=== PATIENT | female | born 1945 | race Caucasian/White ===

== ENCOUNTER 2016-10-29 13:23 | Observation (INO) | payer BC, MEDICARE ==
[2016-10-29] VITALS (11 sets, daily range): BP systolic 111–161; BP diastolic 57–87
[~2016-10-29] VITALS: Ht 167.6 cm; Wt 77.8 kg
[~2016-10-29 13:23] MED LIST: HYOS-19 SL; PANT40TA2 PO
--- OUTSIDE RECORDS SUMMARY | 2016-10-29 13:31 | XMS REPORT | Continuity of Care Document ---
Author Author [facility] Organization [facility] Address Unknown Phone Unavailable Allergies Active Description Code Type Severity Reaction Onset Reported/Identified Relationship to Patient Clinical Status Yes No Known Drug Allergies [id number] Drug Allergy Unknown N/ A 07/26/2015 Medications Problems Date Dx Coded Attending Type Code Diagnosis Diagnosed By 06/25/2015 ZULEMA HAMLIN MD, Ot J44.9 CHRONIC OBSTRUCTIVE PULMONARY DISEASE, U 07/11/2015 ZULEMA HAMLIN MD, Ot J44.9 CHRONIC OBSTRUCTIVE PULMONARY DISEASE, U 07/11/2015 ZULEMA HAMLIN MD, Ot J44.9 CHRONIC OBSTRUCTIVE PULMONARY DISEASE, U 07/13/2015 ZULEMA HAMLIN MD, Ot J44.9 CHRONIC OBSTRUCTIVE PULMONARY DISEASE, U 07/25/2015 ZULEMA HAMLIN MD, Ot J44.9 CHRONIC OBSTRUCTIVE PULMONARY DISEASE, U 07/25/2015 ZULEMA HAMLIN MD, Ot Z12.31 ENCNTR SCREEN MAMMOGRAM FOR MALIGNANT NE 07/26/2015 MAYCOL ELDER MD, Ot K21.9 GASTRO-ESOPHAGEAL REFLUX DISEASE WITHOUT 07/26/2015 MAYCOL ELDER MD Ot Z01.818 ENCOUNTER FOR OTHER PREPROCEDURAL EXAMIN 07/26/2015 MAYCOL ELDER MD, Ot Z12.11 ENCOUNTER FOR SCREENING FOR MALIGNANT NE 07/27/2015 MAYCOL ELDER MD, Ot K21.0 GASTRO-ESOPHAGEAL REFLUX DISEASE WITH ES 07/27/2015 MAYCOL ELDER MD, Ot K29.70 GASTRITIS, UNSPECIFIED, WITHOUT BLEEDING 07/27/2015 MAYCOL ELDER MD, Ot K44.9 DIAPHRAGMATIC HERNIA WITHOUT OBSTRUCTION 07/27/2015 MAYCOL ELDER MD, Ot K57.30 DVRTCLOS OF LG INT W/O PERFORATION OR AB 07/27/2015 MAYCOL ELDER MD, Ot K62.1 RECTAL POLYP 07/27/2015 MAYCOL ELDER MD, Ot K64.1 SECOND DEGREE HEMORRHOIDS 07/27/2015 JAEL WONG, MAYCOL Ot Z12.11 ENCOUNTER FOR SCREENING FOR MALIGNANT NE 08/07/2015 ZULEMA HAMLIN MD, Ot Z12.31 ENCNTR SCREEN MAMMOGRAM FOR MALIGNANT NE 08/17/2015 ZULEMA HAMLIN MD, Ot J44.9 CHRONIC OBSTRUCTIVE PULMONARY DISEASE, U 08/31/2015 ZULEMA HAMLIN MD, Ot J44.9 CHRONIC OBSTRUCTIVE PULMONARY DISEASE, U Procedures Results Encounters ACCT No. Visit Date/Time Discharge Status Pt. Type Provider Facility Loc./Unit Complaint [id number] 07/27/2015 08:13:00 2015 10:35:00 DIS Outpatient MAYCOL ELDER MD [facility] [id number] 07/26/2015 08:00:00 2015 08:59:00 DIS Outpatient MAYCOL ELDER MD [facility] PREOP [id number] 07/13/2015 09:15:00 2015 23:59:59 CLS Outpatient ZULEMA HAMLIN MD [facility] RAD [id number] 06/22/2015 09:41:00 2015 23:59:59 CLS Outpatient ZULEMA HAMLIN MD [facility] RAD
--- OUTSIDE RECORDS SUMMARY | 2016-10-29 13:31 | XMS REPORT | Clinical Summary ---
Author Author [facility] Organization [facility] Address Unknown Phone Unavailable Care Team Providers Care Forestry Conservation Worker Name Role Phone PCP Unavailable Source Comments Some departments are not documenting in the electronic medical record. If you do not see the information that you expected, contact Release of Information in the Health Information Management department at [phone] for further assistance in locating additional records.[facility] Allergies Not on File Current Medications Not on file Active Problems Not on file Social History Tobacco Use Types Packs/Day Years Used Date Never Assessed Sex Assigned at Date Recorded Not on file Last Filed Vital Signs Not on file Plan of Treatment Health Maintenance Due Date Last Done Comments HEPATITIS C SCREENING 1945 PHYSICAL (COMPREHENSIVE) 1953 EXAM PERTUSSIS VACCINE 1957 TETANUS VACCINE 1963 BREAST CANCER SCREENING 1986 COLORECTAL CANCER 02/16/1996 SCREENING SHINGLES VACCINE 2006 OSTEOPOROSIS SCREENING 2011 PREVNAR/PNEUMOVAX (#1) 2011 INFLUENZA VACCINE 11/07/2016 Results Not on filefrom Last 3 Months
[2016-10-29] MEDS ORDERED: RX-NITROGLYCERIN 0.4 MG TAB BTL 25'S SL PRN (13:45)
[2016-10-29 13:56] LABS: BASOPHILS # (AUTO) 0.1 10^3/uL (0.0-0.1); BASOPHILS % (AUTO) 1 % (0-10); EOSINOPHILS # (AUTO) 0.2 10^3/uL (0.0-0.3); EOSINOPHILS % (AUTO) 3 % (0-10); LYMPHOCYTES # (AUTO) 1.2 X 10^3 (1.0-4.0); LYMPHOCYTES % (AUTO) 16 % (12-44); MEAN CORPUSCULAR HEMOGLOBIN 29 PG (25-34); MEAN CORPUSCULAR HGB CONC 33 G/DL (32-36); MEAN CORPUSCULAR VOLUME 89 FL (80-99); MEAN PLATELET VOLUME 10.2 FL (7.4-10.4); MONOCYTES # (AUTO) 0.5 X 10^3 (0.0-1.0); MONOCYTES % (AUTO) 7 % (0-12); NEUTROPHILS # (AUTO) 5.4 X 10^3 (1.8-7.8); NEUTROPHILS % (AUTO) 73 % (42-75); PLATELET COUNT 314 10^3/uL (130-400); RED BLOOD COUNT 4.18 10^6/uL (4.35-5.85); RED CELL DISTRIBUTION WIDTH 13.4 % (10.0-14.5); WHITE BLOOD COUNT 7.3 10^3/uL (4.3-11.0)
--- NOTE | 2016-10-29 14:03 | ED Chest Pain ---
General Chief Complaint: Chest Pain Stated Complaint: CHEST PAINS Nursing Triage Note: ONSET OF CHEST PAIN APX 9A REPORTS PAIN IS ACROSS CHEST. Nursing Sepsis Screen: No Definite Risk Source: patient Exam Limitations: no limitations History of Present Illness Time seen by provider: 13:31 Initial Comments Here with complaint of central chest pain onset at 9 a.m. this morning. She is from [place], [place] and came here due to concerns of chest pain. She is reporting central chest discomfort that she reports is dull and tight. It is getting better over time. She did take aspirin 325 mg by mouth this morning. Does report vomiting as well as pain that worsens with activity. Does have some shortness of breath but states that she has probable borderline COPD. Denies sweating or dizziness. 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 NTG SL COVERSTITCH MACHINE OPERATOR: No Associated Symptoms: No abdominal pain, No back pain, No dizziness, No fever/ chills, No nausea/vomiting, shortness of breath, No weakness Allergies and Home Medications Allergies Coded Allergies: No Known Drug Allergies (Unverified , 07/26/15) Home Medications No Active Prescriptions or Reported Meds Review of Systems Constitutional: see HPI, No chills, No fever EENTM: No Symptoms Reported Respiratory: See HPI, Denies Cough Cardiovascular: See HPI, Chest Pain, Denies Edema, Denies Lightheadedness Gastrointestinal: No Symptoms Reported Genitourinary: No Symptoms Reported Musculoskeletal: no symptoms reported Skin: no symptoms reported All Other Systems Reviewed Negative Unless Noted: Yes Past Jjthjrc-Wsohxp-Rerpjm Hx Patient Social History Alcohol Use: Denies Use Recreational Drug Use: No Smoking Status: Former Smoker Recent Foreign Travel: No Contact w/Someone Who Travel: No Recent Infectious Disease Expo: No Surgeries History of Surgeries: Yes (CYST REMOVED) Surgeries: Hysterectomy, Tonsillectomy, Tubal Ligation Respiratory History of Respiratory Disorde: Yes Respiratory Disorders: Asthma Cardiovascular History of Cardiac Disorders: No Neurological History of Neurological Disord: No 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 Gastrointestinal History of Gastrointestinal Di: No Musculoskeletal History of Musculoskeletal Dis: Yes Musculoskeletal Disorders: Arthritis Endocrine History of Endocrine Disorders: No Psychosocial History of Psychiatric Problem: No Reviewed Nursing Assessment Reviewed/Agree w Nursing PMH: Yes Family Medical History Significant Family History: CAD Over 55 Years Old Physical Exam Vital Signs Vital Sign - Last 12Hours 10/29/16 10/29/16 13:23 14:49 Temp 97.8 Pulse 73 Resp 18 B/P (MAP) 176/89 Pulse Ox 96 O2 Delivery Room Air Capillary Refill : Less Than 3 Seconds General Appearance: No Apparent Distress, WD/WN HEENT: PERRL/EOMI, Pharynx Normal Neck: Non Tender, Supple Respiratory: Lungs Clear, Normal Breath Sounds Cardiovascular: Regular Rate, Rhythm, No Murmur Gastrointestinal: Non Tender, Soft Extremity: Normal Capillary Refill, Normal Range of Motion, Non Tender, No Calf Tenderness Neurologic/Psychiatric: Alert, Oriented x3 Skin: Normal Color, Warm/Dry Progress/Results/Core Measures Results/Orders Lab Results Laboratory Tests Test 10/29/16 13:29 Range/Units White Blood Count 7.3 4.3-11.0 10^3/uL Red Blood Count 4.18 L 4.35-5.85 10^6/uL Hemoglobin 12.3 11.5-16.0 G/DL Hematocrit 37 35-52 % Mean Corpuscular Volume 89 80-99 FL Mean Corpuscular Hemoglobin 29 25-34 PG Mean Corpuscular Hemoglobin Concent 33 32-36 G/DL Red Cell Distribution Width 13.4 10.0-14.5 % Platelet Count 314 130-400 10^3/uL Mean Platelet Volume 10.2 7.4-10.4 FL Neutrophils (%) (Auto) 73 42-75 % Lymphocytes (%) (Auto) 16 12-44 % Monocytes (%) (Auto) 7 0-12 % Eosinophils (%) (Auto) 3 0-10 % Basophils (%) (Auto) 1 0-10 % Neutrophils # (Auto) 5.4 1.8-7.8 X 10^3 Lymphocytes # (Auto) 1.2 1.0-4.0 X 10^3 Monocytes # (Auto) 0.5 0.0-1.0 X 10^3 Eosinophils # (Auto) 0.2 0.0-0.3 10^3/uL Basophils # (Auto) 0.1 0.0-0.1 10^3/uL Prothrombin Time 13.2 12.2-14.7 SEC INR Comment 1.0 0.8-1.4 Activated Partial Thromboplast Time 29 24-35 SEC D-Dimer 0.41 0.00-0.49 UG/ML Sodium Level 138 135-145 MMOL/L Potassium Level 3.9 3.6-5.0 MMOL/L Chloride Level 106 98-107 MMOL/L Carbon Dioxide Level 25 21-32 MMOL/L Anion Gap 7 5-14 MMOL/L Blood Urea Nitrogen 13 7-18 MG/DL Creatinine 1.03 0.60-1.30 MG/DL Estimat Glomerular Filtration Rate 53 BUN/Creatinine Ratio 13 Glucose Level 104 70-105 MG/DL Calcium Level 8.7 8.5-10.1 MG/DL Magnesium Level 2.0 1.8-2.4 MG/DL Total Bilirubin 0.4 0.1-1.0 MG/DL Aspartate Amino Transf (AST/SGOT) 17 5-34 U/L Alanine Aminotransferase (ALT/SGPT) 13 0-55 U/L Alkaline Phosphatase 100 40-136 U/L Myoglobin 60.9 10.0-92.0 NG/ML Troponin I < 0.30 <0.30 NG/ML B-Type Natriuretic Peptide 129.9 H <100.0 PG/ML Total Protein 6.1 L 6.4-8.2 GM/DL Albumin 3.8 3.2-4.5 GM/DL Amylase Level 48 25-125 U/L Lipase 16 8-78 U/L My Orders Orders - SARINA MERIDA MD Ekg Tracing (10/29/16 13:28) Cbc With Automated Diff (10/29/16 13:34) Magnesium (10/29/16 13:34) Chest 1 View, Ap/Pa Only (10/29/16 13:34) Cardiac Profile 1 (10/29/16 13:34) Comprehensive Metabolic Panel (10/29/16 13:34) Myoglobin Serum (10/29/16 13:34) Protime With Inr (10/29/16 13:34) Partial Thromboplastin Time (10/29/16 13:34) O2 (10/29/16 13:34) Monitor-Rhythm Ecg Trace Only (10/29/16 13:34) Lipid Panel (10/30/16 06:00) Rx-Nitroglycerin Sl Tabs (Rx-Nitrostat S (10/29/16 13:45) Saline Lock/Iv-Start (10/29/16 13:34) Lipase (10/29/16 13:34) Amylase (10/29/16 13:34) BNP (10/29/16 13:34) Fibrin Degradation Products (10/29/16 13:34) Vital Signs/I&O Vital Sign - Last 12Hours 10/29/16 10/29/16 13:23 14:49 Temp 97.8 Pulse 73 65 Resp 18 18 B/P (MAP) 176/89 118/76 Pulse Ox 96 O2 Delivery Room Air Blood Pressure Mean: 118 Progress Note : Progress Note Seen and evaluated. IV, EKG, chest x-ray ordered. Monitor patient. No acute findings on evaluation and pain resolved during ER stay. Patient is a higher risk due to family history and age as well as history of smoking. I did discuss the case with Dr. Reyes who accepts patient for admission, observation status. I did talk with Dr. Jones and he did see the patient in the ER. Likely stress test tomorrow. Admit, observation status. Patient and family agree with plan. ECG Initial ECG Impression Date: Oct 29, 2016 Initial ECG Impression Time: 13:31 Initial ECG Rate: 73 Initial ECG Rhythm: Normal Sinus Initial ECG Impression: Normal Initial ECG Comparisson: No Previous ECG Available Comment Sinus rhythm with normal axis. No evidence of ST elevation RI. No previous available for comparison. Interpreted by me. Diagnostic Imaging Diagonstic Imaging: Xray Plain Films/CT/US/NM/MRI: chest Comments [place], [place] NAME: CASSYEMILIA [facility] REC#: [id number] PT STATUS: REG ER : 1945 PHYSICIAN: SARINA MERIDA MD ADMIT DATE: 10/29/16/ER Draft Date of Exam:10/29/16 CHEST 1 VIEW, AP/PA ONLY INDICATION: New onset chest pain. FINDINGS: Cardiomediastinal and hilar contours stable and unremarkable. There is chronic air trapping and features of COPD showing no appreciable change from study of June 2015. No failure, effusion, or pneumothorax; and no focal infiltrate. IMPRESSION: Stable chronic findings. Dictated on workstation # [id number] Dict: 10/29/16 1403 Trans: 10/29/16 1405 [id number] Interpreted by: LYLY CONTRERAS Electronically signed by: Departure Communication Time/Spoke to Admitting Phy: 15:20 Impression Impression: Primary Impression: Chest pain Qualified Codes: R07.9 - Chest pain, unspecified Disposition: ADMITTED INPATIENT Condition: Stable Admissions Decision to Admit Reason: Admit from ER (General) Decision to Admit/Date: Oct 29, 2016 Time/Decision to Admit Time: 15:20 Departure-Patient Inst. Referrals: ZULEMA HAMLIN MD (PCP/Family) Primary Care Physician Scripts No Active Prescriptions or Reported Meds SARINA MERIDA MD Oct 29, 2016 14:03
--- NOTE | 2016-10-29 14:06 | Diagnostic Imaging Report ---
INDICATION: New onset chest pain. FINDINGS: Cardiomediastinal and hilar contours stable and unremarkable. There is chronic air trapping and features of COPD showing no appreciable change from study of June 2015. No failure, effusion, or pneumothorax; and no focal infiltrate. IMPRESSION: Stable chronic findings. Dictated by: Dictated on workstation # [id number]
[2016-10-29 14:10] LABS: PROTHROMBIN TIME PATIENT 13.2 SEC (12.2-14.7)
[2016-10-29 14:17] LABS: ALANINE AMINOTRANSFERASE 13 U/L (0-55); ALBUMIN 3.8 GM/DL (3.2-4.5); AMYLASE 48 U/L (25-125); ANION GAP 7 MMOL/L (5-14); ASPARTATE AMINO TRANSFERASE 17 U/L (5-34); BILIRUBIN,TOTAL 0.4 MG/DL (0.1-1.0); BLOOD UREA NITROGEN 13 MG/DL (7-18); BUN/CREATININE RATIO 13; CALCIUM 8.7 MG/DL (8.5-10.1); CARBON DIOXIDE 25 MMOL/L (21-32); CHLORIDE 106 MMOL/L (98-107); CREATININE SERUM 1.03 MG/DL (0.60-1.30); GFR ESTIMATED 53; GLUCOSE 104 MG/DL (70-105); LIPASE 16 U/L (8-78); POTASSIUM 3.9 MMOL/L (3.6-5.0); SODIUM 138 MMOL/L (135-145); TOTAL PROTEIN 6.1 GM/DL (6.4-8.2)
[2016-10-29 14:23] LABS: MYOGLOBIN SERUM 60.9 NG/ML (10.0-92.0)
--- NOTE | 2016-10-29 15:53 | Consultation-Cardiology ---
HPI-Cardiology Cardiology Consultation Date of Consultation 10/29/16 Date of Admission Time Seen by Provider: 15:50 Indication: chest pain HPI 71 years old lady with history of bronchial asthma, history of tobaccoism, stopped smoking about 10 years ago. Was in her usual state of health until this morning when she started having chest pain, described it as dull achiness across her chest and in the retrosternal area associated with numbness on the left side of her face. Persisted in the morning, took sublingual nitroglycerin then came to the emergency room from [place], pain was improving but continued to have mild discomfort until she arrived to the emergency room by then she was feeling better, did not require any nitroglycerin. Currently she is chest pain- free, admitted having some palpitation, heartburn, mild dyspnea, she reported some chest pain in the remote past. No recent episodes were reported. She is fairly active with no other symptoms. Home Medications & Allergies Allergies: Coded Allergies: No Known Drug Allergies (Unverified , 07/26/15) Home Medication List Reviewed: Yes RBT-Apdjaz-Rmfgsv Hx Patient Social History Employed/Student: employed Alcohol Use: Denies Use Recreational Drug Use: No Smoking Status: Former Smoker Recent Foreign Travel: No Recent Infectious Disease Expo: No Past Medical History Past medical history as discussed below Family Medical History Family Medical Hx Daughter had history of aortic valve congenital disease Constitutional: no symptoms reported, see HPI EENTM: see HPI, no symptoms reported Respiratory: see HPI, short of breath, wheezing Cardiovascular: see HPI, chest pain, No edema, No Hx of Intervention, palpitations, No syncope, No vascular heart diseas, No other Gastrointestinal: see HPI, nausea Genitourinary: no symptoms reported, see HPI Musculoskeletal: no symptoms reported, see HPI Skin: no symptoms reported, see HPI Psychiatric/Neurological: No Symptoms Reported, See HPI Reviewed Test Results Reviewed Test Results Lab Laboratory Tests Test 10/29/16 13:29 Range/Units White Blood Count 7.3 4.3-11.0 10^3/uL Red Blood Count 4.18 L 4.35-5.85 10^6/uL Hemoglobin 12.3 11.5-16.0 G/DL Hematocrit 37 35-52 % Mean Corpuscular Volume 89 80-99 FL Mean Corpuscular Hemoglobin 29 25-34 PG Mean Corpuscular Hemoglobin Concent 33 32-36 G/DL Red Cell Distribution Width 13.4 10.0-14.5 % Platelet Count 314 130-400 10^3/uL Mean Platelet Volume 10.2 7.4-10.4 FL Neutrophils (%) (Auto) 73 42-75 % Lymphocytes (%) (Auto) 16 12-44 % Monocytes (%) (Auto) 7 0-12 % Eosinophils (%) (Auto) 3 0-10 % Basophils (%) (Auto) 1 0-10 % Neutrophils # (Auto) 5.4 1.8-7.8 X 10^3 Lymphocytes # (Auto) 1.2 1.0-4.0 X 10^3 Monocytes # (Auto) 0.5 0.0-1.0 X 10^3 Eosinophils # (Auto) 0.2 0.0-0.3 10^3/uL Basophils # (Auto) 0.1 0.0-0.1 10^3/uL Prothrombin Time 13.2 12.2-14.7 SEC INR Comment 1.0 0.8-1.4 Activated Partial Thromboplast Time 29 24-35 SEC D-Dimer 0.41 0.00-0.49 UG/ML Sodium Level 138 135-145 MMOL/L Potassium Level 3.9 3.6-5.0 MMOL/L Chloride Level 106 98-107 MMOL/L Carbon Dioxide Level 25 21-32 MMOL/L Anion Gap 7 5-14 MMOL/L Blood Urea Nitrogen 13 7-18 MG/DL Creatinine 1.03 0.60-1.30 MG/DL Estimat Glomerular Filtration Rate 53 BUN/Creatinine Ratio 13 Glucose Level 104 70-105 MG/DL Calcium Level 8.7 8.5-10.1 MG/DL Magnesium Level 2.0 1.8-2.4 MG/DL Total Bilirubin 0.4 0.1-1.0 MG/DL Aspartate Amino Transf (AST/SGOT) 17 5-34 U/L Alanine Aminotransferase (ALT/SGPT) 13 0-55 U/L Alkaline Phosphatase 100 40-136 U/L Myoglobin 60.9 10.0-92.0 NG/ML Troponin I < 0.30 <0.30 NG/ML B-Type Natriuretic Peptide 129.9 H <100.0 PG/ML Total Protein 6.1 L 6.4-8.2 GM/DL Albumin 3.8 3.2-4.5 GM/DL Amylase Level 48 25-125 U/L Lipase 16 8-78 U/L Physical Exam Vital Signs Vital Sign - Last 12Hours 10/29/16 10/29/16 13:23 14:49 Temp 97.8 Pulse 73 Resp 18 B/P (MAP) 176/89 Pulse Ox 96 O2 Delivery Room Air Capillary Refill : Less Than 3 Seconds General Appearance: No Apparent Distress, WD/WN Eyes: Bilateral Eye Normal Inspection, Bilateral Eye PERRL, Bilateral Eye EOMI HEENT: PERRL/EOMI, TMs Normal, Normal ENT Inspection, Pharynx Normal Neck: Full Range of Motion, Normal Inspection, Non Tender, Supple, Carotid Bruit Respiratory: Chest Non Tender, Lungs Clear, Normal Breath Sounds, No Accessory Muscle Use, No Respiratory Distress Cardiovascular: Regular Rate, Rhythm, No Edema, No Gallop, No JVD, No Murmur, Normal Peripheral Pulses Gastrointestinal: Normal Bowel Sounds, No Organomegaly, No Pulsatile Mass, Non Tender, Soft Back: Normal Inspection, No CVA Tenderness, No Vertebral Tenderness Extremity: Normal Capillary Refill, Normal Inspection, Normal Range of Motion, Non Tender, No Calf Tenderness, No Pedal Edema Neurologic/Psychiatric: Alert, Oriented x3, No Motor/Sensory Deficits, Normal Mood/Affect Skin: Normal Color, Warm/Dry Lymphatic: No Adenopathy A/P-Cardiology Admission Diagnosis Chest pain nonspecific etiology Gastroesophageal reflux disease Hypertension Bronchial asthma Assessment/Plan Chest pain nonspecific etiology resembling angina, reported improvement, EKG did not show any acute abnormality, cardiac enzymes first set are negative. I will continue monitoring and planning for stress test in the morning assuming her chest pain did not recur and cardiac enzymes were negative. Meanwhile patient was started on PPI. Gastroesophageal reflux disease, I will start on PPI. Dyspnea, wheezing, history of bronchial asthma. Using inhaler. Continue to monitor. Mild hypertension occurred initially during the chest pain episode, currently blood pressure is controlled. Continue to monitor Family history of heart disease Clinical Quality Measures AMI/AHF: ASA po Prior to arrival: Yes (325MG) BOB SCHMIDT MD Oct 29, 2016 15:53
[2016-10-29] MEDS ORDERED: PANTOPRAZOLE 40 MG (PROTONIX) TAB PO ONE (16:00)
--- OUTSIDE RECORDS SUMMARY | 2016-10-29 16:42 | XMS REPORT | Clinical Summary ---
Author Author [facility] Organization [facility] Address Unknown Phone Unavailable Care Team Providers Care Video Intern Name Role Phone PCP Unavailable Source Comments Some departments are not documenting in the electronic medical record. If you do not see the information that you expected, contact Release of Information in the Health Information Management department at [phone] for further assistance in locating additional records.[facility] Allergies Not on File Current Medications Not [...]
--- OUTSIDE RECORDS SUMMARY | 2016-10-29 16:42 | XMS REPORT | Continuity of Care Document ---
Author Author [facility] Organization [facility] Address Unknown Phone Unavailable Allergies Active Description Code Type Severity Reaction Onset Reported/Identified Relationship to Patient Clinical Status Yes No Known Drug Allergies [id number] Drug Allergy Unknown N/ A 07/26/2015 Medications [...] INT W/O PERFORATION OR AB 07/27/2015 MAYCOL EDLER MD, Ot K62.1 RECTAL POLYP 07/27/2015 MAYCOL [...] Status Pt. Type Provider Facility Loc./Unit Complaint [id number] 07/27/2015 08:13:00 2015 10:35:00 DIS Outpatient MAYCOL ELDER MD [facility] [id number] 07/26/2015 08:00:00 2015 08:59:00 DIS Outpatient MAYCOL ELDER MD [facility] PREOP [id number] 07/13/2015 09:15:00 2015 23:59:59 CLS Outpatient ZULEMA HAMLIN MD [facility] RAD [id number] 06/22/2015 09:41:00 2015 23:59:59 CLS Outpatient ZULEMA HAMLIN MD [facility] RAD
[2016-10-29] MEDS ORDERED: ALBU18HF2 IH (16:53)
[2016-10-29] MEDS ORDERED: NITROGLYCERIN SUBLINGUAL 0.4 MG TAB (NITROSTAT) SL PRN (17:15)
[2016-10-29] MEDS ORDERED: CATHETER FLUSH 10 ML SYR IV PRN (17:15)
[2016-10-29] MEDS ORDERED: morphine INJ 4 MG/ML 1 ML (VIAL/SYRINGE) IV PRN (17:15)
[2016-10-29] MEDS ORDERED: ONDANSETRON 4 MG/2 ML (SDV) Z0FRAN IV PRN (17:15)
--- NOTE | 2016-10-29 18:24 | History & Physicial ---
History of Present Illness History of Present Illness Reason for visit/HPI 71-year-old female who has known asthma presents to [facility] emergency department during the afternoon of October 29, 2016 with improving chest pain. She was initially in [facility] when she had chest pain that was unrelieved. She did take an ASA 325mg and proceeded to the emergency department. Her daughter drove her here. Patient has no history of coronary artery disease. She did not admit to any nausea, vomiting, or any diaphoresis. She is currently under treatment for asthma only as well as "heartburn". Patient continues to work regularly at [employer] in [facility]. Date of Admission Oct 29, 2016 at 15:29 Date Seen by Provider: Oct 29, 2016 Time Seen by Provider: 18:30 I consulted on this patient on 10/29/16 18:30 Attending Physician Zulema Hamlin MD Admitting Physician Zulema Hamlin MD Consult Allergies and Home Medications Allergies Coded Allergies: No Known Drug Allergies (Unverified , 10/29/16) Home Medications Albuterol Sulfate 18 Gm Hfa.aer.ad, 2 PUFF IH EVERY 4-6 HOURS PRN for SHORTNESS OF BREATH, (Reported) Past Dabqpci-Wtbeus-Icpljy Hx Patient Social History Employed/Student: employed Alcohol Use: Denies Use Recreational Drug Use: No Smoking Status: Former Smoker Former Smoker, Quit: Mar 09, 2006 Type Used: Cigarettes Physical Abuse Screen: No Sexual Abuse: No Recent Foreign Travel: No Contact w/other who traveled: No Recent Hopitalizations: No Recent Infectious Disease Expo: No Immunizations Up To Date Date of Pneumonia Vaccine: Jan 08, 2016 Seasonal Allergies Seasonal Allergies: No Surgeries Yes (CYST REMOVED) Hysterectomy, Tonsillectomy, Tubal Ligation Respiratory Yes Currently Using CPAP: No Currently Using BIPAP: No Cardiovascular No Neurological 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 Genitourinary No Gastrointestinal Yes Gastroesophageal Reflux Musculoskeletal Yes Arthritis Endocrine History of Endocrine Disorders: No HEENT History of HEENT Disorders: No Cancer No Psychosocial History of Psychiatric Problem: No Integumentary History of Skin or Integumenta: No Blood Transfusions History of Blood Disorders: No Reviewed Nursing Assessment Reviewed/Agree w Nursing PMH: Yes Family Medical History Significant Family History: CAD Over 55 Years Old Family Hx: Congenital heart disease DAUGHTER Diabetes mellitus 19 MOTHER Myocardial infarction 19 MOTHER Constitutional: see HPI Physical Exam Vital Signs Vital Sign - Last 12Hours 10/29/16 10/29/16 13:23 14:49 Temp 97.8 Pulse 73 Resp 18 B/P (MAP) 176/89 Pulse Ox 96 O2 Delivery Room Air Capillary Refill : Less Than 3 Seconds General Appearance: No Apparent Distress Eyes: Bilateral Eye Normal Inspection HEENT: Pharynx Normal Neck: Supple Respiratory: No Accessory Muscle Use, Crackles (few in the bases) Cardiovascular: Regular Rate, Rhythm Gastrointestinal: Soft Rectal: Deferred Assessment/Plan Assessment and Plan 1. Chest pain without history of coronary artery disease. Her risk factors include history of tobaccoism as well as hypertension. -patient to be admitted to [facility] for further cardiac enzyme monitoring. She will also have serial EKGs -Consultation with cardiology and most likely having cardiac stress test. 2. Asthma -She will be continued on her albuterol or Ventolin treatments as necessary. 3. Epigastric pain -- "heartburn" --PPI started 4. Tobaccoism previous history of Problems: Admission Diagnosis 1. Chest pain without history of coronary artery disease. Her risk factors include history of tobaccoism as well as hypertension. 2. Asthma 3. Epigastric pain -- "heartburn" 4. Tobaccoism previous history of Clinical Quality Measures AMI/AHF: ASA po Prior to arrival: Yes DVT/VTE Risk/Contraindication: Risk Factor Score Per Nursin RFS Level Per Nursing on Admit: 3=High ZULEMA HAMLIN MD Oct 29, 2016 18:24
[2016-10-29] MEDS ORDERED: RT-ALBUTEROL SULF 2.5 MG/3 ML PRE-MIX VIAL IH PRN (18:45)
[2016-10-29 19:56] LABS: CREATINE KINASE 65 U/L (29-168)
[2016-10-29 20:05] LABS: MYOGLOBIN SERUM 69.6 NG/ML (10.0-92.0); TROPONIN I < 0.30 NG/ML (<0.30)
[2016-10-29] MEDS: CATHETER FLUSH 10 ML SYR IV SCH (21:03)
[2016-10-30 04:00] VITALS: BP 105/59
[2016-10-30] MEDS: CATHETER FLUSH 10 ML SYR IV SCH ×2 (05:43→14:49)
[2016-10-30 05:50] LABS: BASOPHILS # (AUTO) 0.1 10^3/uL (0.0-0.1); BASOPHILS % (AUTO) 1 % (0-10); EOSINOPHILS # (AUTO) 0.4 10^3/uL (0.0-0.3); EOSINOPHILS % (AUTO) 6 % (0-10); LYMPHOCYTES # (AUTO) 1.4 X 10^3 (1.0-4.0); LYMPHOCYTES % (AUTO) 22 % (12-44); MEAN CORPUSCULAR HEMOGLOBIN 29 PG (25-34); MEAN CORPUSCULAR HGB CONC 33 G/DL (32-36); MEAN CORPUSCULAR VOLUME 90 FL (80-99); MEAN PLATELET VOLUME 10.3 FL (7.4-10.4); MONOCYTES # (AUTO) 0.5 X 10^3 (0.0-1.0); MONOCYTES % (AUTO) 8 % (0-12); NEUTROPHILS # (AUTO) 3.9 X 10^3 (1.8-7.8); NEUTROPHILS % (AUTO) 63 % (42-75); PLATELET COUNT 333 10^3/uL (130-400); RED BLOOD COUNT 4.45 10^6/uL (4.35-5.85); RED CELL DISTRIBUTION WIDTH 13.5 % (10.0-14.5); WHITE BLOOD COUNT 6.2 10^3/uL (4.3-11.0)
[2016-10-30 06:22] LABS: ALANINE AMINOTRANSFERASE 15 U/L (0-55); ANION GAP 12 MMOL/L (5-14); ASPARTATE AMINO TRANSFERASE 19 U/L (5-34); BILIRUBIN,TOTAL 0.7 MG/DL (0.1-1.0); BLOOD UREA NITROGEN 14 MG/DL (7-18); BUN/CREATININE RATIO 13; CALCIUM 9.5 MG/DL (8.5-10.1); CARBON DIOXIDE 23 MMOL/L (21-32); CHLORIDE 105 MMOL/L (98-107); CHOLESTEROL 199 MG/DL (< 200); CREATININE SERUM 1.09 MG/DL (0.60-1.30); DIRECT LDL 124 MG/DL (1-129); GFR ESTIMATED 50; GLUCOSE 95 MG/DL (70-105); POTASSIUM 4.2 MMOL/L (3.6-5.0); SODIUM 140 MMOL/L (135-145); TOTAL PROTEIN 6.8 GM/DL (6.4-8.2); TRIGLYCERIDES 110 MG/DL (<150); VLDL CHOLESTEROL 22 MG/DL (5-40)
[2016-10-30 06:28] LABS: TROPONIN I < 0.30 NG/ML (<0.30)
[2016-10-30] MEDS ORDERED: PANTOPRAZOLE 40 MG (PROTONIX) TAB PO SCH (07:00)
--- NOTE | 2016-10-30 07:44 | Progress Note (SOAP) ---
Subjective Date Seen by Provider: Oct 30, 2016 Time Seen by Provider: 07:30 Subjective/Events-last exam slept well overnight. No chest pain Objective Exam Vital Signs Date Time Temp Pulse Resp B/P (MAP) Pulse Ox O2 Delivery O2 Flow Rate FiO2 10/30/16 07:00 57 10/30/16 06:36 92 Room Air 10/30/16 04:00 97.7 61 20 105/59 93 Room Air 10/30/16 01:00 80 10/29/16 23:44 97.9 58 20 111/64 94 Room Air 10/29/16 21:00 Room Air 10/29/16 20:30 98.7 66 20 115/57 94 Room Air 10/29/16 19:30 98.5 67 20 135/61 96 Room Air 10/29/16 19:02 92 21 10/29/16 18:46 96 10/29/16 18:41 61 96 21 10/29/16 18:35 80 16 142/87 96 Room Air 10/29/16 18:23 79 10/29/16 17:40 96.0 61 14 156/75 99 Room Air 10/29/16 17:25 66 16 144/78 93 Room Air 10/29/16 17:09 68 16 151/64 96 Room Air 10/29/16 17:04 66 16 161/79 96 Room Air 10/29/16 16:56 96.1 69 16 159/66 95 Room Air 10/29/16 16:50 62 18 96 Room Air 10/29/16 14:49 65 18 118/76 96 Room Air 10/29/16 13:23 97.8 73 18 176/89 Capillary Refill : Less Than 3 Seconds General Appearance: No Apparent Distress Neck: Normal Inspection Respiratory: Lungs Clear (except for apical wheeze) Cardiovascular: Regular Rate, Rhythm Gastrointestinal: soft Results Lab Laboratory Tests 10/29/16 13:29: White Blood Count 7.3, Red Blood Count 4.18L, Hemoglobin 12.3, Hematocrit 37, Mean Corpuscular Volume 89, Mean Corpuscular Hemoglobin 29, Mean Corpuscular Hemoglobin Concent 33, Red Cell Distribution Width 13.4, Platelet Count 314, Mean Platelet Volume 10.2, Neutrophils (%) (Auto) 73, Lymphocytes (%) (Auto) 16 , Monocytes (%) (Auto) 7, Eosinophils (%) (Auto) 3, Basophils (%) (Auto) 1, Neutrophils # (Auto) 5.4, Lymphocytes # (Auto) 1.2, Monocytes # (Auto) 0.5, Eosinophils # (Auto) 0.2, Basophils # (Auto) 0.1, Prothrombin Time 13.2, INR Comment 1.0, Activated Partial Thromboplast Time 29, D-Dimer 0.41, Sodium Level 138, Potassium Level 3.9, Chloride Level 106, Carbon Dioxide Level 25, Anion Gap 7, Blood Urea Nitrogen 13, Creatinine 1.03, Estimat Glomerular Filtration Rate 53, BUN/Creatinine Ratio 13, Glucose Level 104, Calcium Level 8.7, Magnesium Level 2.0, Total Bilirubin 0.4, Aspartate Amino Transf (AST/SGOT) 17, Alanine Aminotransferase (ALT/SGPT) 13, Alkaline Phosphatase 100, Myoglobin 60.9 , Troponin I < 0.30, B-Type Natriuretic Peptide 129.9H, Total Protein 6.1L, Albumin 3.8, Amylase Level 48, Lipase 16 10/29/16 19:28: Myoglobin 69.6, Troponin I < 0.30, Total Creatine Kinase 65 10/30/16 05:21: White Blood Count 6.2, Red Blood Count 4.45, Hemoglobin 13.1, Hematocrit 40, Mean Corpuscular Volume 90, Mean Corpuscular Hemoglobin 29, Mean Corpuscular Hemoglobin Concent 33, Red Cell Distribution Width 13.5, Platelet Count 333, Mean Platelet Volume 10.3, Neutrophils (%) (Auto) 63, Lymphocytes (%) (Auto) 22 , Monocytes (%) (Auto) 8, Eosinophils (%) (Auto) 6, Basophils (%) (Auto) 1, Neutrophils # (Auto) 3.9, Lymphocytes # (Auto) 1.4, Monocytes # (Auto) 0.5, Eosinophils # (Auto) 0.4H, Basophils # (Auto) 0.1, Sodium Level 140, Potassium Level 4.2, Chloride Level 105, Carbon Dioxide Level 23, Anion Gap 12, Blood Urea Nitrogen 14, Creatinine 1.09, Estimat Glomerular Filtration Rate 50, BUN/ Creatinine Ratio 13, Glucose Level 95, Calcium Level 9.5, Total Bilirubin 0.7, Aspartate Amino Transf (AST/SGOT) 19, Alanine Aminotransferase (ALT/SGPT) 15, Alkaline Phosphatase 104, Troponin I < 0.30, Total Protein 6.8, Albumin 4.0, Triglycerides Level 110, Cholesterol Level 199, LDL Cholesterol Direct 124, VLDL Cholesterol 22, HDL Cholesterol 57 Assessment/Plan Assessment/Plan Assess & Plan/Chief Complaint 1. Chest pain without history of coronary artery disease. Her risk factors include history of tobaccoism as well as hypertension. -patient to be admitted to [facility] for further cardiac enzyme monitoring. She will also have serial EKGs -Consultation with cardiology and most likely having cardiac stress test. 10/30 Cardiac stress test this am -labs reviewed and wnr 2. Asthma -She will be continued on her albuterol or Ventolin treatments as necessary. 3. Epigastric pain -- "heartburn" --PPI started 10/29 Clinical Quality Measures AMI/AHF: ASA po Prior to arrival: Yes DVT/VTE Risk/Contraindication: Risk Factor Score Per Nursin RFS Level Per Nursing on Admit: 3=High ZULEMA HAMLIN MD Oct 30, 2016 07:44
[2016-10-30 08:00] VITALS: BP 118/61
[2016-10-30 08:46] VITALS: BP 126/60
[2016-10-30] MEDS ORDERED: ASPIRIN E.C. 325 MG (ECOTRIN) TABLET PO SCH (09:00)
[2016-10-30 12:00] VITALS: BP 116/57
[2016-10-30 15:35] VITALS: BP 120/65
--- NOTE | 2016-10-30 16:22 | Cardiology Progress Note ---
Subjective Date Seen by Provider: Oct 30, 2016 Time Seen by Provider: 16:21 Subjective/Events-last exam patient is feeling better, no further episode of chest pain, stress test did not show any ischemia. Review of Systems General: No Chills, No Night Sweats, No Fatigue, No Malaise, No Appetite, No Other HEENT: No Head Aches, No Visual Changes, No Eye Pain, No Ear Pain, No Dysphasia , No Sinus Congestion, No Post Nasal Drip, No Sore Throat, No Other Pulmonary: No Dyspnea, No Cough, No Pleuritic Chest Pain, No Other Cardiovascular: No: Chest Pain, Palpitations, Orthopnea, Paroxysmal Noc. Dyspnea, Edema, Lt Headedness, Other Objective-Cardiology Exam Last Set of Vital Signs Vital Signs 10/29/16 10/30/16 19:02 15:35 Temp 98.1 Pulse 69 Resp 20 B/P (MAP) 120/65 Pulse Ox 94 O2 Delivery Room Air FiO2 21 Capillary Refill : Less Than 3 Seconds I&O Intake and Output 10/31/16 00:00 Intake Total 0 ml Output Total 250 ml Balance -250 ml Intake Oral 0 ml Output Urine Total 250 ml General: Alert, Oriented X3, Cooperative HEENT: Atraumatic, PERRLA Neck: Supple, No JVD, No Thyromegaly Lungs: Clear to Auscultation, Normal Air Movement Heart: Regular Rate, Normal S1, Normal S2, No Murmurs Abdomen: Normal Bowel Sounds, Soft, No Tenderness, No Hepatosplenomegaly, No Masses Extremities: No Clubbing, No Cyanosis, No Edema, Normal Pulses, No Tenderness/ Swelling Skin: No Rashes, No Breakdown, No Significant Lesion Neuro: Normal Gait, Normal Speech, Strength at 5/5 X4 Ext, Normal Tone, Sensation Intact Psych/Mental Status: Mental Status NL, Mood NL Results Lab Laboratory Tests 10/30/16 05:21 A/P-Cardiology Admission Diagnosis Chest pain nonspecific etiology Gastroesophageal reflux disease Hypertension Bronchial asthma Assessment/Plan Chest pain nonspecific etiology, chronic enzymes were negative, exercise stress test showed no ischemia or infarction. Continue to monitor as an outpatient Gastroesophageal reflux disease, started on PPI. Followed by primary care physician Dyspnea, wheezing, history of bronchial asthma. Using inhaler. Continue to monitor. Mild hypertension occurred initially during the chest pain episode, currently blood pressure is controlled. Continue to monitor as an outpatient Family history of heart disease Clinical Quality Measures AMI/AHF: ASA po Prior to arrival: Yes DVT/VTE Risk/Contraindication: Risk Factor Score Per Nursin RFS Level Per Nursing on Admit: 3=High BOB SCHMIDT MD Oct 30, 2016 16:22
--- NOTE | 2016-10-30 19:52 | STRESS TEST ---
DATE OF SERVICE: 10/30/2016 PROCEDURE: Exercise Myoview stress test report. Baseline heart rate is 56. Baseline blood pressure 129/76. Baseline EKG is sinus rhythm with no ischemic changes. In summary, the patient started exercising with a baseline heart rate, blood pressure and EKG mentioned above. At minute 4 and 16 seconds, the patient was injected with stress dose of Myoview. She was able to finish a total of 5 minutes 15 seconds on standard Edmundo protocol. With peak exercise level, heart rate was 134. Blood pressure was 177/88. EKG was showing minimal nondiagnostic changes. During recovery, heart rate and blood pressure returned to baseline. EKG returned to baseline. The resting and stressed images were reviewed and compared in the short axis, horizontal long axis, and vertical long axis views. Review of the images showed breast attenuation affecting the quality of the images, no significant ischemia or infarction. SSS is zero. TID value 0.97. On the gated images, the left ventricle appeared to be normal size with normal contractility. Calculated ejection fraction 75%. CONCLUSION: 1. Good exercise tolerance a total of 5 minutes 15 seconds on standard Edmundo protocol, total of 7.1 METS, achieving 89% of maximum expected heart rate. 2. Appropriate heart rate and blood pressure response to exercise returned to baseline during recovery. 3. Breast attenuation affecting the quality of the images, overall there is no significant ischemia or infarction on SPECT images. 4. Normal left ventricular size with normal contractility. Calculated ejection fraction 75%. Job ID: [id number] DocumentID: [id number] Dictated Date: 10/30/2016 15:04:53 [employer] Date: 10/30/2016 15:44:24 Dictated By: BOB SCHMIDT MD
== END 2016-10-30 14:31 | disposition home or self-care (01) ==
LOC: EDUNIT# 13:23 → ER 13:27 → 4TH 15:29 → UNDOADMOB 15:29 → ENRESERV 16:00 → 4TH 16:56
PROVIDERS: ADMIT Family Medicine; ATTEND Family Medicine
DX: R07.9 Chest pain, unspecified (principal); K21.9 Gastro-esophageal reflux disease without esophagitis; J45.909 Unspecified asthma, uncomplicated; Z87.891 Personal history of nicotine dependence
CPT/HCPCS: 36415; 71010; 78452; 80053; 80061; 82150; 82550; 83690; 83735; 83874; 83880; 84484; 85025; 85379; 85610; 85730; 93005; 93017; 93041; 94760; G0378

== ENCOUNTER 2020-02-28 07:48 | Outpatient (CLI) | payer BC, MEDICARE ==
[~2020-02-28] VITALS: Ht 167 cm; Wt 77.0 kg
[~2020-02-28 07:48] MED LIST changes: +ALBU18HF2 IH
[2020-02-28] MEDS ORDERED: EPINEPHrine INJECTION 1 MG/ML AMP IM PRN (08:00)
[2020-02-28] MEDS ORDERED: diphenhydrAMINE 50 MG/ML INJ (BENADRYL) IV PRN (08:00)
[2020-02-28] MEDS ORDERED: BAMLANIVIMAB 700 MG in NS 200 ML IV ONE (08:00)
[2020-02-28 08:50] VITALS: BP 113/93
[2020-02-28 09:05] VITALS: BP 117/51
[2020-02-28 10:05] VITALS: BP 105/58
[2020-02-28 10:16] VITALS: BP 108/57
== END 2020-02-28 10:16 ==
LOC: INFUSION 07:48
PROVIDERS: ATTEND Family Medicine
DX: U07.1 COVID-19 (principal); J44.9 Chronic obstructive pulmonary disease, unspecified; Z87.891 Personal history of nicotine dependence; Z87.01 Personal history of pneumonia (recurrent); Z90.710 Acquired absence of both cervix and uterus

== ENCOUNTER 2021-06-28 08:32 | Outpatient (RCR) | payer MEDICARE | END 2021-07-06 | disposition home or self-care (01) | LOC: ONC 08:32 | PROVIDERS: ATTEND Radiology Radiation Oncology | DX: Z51.0 Encounter for antineoplastic radiation therapy (principal); C34.12 Malignant neoplasm of upper lobe, left bronchus or lung; J43.9 Emphysema, unspecified; Z87.891 Personal history of nicotine dependence; Z79.899 Other long term (current) drug therapy | CPT/HCPCS: 77293; 77300; 77301; 77334; 77338; 77470; 99204 ==

== ENCOUNTER 2021-07-25 01:00 | Outpatient (RCR) | payer MEDICARE | END 2021-08-06 | disposition home or self-care (01) | LOC: ONC 01:00 | PROVIDERS: ATTEND Radiology Radiation Oncology | DX: Z51.0 Encounter for antineoplastic radiation therapy (principal); C34.12 Malignant neoplasm of upper lobe, left bronchus or lung; E78.5 Hyperlipidemia, unspecified; K21.9 Gastro-esophageal reflux disease without esophagitis; Z87.891 Personal history of nicotine dependence; Z79.899 Other long term (current) drug therapy | CPT/HCPCS: 77336; 77370; 77373 ==

== ENCOUNTER 2021-08-29 10:34 | Outpatient (RCR) | payer MEDICARE | END 2021-09-05 | disposition home or self-care (01) | LOC: ONC 10:34 | PROVIDERS: ATTEND Radiology Radiation Oncology | DX: C34.12 Malignant neoplasm of upper lobe, left bronchus or lung (principal); K21.9 Gastro-esophageal reflux disease without esophagitis; E78.2 Mixed hyperlipidemia; Z87.891 Personal history of nicotine dependence; Z79.899 Other long term (current) drug therapy | CPT/HCPCS: 99213 ==

== ENCOUNTER → 2021-11-19 | Outpatient (CLI) | payer MEDICARE ==
--- NOTE | 2021-11-19 15:21 | Diagnostic Imaging Report ---
PROCEDURE: CT chest without contrast. TECHNIQUE: Multiple contiguous axial images were obtained through the chest without the use of intravenous contrast. Auto Exposure Controls were utilized during the CT exam to meet ALARA standards for radiation dose reduction. INDICATION: Lung cancer. Compared with outside chest CT 04/01/2021 as well as an outside metabolic CT fusion PET 04/16/2021. FINDINGS: The irregular peripheral mass in the left upper lobe itself is very difficult to definitively visualize on the CT but is believed seen on axial image 47 series 3 measuring 1.1 x 0.6 cm decreased from prior when it was about 2.1 x 1.1 cm when measured at the same level. Peripheral to the mass is presumed a postradiation pneumonitis. Correlate with history. This may partially obscure portions of the mass but it is clearly smaller and less dense. No enlarged or suspicious appearing axillary, hilar or mediastinal lymph nodes. Lungs showed features of centrilobular emphysema chronic without bronchiectasis. There is some new subpleural tree-in-bud micro-nodularity laterally in the right upper lobe seen best image 73 of 150. This is new or progressed from prior and is felt likely on an infectious/inflammatory basis but warrants a CT followup within 3-6 months. No other focal parenchymal pathology. No effusion or pneumothorax. There is a hiatal hernia chronic. No suspicious chest wall lesion, the visualized upper abdomen unremarkable. IMPRESSION: 1. Left upper lobe lung nodule smaller and less dense with presumed adjacent post radiation pneumonitis. 2. Contralateral right upper lobe tree-in-bud micro-nodularity subpleural, favored to be on an infectious/inflammatory basis but warranting followup chest CT within 3-6 months. 3. No evidence for lymphadenopathy or acute pleural pathology. Dictated by: Dictated on workstation # [id number]
== END ==
LOC: RAD FS 10:33
PROVIDERS: ATTEND Radiology Radiation Oncology
DX: C34.12 Malignant neoplasm of upper lobe, left bronchus or lung (principal)
CPT/HCPCS: 71250

== ENCOUNTER 2021-11-28 11:00 | Outpatient (RCR) | payer MEDICARE | END 2021-12-06 | disposition home or self-care (01) | LOC: ONC 11:00 | PROVIDERS: ATTEND Radiology Radiation Oncology | DX: C34.12 Malignant neoplasm of upper lobe, left bronchus or lung (principal); K21.9 Gastro-esophageal reflux disease without esophagitis; E78.2 Mixed hyperlipidemia; Z87.891 Personal history of nicotine dependence; Z79.899 Other long term (current) drug therapy ==

== ENCOUNTER → 2022-01-14 | Outpatient (CLI) | payer MEDICARE ==
--- NOTE | 2022-01-15 12:06 | Diagnostic Imaging Report ---
EXAMINATION: 3D bilateral screening mammogram with CAD. INDICATION: Screening. COMPARISON: 07/13/2015. PERSONAL HISTORY: At this time, there are no current complaints. FINDINGS: There are scattered fibroglandular densities in both breasts which could obscure a lesion. Overall, there does not appear to have been any significant change when compared to the prior exam. No primary or secondary sign of malignancy is noted. IMPRESSION: 1. There is no evidence for malignancy. 2. The patient should have her annual bilateral screening mammogram on schedule in January 2023. ACR BI-RADS Category 1: Negative. Result letter will be mailed to the patient. Note: At least 10% of breast cancer is not imaged by mammography. Dictated by: Dictated on workstation # [id number]
== END ==
LOC: RAD 10:28
PROVIDERS: ATTEND Radiology Radiation Oncology
DX: Z12.31 Encounter for screening mammogram for malignant neoplasm of breast (principal); Z12.2 Encounter for screening for malignant neoplasm of respiratory organs; C34.90 Malignant neoplasm of unspecified part of unspecified bronchus or lung
CPT/HCPCS: 77063; 77067

== ENCOUNTER → 2022-05-07 | Outpatient (CLI) | payer MEDICARE ==
--- NOTE | 2022-05-07 12:12 | Diagnostic Imaging Report ---
PROCEDURE: CT chest without contrast. TECHNIQUE: Multiple contiguous axial images were obtained through the chest without the use of intravenous contrast. Auto Exposure Controls were utilized during the CT exam to meet ALARA standards for radiation dose reduction. INDICATION: Non-small cell carcinoma of the lung. COMPARISON: Chest CT 11/19/2021. FINDINGS: Left upper lobe nodule peripherally today 1.1 x 0.6 cm, unchanged in size from prior but is more linear in its morphology, and its cephalocaudal extent is less pronounced. The peripheral opacity previously noted along its margins has coalesced into a more well-defined confluent circular rim about the treated lesion likely owing to evolving and retracting post-radiation pneumonitis and scarring. There has been no adverse interval development. The contralateral right upper lobe tree-in-bud nodularity has since resolved confirming its benignity, likely resolved inflammatory or infectious process at that site. Air trapping and centrilobular emphysema are chronic with no new lung mass. There is no axillary, hilar, or mediastinal lymphadenopathy. The aorta is nonaneurysmal. Coronary artery atherosclerosis and a small hiatal hernia are chronic. Upper abdomen shows stable appearing adrenal glands and a punctate nonobstructing upper pole stone in the left kidney, previously below the field of view. IMPRESSION: 1. The treated nodule in the left upper lobe is somewhat more linear in morphology but measures unchanged in maximal dimensions. The post-radiation changes peripheral to this mass have become more coalesced and forming a band or ring-like demarcation peripheral to the treated lesion, likely progressive scarring and retraction on a post-radiation basis. 2. Resolution of contralateral right upper lobe nodularity. Centrilobular emphysema and air trapping are chronic. No adverse development or new lesion. 3. Punctate left renal calculus noted and a small hiatal hernia. 4. Aortic and coronary atherosclerotic calcifications, chronic. Dictated by: Dictated on workstation # [id number]
== END ==
LOC: RAD FS 10:21
PROVIDERS: ATTEND Radiology Radiation Oncology
DX: C34.12 Malignant neoplasm of upper lobe, left bronchus or lung (principal); N20.0 Calculus of kidney; I70.0 Atherosclerosis of aorta; I25.10 Atherosclerotic heart disease of native coronary artery without angina pectoris
CPT/HCPCS: 71250

== ENCOUNTER 2022-05-15 10:15 | Outpatient (RCR) | payer MEDICARE | END 2022-06-06 | disposition home or self-care (01) | LOC: ONC 10:15 | PROVIDERS: ATTEND Radiology Radiation Oncology | DX: C34.12 Malignant neoplasm of upper lobe, left bronchus or lung (principal); K21.9 Gastro-esophageal reflux disease without esophagitis; E78.2 Mixed hyperlipidemia; J44.9 Chronic obstructive pulmonary disease, unspecified; Z87.891 Personal history of nicotine dependence; Z79.899 Other long term (current) drug therapy | CPT/HCPCS: 99213 ==

== ENCOUNTER 2022-09-15 13:46 | Emergency (ER) | payer MEDICARE ==
[~2022-09-15] VITALS: Ht 167.7 cm; Wt 81.6 kg
[2022-09-15] MEDS ORDERED: NS IV 1000 ML 1,000 ML IV STA (16:06)
--- NOTE | 2022-09-15 16:13 | ED General ---
General Chief Complaint: Dizziness/Syncope Stated Complaint: LIGHTHEADED | DIZZY Nursing Triage Note: PT AMB TO ED BY POV WITH C/O DIZZINESS. PT REPORTS SHE HAS BEEN DIZZY X 2 MONTHS, SEEN PCP MULTIPLE TIMES. PT REPORTS SHE HAD A TICK BITE A COUPLE OF WEEKS BEFORE DIZZINESS STARTED. PT ALSO C/O INTERMITTENT L SIDED FACIAL NUMBNESS. Source of Information: Patient Exam Limitations: No Limitations (ALIYAH HUERTAS) History of Present Illness Date Seen by Provider: Sep 15, 2022 Time Seen by Provider: 16:09 Initial Comments Patient is a 77-year-old female who presents ED with dizziness for the past 2 months. The dizziness appears to be constant but worse when she stands up. Denies this feeling as a room spinning. No hearing loss or ear ringing. She also reports left-sided headache. Pain located to the left sided head and radiation to the left side and neck. Rates pain 4 out of 10. Pain has been as high as 10 out of 10 improves with some pain medication. She states she has vomited at least 3 times over the past 2 months. 1 episodes of diarrhea. History of lung cancer currently follows Dr. Whitney. Received radiation last year and states that her cancer appears to be improving and shrinking. We will schedule a follow-up in 6 months. Decreased appetite, decreased energy levels. She reports normal urination. No known cardiac history. Denies any cough, wheezing, shortness of breath, abdominal pain, dysuria, decreased urine output. States she was bitten by a tick around a month ago. Was treated with doxycycline and Zofran. She never had a tick panel drawn. No history of coronary artery disease, stroke or blood thinners. Denies of any unilateral weakness. She does report bilateral knees wanting to give out. Currently being treated for left-sided retinopathy with injections. Denies fever, chills, body aches, chest pain, abdominal pain (ALIYAH HUERTAS) Allergies and Home Medications Allergies Coded Allergies: No Known Drug Allergies (Unverified , 10/29/16) Patient Home Medication List Home Medication List Reviewed: Yes (ALIYAH HUERTAS) Albuterol Sulfate (Ventolin Hfa) 18 Gm Hfa.aer.ad, 2 PUFF IH EVERY 4-6 HOURS PRN for SHORTNESS OF BREATH, (Reported) Entered as Reported by: KATHIA PEREZ on 10/29/16 1653 Dexamethasone (Dexamethasone) 4 Mg Tablet, 4 MG PO Q6H Prescribed by: OSCAR CAMILO on 09/15/222047 Discontinued Medications Dexamethasone (Dexamethasone) 4 Mg Tablet, 4 MG PO Q6H Prescribed by: OSCAR CAMILO on 09/15/221924 Dexamethasone (Dexamethasone) 4 Mg Tablet, 4 MG PO Q6H Prescribed by: OSCAR CAMILO on 09/15/222020 Review of Systems Review of Systems Constitutional: No chills, No diaphoresis; dizziness, malaise, weakness EENTM: No hearing loss, No ear pain, No blurred vision, No double vision Respiratory: No cough, No dyspnea on exertion Cardiovascular: No chest pain Gastrointestinal: No abdominal pain; diarrhea, nausea, vomiting Genitourinary: No decreased output, No discharge Musculoskeletal: No back pain, No joint pain Skin: No change in color, No change in hair/nails Psychiatric/Neurological: Headache; Denies Numbness (ALIYAH HUERTAS) All Other Systems Reviewed Negative Unless Noted: Yes (ALIYAH HUERTAS) Past Nwznoxl-Czrwvl-Tevjcs Hx Patient Social History Tobacco Use?: No Smoking Status: Former Smoker Use of E-Cig and/or Vaping dev: No Substance use?: No Alcohol Use?: No Pt feels they are or have been: No (ALIYAH HUERTAS) Immunizations Up To Date Influenza Vaccine Up-to-Date: Yes; Up-to-Date First/Initial COVID19 Vaccinat: X2 (ALIYAH HUERTAS) Seasonal Allergies Seasonal Allergies: No (ALIYAH HUERTAS) Past Medical History Surgery/Hospitalization HX: COPD Surgeries: Yes (CYST REMOVED) Hysterectomy, Tonsillectomy, Tubal Ligation Respiratory: Yes Asthma Currently Using CPAP: No Currently Using BIPAP: No Cardiac: No Neurological: No 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 History: Hysterectomy Genitourinary: No Gastrointestinal: Yes Gastroesophageal Reflux Musculoskeletal: Yes Arthritis Endocrine: No HEENT: No Cancer: No Psychosocial: No Integumentary: No Blood Disorders: No (ALIYAH HUERTAS) Family Medical History Congenital heart disease DAUGHTER Diabetes mellitus 19 MOTHER Myocardial infarction 19 MOTHER CAD Over 55 Years Old (ALIYAH HUERTAS) Physical Exam Vital Signs Vital Signs - First Documented 09/15/22 13:56 Temp 36.4 Pulse 74 Resp 16 B/P (MAP) 127/83 (98) Pulse Ox 95 O2 Delivery Room Air (ALFA ORDOÑEZ MD) Vital Signs Capillary Refill : Less Than 3 Seconds (ALIYAH HUERTAS) Height, Weight, BMI Height: 5'6.00" Weight: 171lbs. 8.0oz. 77.972776ng; 29.00 BMI Method:Stated General Appearance: No Apparent Distress, WD/WN Eyes: Bilateral Eye Normal Inspection, Bilateral Eye PERRL, Bilateral Eye EOMI HEENT: PERRL/EOMI, TMs Normal, Normal ENT Inspection, Pharynx Normal Neck: Full Range of Motion, Normal Inspection, Non Tender, Supple Respiratory: Chest Non Tender, Lungs Clear, Normal Breath Sounds, No Accessory Muscle Use, No Respiratory Distress Cardiovascular: Regular Rate, Rhythm, No Edema, No Gallop, No JVD Gastrointestinal: Normal Bowel Sounds, No Organomegaly, No Pulsatile Mass, Non Tender Back: Normal Inspection, No CVA Tenderness, No Vertebral Tenderness Extremity: Normal Capillary Refill, Normal Inspection, Normal Range of Motion, Non Tender, No Calf Tenderness Neurologic/Psychiatric: Alert, Oriented x3, No Motor/Sensory Deficits, Normal Mood/Affect, ream cutter II-XII Norm as Tested Skin: Normal Color, Warm/Dry (ALIYAH HUERTAS) Progress/Results/Core Measures Suspected Sepsis SIRS Temperature: Pulse: 74 Respiratory Rate: 16 Laboratory Tests 09/15/22 15:45: White Blood Count 8.0 Blood Pressure 127 /83 Mean: 98 Laboratory Tests 09/15/22 15:45: Creatinine 1.25, Platelet Count 330, Total Bilirubin 0.4 (ALIYAH HUERTAS) Results/Orders Lab Results Laboratory Tests Test 09/15/22 15:45 09/15/22 18:24 Range/Units White Blood Count 8.0 4.3-11.0 10^3/uL Red Blood Count 4.61 3.80-5.11 10^6/uL Hemoglobin 13.8 11.5-16.0 g/dL Hematocrit 42 35-52 % Mean Corpuscular Volume 90 80-99 fL Mean Corpuscular Hemoglobin 30 25-34 pg Mean Corpuscular Hemoglobin Concent 33 32-36 g/dL Red Cell Distribution Width 13.2 10.0-14.5 % Platelet Count 330 130-400 10^3/uL Mean Platelet Volume 10.1 9.0-12.2 fL Immature Granulocyte % (Auto) 0 % Neutrophils (%) (Auto) 74 42-75 % Lymphocytes (%) (Auto) 17 12-44 % Monocytes (%) (Auto) 5 0-12 % Eosinophils (%) (Auto) 2 0-10 % Basophils (%) (Auto) 1 0-10 % Neutrophils # (Auto) 5.9 1.8-7.8 10^3/uL Lymphocytes # (Auto) 1.4 1.0-4.0 10^3/uL Monocytes # (Auto) 0.4 0.0-1.0 10^3/uL Eosinophils # (Auto) 0.2 0.0-0.3 10^3/uL Basophils # (Auto) 0.1 0.0-0.1 10^3/uL Immature Granulocyte # (Auto) 0.0 0.0-0.1 10^3/uL Sodium Level 139 135-145 MMOL/L Potassium Level 3.7 3.6-5.0 MMOL/L Chloride Level 105 98-107 MMOL/L Carbon Dioxide Level 25 21-32 MMOL/L Anion Gap 9 5-14 MMOL/L Blood Urea Nitrogen 19 H 7-18 MG/DL Creatinine 1.25 0.60-1.30 MG/DL Estimat Glomerular Filtration Rate 45 BUN/Creatinine Ratio 15 Glucose Level 108 H 70-105 MG/DL Calcium Level 9.3 8.5-10.1 MG/DL Corrected Calcium 9.2 8.5-10.1 MG/DL Magnesium Level 1.9 1.6-2.4 MG/DL Total Bilirubin 0.4 0.1-1.0 MG/DL Aspartate Amino Transf (AST/SGOT) 18 5-34 U/L Alanine Aminotransferase (ALT/SGPT) 16 0-55 U/L Alkaline Phosphatase 109 40-136 U/L Total Protein 7.0 6.4-8.2 GM/DL Albumin 4.1 3.2-4.5 GM/DL Lipase 17 8-78 U/L Lyme Disease Screen IgG & IgM Ab 0.24 0.00-0.89 Index Lyme Antibody Interpretation Negative Negative Ehrlichia chaffeensis IgG Antibody <1:16 <1:16 Ehrlichia chaffeensis IgM Antibody <1:10 <1:10 Monoscreen NEGATIVE NEGATIVE Spotted Fever Group IgG Antibody <1:16 <1:16 Spotted Fever Group IgM Antibody <1:10 <1:10 [place] Antibody <1:20 Urine Color YELLOW Urine Clarity CLEAR Urine pH 5.5 5-9 Urine Specific [place] 1.010 L 1.016-1.022 Urine Protein NEGATIVE NEGATIVE Urine Glucose (UA) NEGATIVE NEGATIVE Urine Ketones NEGATIVE NEGATIVE Urine Nitrite NEGATIVE NEGATIVE Urine Bilirubin NEGATIVE NEGATIVE Urine Urobilinogen 0.2 < = 1.0 MG/DL Urine Leukocyte Esterase 2+ H NEGATIVE Urine RBC (Auto) NEGATIVE NEGATIVE Urine RBC NONE /HPF Urine WBC 5-10 H /HPF Urine Squamous Epithelial Cells NONE /HPF Urine Crystals NONE /LPF Urine Bacteria NEGATIVE /HPF Urine Casts NONE /LPF Urine Mucus NEGATIVE /LPF Urine Culture Indicated YES (ALFA ORDOÑEZ MD) Micro Results Microbiology 09/15/22 Urine Culture - Final, Complete Mixed Bacterial Prudence (ALFA ORDOÑEZ MD) My Orders Orders - ALFA ORDOÑEZ MD Ekg Tracing (09/15/22 14:13) Monitor-Rhythm Ecg Trace Only (09/15/22 14:13) (ALFA ORDOÑEZ MD) Vital Signs/I&O 09/15/22 09/15/22 09/15/22 13:56 16:50 19:58 Temp 36.4 Pulse 74 70 68 72 75 Resp 16 B/P (MAP) 127/83 (98) 133/65 (87) 129/71 121/42 (68) 104/71 (82) Pulse Ox 95 94 O2 Delivery Room Air Room Air (ALFA ORDOÑEZ MD) Vital Signs/I&O Capillary Refill : Less Than 3 Seconds (ALIYAH HUERTAS) Blood Pressure Mean: 98 ECG Comment Sinus rhythm with short LA interval, nonspecific T wave abnormality, 76 bpm, QRS duration 80 MS, QTc 383 MS. (ALIYAH HUERTAS) Departure Communication (PCP) Patient is a 77-year-old female who presents ED with family for dizziness, life sided headache episodes of vomiting over the past 2 months. Has seen her primary care physician at least 5 times. States she had a negative CT scan a few months ago. Was treated prophylactically for tickborne illness about 1 month ago as she reported a tick bite but did not develop a rash. Patient was treated last year for lung cancer. She reports radiation preformed by Dr. Whitney. She states she still does have the cancer but it is much smaller. She had a CT scan of her chest May 07, 2022 that showed a similar size nodule left upper lobe with no increasing size. Due to her current complaint CBC, CMP, EKG, CT scan of the head, chest x-ray, urinalysis was ordered. CBC, CMP grossly unremarkable. EKG showed normal sinus rhythm. Chest x-ray shows stable Left upper lobe cavitary lesion. No evidence of pneumonia. She is afebrile with stable vital signs. Urinalysis without strong evidence of infection. She has no urinary symptoms. No current chest pain, abdominal pain. She had a slight decrease in her systolic from 133-104 from lying to standing. She denied of any dizziness. She was started on a liter of fluid at that time. CT scan of the head showed Abnormal area of decreased density in the posterior fossa on left. Patient was discussed with Dr. Ho oncologist on-call. She recommended MRI for further evaluation and to follow-up in the clinic in the next 1 to 2 days. I was able to get an MRI before they left for the afternoon. MRI was obtained s hows Large intra-axial mass within the left cerebellum with adjacent vasogenic edema and distortion of the 4th ventricle. There additionally are small enhancing lesions within the left frontal lobe and also a questionable 3rd lesion in the right cerebellum. Multiplicity of lesions suggest metastatic disease. No current findings of ischemia or hemorrhage. There is no hydrocephalus. Results were discussed with Dr. Ho. Recommend starting 4 mg Decadron every 6 hours. Recommend following up with Dr. Whitney in the morning and to follow-up with her in the office on Thursday. Dr. Ho office will contact patient. Did not recommended admission at this time. Patient with a stable gait. She states she felt comfortable going home. Did add tick panel due to the tick bite 1 month ago. Concerned that her symptoms are secondary to metastasis to the brain. Dr. Ho did not recommend CT scan chest abdomen and pelvis at this time (ALIYAH HUERTAS) Impression Primary Impression: Brain lesion Additional Impression: Dizziness Disposition: 01 HOME, SELF-CARE Condition: Stable Departure-Patient Inst. Decision time for Depature: 19:23 (ALIYAH HUERTAS) Referrals: PRUDENCIO WHITNEY MD, CHARLES J MD (PCP) Primary Care Physician Patient Instructions: Brain Tumor, Adult (DC) Add. Discharge Instructions: Need to follow-up with Dr. Whitney tomorrow. Call their office. You will be following up with Dr. Ho on Thursday. Their office number is [phone] All discharge instructions reviewed with patient and/or family. Voiced under standing. Scripts Dexamethasone (Dexamethasone) 4 Mg Tablet 4 MG PO Q6H, #20 TAB Prov: ALIYAH HUERTAS 09/15/22 ATTENDING PHYSICIAN NOTE: I was physically present as attending physician in the emergency department during the care of this patient, but I was not directly involved in the decision making or delivery of care for this patient. (ALFA ORDOÑEZ MD) ALIYAH HUERTAS Sep 15, 2022 16:12 ALFA ORDOÑEZ MD Sep 17, 2022 04:40
[2022-09-15] MEDS ORDERED: KETOROLAC 30 MG/ML VIAL IVP ONE (16:15)
[2022-09-15 16:16] LABS: BASOPHILS # (AUTO) 0.1 10^3/uL (0.0-0.1); BASOPHILS % (AUTO) 1 % (0-10); EOSINOPHILS # (AUTO) 0.2 10^3/uL (0.0-0.3); EOSINOPHILS % (AUTO) 2 % (0-10); HEMATOCRIT 42 % (35-52); HEMOGLOBIN 13.8 g/dL (11.5-16.0); LYMPHOCYTES # (AUTO) 1.4 10^3/uL (1.0-4.0); LYMPHOCYTES % (AUTO) 17 % (12-44); MEAN CORPUSCULAR HEMOGLOBIN 30 pg (25-34); MEAN CORPUSCULAR HGB CONC 33 g/dL (32-36); MEAN CORPUSCULAR VOLUME 90 fL (80-99); MEAN PLATELET VOLUME 10.1 fL (9.0-12.2); MONOCYTES # (AUTO) 0.4 10^3/uL (0.0-1.0); MONOCYTES % (AUTO) 5 % (0-12); NEUTROPHILS # (AUTO) 5.9 10^3/uL (1.8-7.8); NEUTROPHILS % (AUTO) 74 % (42-75); PLATELET COUNT 330 10^3/uL (130-400)
[2022-09-15 16:22] LABS: ALBUMIN 4.1 GM/DL (3.2-4.5); POTASSIUM 3.7 MMOL/L (3.6-5.0)
[2022-09-15 16:23] LABS: CALCIUM 9.3 MG/DL (8.5-10.1)
--- NOTE | 2022-09-15 16:25 | Diagnostic Imaging Report ---
INDICATION: Dizziness and facial paresthesia. EXAMINATION: Portable chest, 4:05 p.m. FINDINGS: There is a thin-walled cavitary lesion in the left upper lobe that appears unchanged from a CT done on 05/07/2022. There are no infiltrates, effusions, or pneumothoraces. IMPRESSION: Stable cavitary lesion in the left upper lobe. Dictated by: Dictated on workstation # [id number]
[2022-09-15 16:26] LABS: BILIRUBIN,TOTAL 0.4 MG/DL (0.1-1.0)
[2022-09-15 16:28] LABS: CREATININE SERUM 1.25 MG/DL (0.60-1.30)
[2022-09-15 16:31] LABS: MAGNESIUM 1.9 MG/DL (1.6-2.4)
--- NOTE | 2022-09-15 16:36 | Diagnostic Imaging Report ---
PROCEDURE: CT head without contrast. TECHNIQUE: Multiple contiguous axial images were obtained through the brain without the use of intravenous contrast. Auto Exposure Controls were utilized during the CT exam to meet ALARA standards for radiation dose reduction. INDICATION: Left-sided head pain, dizziness. FINDINGS: There is ill-defined area of decreased density in the posterior fossa involving the cerebellar peduncle and medial portion of the left cerebellar hemisphere. There are no hemorrhages. There are no extra-axial fluid collections. The ventricles are not dilated. IMPRESSION: Abnormal area of decreased density in the posterior fossa on left, as described. Differential considerations would include neoplasm. Recommend further evaluation with contrast MRI of the brain. Dictated by: Dictated on workstation # [id number]
[2022-09-15 16:50] VITALS: BP_SYST 104; BP_SYST 121; BP_SYST 133; BP_DIAS 42; BP_DIAS 65; BP_DIAS 71
[2022-09-15] MEDS ORDERED: GADOTERATE 0.5 MMOL/ML (CLARISCAN) 15 ML VIAL IV ONE (17:30)
--- NOTE | 2022-09-15 18:05 | Diagnostic Imaging Report ---
PROCEDURE: MR imaging of the brain with and without contrast. TECHNIQUE: Multiplanar, multisequence MR imaging of the brain was performed with and without contrast. INDICATION: Posterior fossa brain lesion on prior CT head. COMPARISON: CT head from earlier in the same day. FINDINGS: There is a 2.1 x 2.5 x 2.2 cm intra-axial mass within the left cerebellum just lateral to the cerebellar vermis. There also appears to be a tiny cortically based enhancing nodule within the left frontal lobe which is best demonstrated on sagittal postcontrast T1 imaging on image 5 of series 10. There is a questionable additional lesion in the right cerebellum measuring approximately 3 mm on image 12 of series 11. The multiplicity of lesions would be most suggestive of metastatic disease which is also the most common posterior fossa neoplasm in a patient of this age. There are no findings of acute ischemia. There is no acute hemorrhage. The dominant lesion in the left cerebellum has extensive surrounding vasogenic edema and results in marked distortion of the 4th ventricle though there is no current lateral or 3rd ventricular hydrocephalus. The pituitary gland and the pineal region are normal. There is normal alignment of the craniocervical junction. The mastoid air cells are clear. The paranasal sinuses are clear. Orbital contents demonstrate no acute process. The major expected vascular flow voids are maintained. IMPRESSION: 1. Large intra-axial mass within the left cerebellum with adjacent vasogenic edema and distortion of the 4th ventricle. There additionally are small enhancing lesions within the left frontal lobe and also a questionable 3rd lesion in the right cerebellum. Multiplicity of lesions suggest metastatic disease. CT chest, abdomen and pelvis could be considered to evaluate for a primary. 2. No current findings of ischemia or hemorrhage. There is no hydrocephalus. Dictated by: Dictated on workstation # [id number]
[2022-09-15 18:33] LABS: BILIRUBIN,URINE NEGATIVE (NEGATIVE); CLARITY,URINE CLEAR; COLOR,URINE YELLOW; GLUCOSE, URINE (UA) NEGATIVE (NEGATIVE); KETONES,URINE NEGATIVE (NEGATIVE); LEUKOCYTE ESTERASE ,URINE 2+ (NEGATIVE); NITRITE,URINE NEGATIVE (NEGATIVE); PH,URINE 5.5 (5-9); PROTEIN,URINE NEGATIVE (NEGATIVE)
[2022-09-15 18:49] LABS: BACTERIA,URINE NEGATIVE /HPF
[2022-09-15] MEDS ORDERED: DEXA4TAB PO ×3 (19:25→20:48)
[2022-09-15 19:58] VITALS: BP 129/71
== END 2022-09-15 19:58 | disposition home or self-care (01) ==
LOC: EDUNIT# 13:46 → ER 13:47
DX: G93.9 Disorder of brain, unspecified (principal); R42 Dizziness and giddiness; R91.1 Solitary pulmonary nodule; C34.90 Malignant neoplasm of unspecified part of unspecified bronchus or lung; H35.00 Unspecified background retinopathy; Z92.3 Personal history of irradiation; Z79.899 Other long term (current) drug therapy; Z87.891 Personal history of nicotine dependence
CPT/HCPCS: 36415; 70450; 70553; 71045; 80053; 81000; 83690; 83735; 85025; 86308; 86618; 86666; 86668; 86757; 87088; 93005; 93041

== ENCOUNTER → 2022-09-22 | Outpatient (CLI) | payer MEDICARE ==
[~2022-09-22] MED LIST changes: +CATHETER FLUSH 10 ML SYR IV PRN; +DEXA4TAB PO; +HOLD METFORMIN - RECEIVED CONTRAST 20 ML VIAL IV SCH; +IOHEXOL 350 MG/ML 100 ML (OMNIPAQUE 350) VIAL IV ONE; +NS 100 ML (IVPB) BAG IV ONE
--- NOTE | 2022-09-22 16:24 | Diagnostic Imaging Report ---
PROCEDURE: CT chest, abdomen, and pelvis with contrast. TECHNIQUE: Multiple contiguous axial images were obtained through the chest, abdomen, and pelvis after the administration of intravenous contrast. Auto Exposure Controls were utilized during the CT exam to meet ALARA standards for radiation dose reduction. INDICATION: Malignant neoplasm of the lung, follow-up. CORRELATION is made with prior CT from 05/07/2022. CT CHEST: No axillary lymphadenopathy is detected. No mediastinal or hilar lymphadenopathy is detected. No pericardial or pleural fluid is identified. Centrilobular emphysematous changes are noted. The peripheral nodule with surrounding post-therapeutic fibrotic changes in the left upper lobe appear similar to prior examination from 05/07/2022. There is some atelectasis or scarring in the right lower lobe posteriorly. CT ABDOMEN AND PELVIS: No liver mass is identified. The gallbladder is unremarkable. There is no biliary ductal dilatation. The pancreas and spleen are unremarkable. No adrenal mass is detected. Calcifications within both kidneys are noted which could be a renovascular versus nonobstructing nephrolithiasis. There is no hydronephrosis. Aorta is calcified but nonaneurysmal. No central, retroperitoneal or mesenteric lymphadenopathy is seen. Bowel loops are normal caliber. There is diverticulosis of the colon but no evidence of acute diverticulitis. There is no ascites. Bladder is decompressed. The uterus is surgically absent. No definite pelvic lymphadenopathy is identified. Bony structures are nonacute. IMPRESSION: 1. Stable post-therapeutic changes in the left upper lobe when compared with exam from 05/07/2022. No thoracic, abdominal or pelvic lymphadenopathy is identified. 2. Uncomplicated diverticulosis. Dictated by: Dictated on workstation # [id number]
== END ==
LOC: RAD FS 10:39
PROVIDERS: ATTEND Internal Medicine Hematology & Oncology
DX: C34.90 Malignant neoplasm of unspecified part of unspecified bronchus or lung (principal); K57.30 Diverticulosis of large intestine without perforation or abscess without bleeding; Z98.890 Other specified postprocedural states
CPT/HCPCS: 71260; 74177; Q9967

== ENCOUNTER → 2022-10-06 | Outpatient (RCR) | payer MEDICARE ==
[~2022-10-06] MED LIST changes: -CATHETER FLUSH 10 ML SYR IV PRN; -HOLD METFORMIN - RECEIVED CONTRAST 20 ML VIAL IV SCH; -IOHEXOL 350 MG/ML 100 ML (OMNIPAQUE 350) VIAL IV ONE; -NS 100 ML (IVPB) BAG IV ONE
== END | disposition home or self-care (01) ==
LOC: ONC 09-17 08:02
PROVIDERS: ATTEND Internal Medicine Hematology & Oncology
DX: Z51.0 Encounter for antineoplastic radiation therapy (principal); C34.90 Malignant neoplasm of unspecified part of unspecified bronchus or lung; C79.31 Secondary malignant neoplasm of brain; K21.9 Gastro-esophageal reflux disease without esophagitis; E78.2 Mixed hyperlipidemia
CPT/HCPCS: 77300; 77301; 77334; 77338; 77370; 77373; 77470; 82378; 94761

== ENCOUNTER 2022-10-21 07:32 | Outpatient (RCR) | payer MEDICARE ==
[~2022-10-21] VITALS: Ht 165.1 cm; Wt 80.2 kg
[~2022-10-21 07:32] MED LIST changes: +HEParin (CENTRAL IV FLUSH) 500 UNIT/5 ML SYR IV PRN; +NS IV 1000 ML (CANCER CTR) IV SCH; +PEMBROLIZUMAB 200 MG in NS (IVPB) 50 ML 50 ML IV SCH
[2022-10-21 09:24] LABS: BASOPHILS % (AUTO) 0 % (0-10); EOSINOPHILS % (AUTO) 1 % (0-10); HEMATOCRIT 37 % (35-52); HEMOGLOBIN 11.7 g/dL (11.5-16.0); LYMPHOCYTES # (AUTO) 0.8 10^3/uL (1.0-4.0); LYMPHOCYTES % (AUTO) 16 % (12-44); MEAN CORPUSCULAR HEMOGLOBIN 30 pg (25-34); MEAN CORPUSCULAR HGB CONC 32 g/dL (32-36); MEAN CORPUSCULAR VOLUME 92 fL (80-99); MEAN PLATELET VOLUME 9.2 fL (9.0-12.2); MONOCYTES # (AUTO) 0.4 10^3/uL (0.0-1.0); MONOCYTES % (AUTO) 8 % (0-12); NEUTROPHILS # (AUTO) 3.9 10^3/uL (1.8-7.8); NEUTROPHILS % (AUTO) 75 % (42-75); PLATELET COUNT 257 10^3/uL (130-400); WHITE BLOOD COUNT 5.2 10^3/uL (4.3-11.0)
[2022-10-21 09:35] VITALS: BP 102/59
[2022-10-21 09:44] LABS: ALBUMIN 3.4 GM/DL (3.2-4.5); BILIRUBIN,TOTAL 0.7 MG/DL (0.1-1.0); CALCIUM 8.8 MG/DL (8.5-10.1); CREATININE SERUM 1.2 MG/DL (0.60-1.30); TOTAL PROTEIN 5.9 GM/DL (6.4-8.2)
[2022-10-23] MEDS ORDERED: THIA100T68 PO (09:04)
[2022-10-23] MEDS ORDERED: CYAN-23 PO (09:04)
[2022-10-23] MEDS ORDERED: PANT40TA52 PO (09:04)
[2022-10-23] MEDS ORDERED: MV-M1TAB57 PO (09:04)
[2022-10-23] MEDS ORDERED: SERT-414 PO (09:04)
== END 2022-11-06 | disposition home or self-care (01) ==
LOC: ONC 07:32
PROVIDERS: ATTEND Internal Medicine Hematology & Oncology
DX: Z51.0 Encounter for antineoplastic radiation therapy (principal); Z51.11 Encounter for antineoplastic chemotherapy; C34.90 Malignant neoplasm of unspecified part of unspecified bronchus or lung
CPT/HCPCS: 77336; G0463; 36415; 80053; 85025; 96360; 96413; 99214

== ENCOUNTER 2022-10-22 05:27 | Outpatient (CLI) | payer MEDICARE ==
[~2022-10-22] VITALS: Ht 165.1 cm; Wt 81.2 kg
[~2022-10-22 05:27] MED LIST changes: -HEParin (CENTRAL IV FLUSH) 500 UNIT/5 ML SYR IV PRN; -NS IV 1000 ML (CANCER CTR) IV SCH; -PEMBROLIZUMAB 200 MG in NS (IVPB) 50 ML 50 ML IV SCH
[2022-10-23] MEDS ORDERED: PANT40TA52 PO (09:04)
[2022-10-23] MEDS ORDERED: SERT-414 PO (09:04)
[2022-10-23] MEDS ORDERED: THIA100T68 PO (09:04)
[2022-10-23] MEDS ORDERED: CYAN-23 PO (09:04)
[2022-10-23] MEDS ORDERED: MV-M1TAB57 PO (09:04)
== END 2022-10-23 09:21 | disposition home or self-care (01) ==
LOC: PREOP 05:27
PROVIDERS: ATTEND Surgery
DX: Z01.818 Encounter for other preprocedural examination (principal)

== ENCOUNTER 2022-10-29 06:32 | Day surgery (SDC) | payer MEDICARE ==
[~2022-10-29] VITALS: Ht 165.1 cm; Wt 81.2 kg
[2022-10-29] VITALS (7 sets, daily range): BP systolic 99–125; BP diastolic 41–71
[~2022-10-29 06:32] MED LIST changes: +CYAN-23 PO; +MV-M1TAB57 PO; +PANT40TA52 PO; +SERT-414 PO; +THIA100T68 PO
[2022-10-29] MEDS ORDERED: 0.9% SODIUM CHLORIDE PF INJ 20 ML VIAL ONE (07:11)
[2022-10-29] MEDS ORDERED: LIDOCAINE 1% w/EPI 1:100,000 20 ML VIAL ONE (07:11)
[2022-10-29] MEDS ORDERED: HEParin (CENTRAL IV FLUSH) 500 UNIT/5 ML SYR ONE (07:12)
[2022-10-29] MEDS ORDERED: NS (IVPB) 50 ML 50 ML ONE (07:38)
[2022-10-29] MEDS ORDERED: ceFAZolin INJECTION 2,000 MG ONE (07:38)
--- NOTE | 2022-10-29 07:44 | Progress Note-Pre Operative ---
Pre-Operative Progress Note Date H&P Reviewed: Oct 29, 2022 Time H&P Reviewed: 07:37 History & Physical: H&P Reviewed, Patient Examed, No changes noted Pre-Operative Diagnosis: lung cancer HOLLIE SEVILLA DO Oct 29, 2022 07:44
[2022-10-29] MEDS ORDERED: ceFAZolin INJECTION 2,000 MG in NS (IVPB) 50 ML 50 ML IV ONE (07:45)
[2022-10-29] MEDS ORDERED: LACTATED RINGERS 1,000 ML 1,000 ML IV PRN (07:45)
--- NOTE | 2022-10-29 08:33 | Anesthesia-General Post-Op ---
MAC Patient Condition Mental Status/LOC: Same as Preop Cardiovascular: Satisfactory Nausea/Vomiting: Absent Respiratory: Satisfactory Pain: Controlled Complications: Absent Post Op Complications Complications None Follow Up Care/Instructions Patient Instructions None needed. Anesthesiology Discharge Order Discharge Order Patient is doing well, no complaints, stable vital signs, no apparent adverse anesthesia problems. No complications reported per nursing. MARKO BRITO CRNA Oct 29, 2022 08:33
--- NOTE | 2022-10-29 08:33 | Progress Note-Post Operative ---
Post-Operative Progess Note Surgeon (s)/Dough Puncher (s) Surgeon HOLLIE SEVILLA DO Dough Puncher: na Pre-Operative Diagnosis lung cancer Post-Operative Diagnosis same Procedure & Operative Findings Date of Procedure 10/29/22 Procedure Performed/Findings PROCEDURE: Right internal jugular port placement using ultrasound guidance. COMPLICATIONS: None. INDICATIONS: The patient is a 77 year old female with lung cancer. Patient understands the risks and benefits of port placement and wished to proceed with the procedure. Consent was signed on the chart. PROCEDURE: The patient was taken to the operating suite, was prepped and draped in the sterile fashion. A surgical pause was performed. Ultrasound was used to locate the internal jugular vein. Once located anesthetic was infiltrated above it. Using micro-access kit, the right internal vein was accessed. Dark nonpulsatile blood was withdrawn. The wire was inserted. Fluoroscopy assured proper placement. The needle was removed. The micro-access dilator was advanced over the wire and the wire was removed. The regular wire was inserted and fluoroscopy assured proper placement. The wire was then secured. Local anesthetic was used to anesthetize from the neck for tunneling down to the right chest and for pocket creation. A 15 blade scalpel was used to make an incision over the right chest. Cautery was used to dissect down to the pectoral fascia. A pocket was created with blunt dissection. The dilator sheath was then advanced over the wire under fluoroscopy and the dilator and wire were removed. The Groshong catheter was inserted through the sheath and the sheath was then removed. The Groshong wire was removed. The catheter was then tunneled to the right chest pocket. Fluoroscopy was used to cut to length and this was then attached to the port which was then placed within the pocket. The port was then accessed without difficulty. It was then flushed with saline and then heparin. The subcutaneous tissues were then reapproximated using 3-0 Vicryl. The areas were then washed and dried. Skin Affix was placed over incision. The insertion point of the neck Skin Affix was placed over the incision. The patient tolerated the procedure well without complication and was taken to recovery room in stable condition. Chest x-ray is pending. Anesthesia Type mac c local Estimated Blood Loss Estimated blood loss (mL): minimal Specimens/Packing Specimens Removed none HOLLIE SEVILLA DO Oct 29, 2022 08:32
--- NOTE | 2022-10-29 08:38 | Discharge Inst-Simple/Standard ---
Discharge Inst-Standard Patient Instructions/Follow Up Plan of Care/Instructions/FU: 2 weeks Poonam Ice pack on 15 min and off 30 min for first 48 hours to reduce swelling and discomfort. Activity as Tolerated: No Discharge Diet: Regular Diet Other Inst to Patient Follow up Appt: Make appointment for 2 week. Instructions: No lifting greater than 10 pounds. No strenuous activity. May shower in 24 hours, no tub bath or soaking. Use incentive spirometer at home as directed. No Smoking Skin/Wound Care: You have special glue over your incision that will fall off on it's own. Ice pack on 15 min and off 30 min for first 48 hours to reduce swelling and discomfort. Symptoms to Report: Appetite Changes, Extremity Discoloration, Numbness/Tingling, Swelling Increased, Bleeding Excessive, Eyesight Changes, Pain Increased, Urine Color Change, Constipation(Persistent), Fever over 101 degree F, Pain/Pressure in chest, Urinating Difficulty, Cough Up/Vomit Blood, Heart Beat Irreg/Pounding, Pain/Pressure in jaw, Vaginal Bleeding Increase, Cramps in feet or legs, Lightheadedness, Pain/Pressure in shoulder, Diarrhea(Persistent), Memory Changes Suddenly, Questions/Concerns, Weight gain consecutive days, Dizziness/Fainting, Nausea/Vomiting, Shortness of Breath, Weight gain over 2 pounds If questions or concerns contact your physician Or seek help at emergency department. HOLLIE SEVILLA DO Oct 29, 2022 08:38
[2022-10-29] MEDS ORDERED: LIDOCAINE 1% w/EPI 1:100,000 20 ML VIAL INJ ONE (08:59)
--- NOTE | 2022-10-29 08:59 | Diagnostic Imaging Report ---
INDICATION: Port-A-Cath placement Frontal chest obtained at 8:53 a.m. compared to 09/15/2022. Heart and mediastinal silhouette are normal in appearance. There is a Port-A-Cath over the right chest with tip overlying the upper SVC. There is no pneumothorax or pleural fluid. Left upper lobe density appears stable compared to the prior study. There is underlying hyperinflation compatible with COPD. IMPRESSION: Stable left upper lobe lesion. New Port-A-Cath in place as above with no pneumothorax or pleural fluid following device placement. Underlying COPD changes. Dictated by: Dictated on workstation # [id number]
[2022-10-29] MEDS ORDERED: 0.9% SODIUM CHLORIDE PF INJ 20 ML VIAL IV ONE (09:01)
[2022-10-29] MEDS ORDERED: HEParin (CENTRAL IV FLUSH) 500 UNIT/5 ML SYR IV ONE (09:02)
== END 2022-10-29 09:30 | disposition home or self-care (01) ==
LOC: SDC 06:32
PROVIDERS: ATTEND Surgery
DX: C34.90 Malignant neoplasm of unspecified part of unspecified bronchus or lung (principal); I87.2 Venous insufficiency (chronic) (peripheral); C79.31 Secondary malignant neoplasm of brain; E66.01 Morbid (severe) obesity due to excess calories; J44.9 Chronic obstructive pulmonary disease, unspecified; Z68.29 Body mass index [BMI] 29.0-29.9, adult
CPT/HCPCS: 36561; 71045; 76000; 87081; C1788

== ENCOUNTER → 2022-11-07 | Outpatient (CLI) | payer MEDICARE ==
[~2022-11-07] MED LIST changes: +GADOTERATE 0.5 MMOL/ML (CLARISCAN) 15 ML VIAL IV ONE; +HOLD METFORMIN - RECEIVED CONTRAST 20 ML VIAL IV SCH; +IOHEXOL 350 MG/ML 100 ML (OMNIPAQUE 350) VIAL IV ONE; +NS 100 ML (IVPB) BAG IV ONE
--- NOTE | 2022-11-07 16:08 | Diagnostic Imaging Report ---
PROCEDURE: MR imaging of the brain with and without contrast. TECHNIQUE: Multiplanar, multisequence MR imaging of the brain was performed with and without contrast. INDICATION: Metastatic brain cancer COMPARISON: Brain MRI on 09/15/2022. FINDINGS: Decreased size of the ring-enhancing mass within the left cerebellar hemisphere now measuring 0.9 x 0.9 cm, previously 2.1 x 2.5 cm. Unchanged 0.3 cm questionable region of enhancement within the right cerebral hemisphere (image 6 series 8). Previously noted lesion within the left frontal lobe has resolved. No new lesions identified. Significantly decreased edema within the cerebellum. No acute infarct. No acute or chronic hemorrhage. The ventricles and cortical sulci are normal. There is decreased mass effect on the 4th ventricle. No marrow replacing process within the calvarium. The paranasal sinuses and mastoids are clear. IMPRESSION: Significantly decreased size of the left cerebellar lesion now measuring 0.9 x 0.9 cm, previously 2.1 x 2.5 cm. Significantly decreased associated mass effect and edema within the cerebellum. Resolution of the previously noted left frontal lobe lesion. Unchanged questionable 3 mm enhancing right cerebellum. Dictated by: Dictated on workstation # [id number]
--- NOTE | 2022-11-07 16:55 | Diagnostic Imaging Report ---
PROCEDURE: CT chest, abdomen, and pelvis with contrast. TECHNIQUE: Multiple contiguous axial images were obtained through the chest, abdomen, and pelvis after the administration of intravenous contrast. Auto Exposure Controls were utilized during the CT exam to meet ALARA standards for radiation dose reduction. INDICATION: Ligament neoplasm of lung. COMPARISON: 09/22/2022 CT CHEST: There is extensive background centrilobular emphysema involving primarily the upper lobes. The ring-shaped mass in the periphery of left upper lobe at the level of aortic arch now measures approximately 3.4 x 2.8 cm which is unchanged. Prominent interstitial markings and reticular nodular densities are seen in the subpleural aspect of the right lower lobe. This includes what appears to be a new nodule in the right lung base adjacent to the dome of the diaphragm reaching 0.7 cm in maximum diameter. There has been increase in atelectasis and/or scarring in the right posterior costophrenic sulcus. No pathologically enlarged adenopathy is identified. Coronary artery calcifications are noted. IMPRESSION: No change in the irregular ring-shaped lesion in the periphery left upper lobe. There has been development of new 0.7 cm right basilar pulmonary nodule. This could represent area of focal inflammation, developing scar or metastasis. Short-term CT followup and possible PET imaging may be of use. CT ABDOMEN AND PELVIS: No focal hepatic, gallbladder, pancreatic, adrenal gland or splenic abnormality is seen. Kidneys are stable and unremarkable. There is no hydronephrosis. There is mild atherosclerotic calcification within the abdomen. There is no evidence of free fluid. No pathologically enlarged adenopathy or new mass is seen. There is no evidence of organized fluid collection or focal inflammation. There is persistent sclerosis in the right sacrum. IMPRESSION: Stable CT abdomen and pelvis without evidence of acute abnormality or metastatic disease. Dictated by: Dictated on workstation # [id number]
== END ==
LOC: RAD 13:41
PROVIDERS: ATTEND Internal Medicine Hematology & Oncology
DX: C34.90 Malignant neoplasm of unspecified part of unspecified bronchus or lung (principal); C79.31 Secondary malignant neoplasm of brain
CPT/HCPCS: 70553; 71260; 74177

== ENCOUNTER 2022-12-24 05:43 | Outpatient (CLI) | payer MEDICARE ==
[~2022-12-24] VITALS: Ht 165 cm; Wt 79.3 kg
[~2022-12-24 05:43] MED LIST changes: -GADOTERATE 0.5 MMOL/ML (CLARISCAN) 15 ML VIAL IV ONE; -HOLD METFORMIN - RECEIVED CONTRAST 20 ML VIAL IV SCH; -IOHEXOL 350 MG/ML 100 ML (OMNIPAQUE 350) VIAL IV ONE; -NS 100 ML (IVPB) BAG IV ONE
[2022-12-24] MEDS ORDERED: FLUT1BLS3 IH (10:12)
== END 2022-12-24 12:15 | disposition home or self-care (01) ==
LOC: PREOP 05:43
PROVIDERS: ATTEND Surgery
DX: Z01.818 Encounter for other preprocedural examination (principal)

== ENCOUNTER 2022-12-25 08:29 | Outpatient (RCR) | payer MEDICARE ==
[~2022-12-25 08:29] MED LIST changes: +FLUT1BLS3 IH; +HEParin (CENTRAL IV FLUSH) 500 UNIT/5 ML SYR IV PRN; +NS IV 1000 ML (CANCER CTR) IV SCH; +PEMBROLIZUMAB 200 MG in NS (IVPB) 50 ML 50 ML IV SCH
[2022-12-25 09:59] LABS: BASOPHILS # (AUTO) 0.1 10^3/uL (0.0-0.1); BASOPHILS % (AUTO) 1 % (0-10); EOSINOPHILS # (AUTO) 0.4 10^3/uL (0.0-0.3); EOSINOPHILS % (AUTO) 5 % (0-10); HEMATOCRIT 32 % (35-52); HEMOGLOBIN 10.4 g/dL (11.5-16.0); LYMPHOCYTES # (AUTO) 0.9 10^3/uL (1.0-4.0); LYMPHOCYTES % (AUTO) 12 % (12-44); MEAN CORPUSCULAR HEMOGLOBIN 29 pg (25-34); MEAN CORPUSCULAR HGB CONC 32 g/dL (32-36); MEAN CORPUSCULAR VOLUME 89 fL (80-99); MEAN PLATELET VOLUME 9.1 fL (9.0-12.2); MONOCYTES # (AUTO) 0.5 10^3/uL (0.0-1.0); MONOCYTES % (AUTO) 6 % (0-12); NEUTROPHILS # (AUTO) 5.9 10^3/uL (1.8-7.8); NEUTROPHILS % (AUTO) 75 % (42-75); PLATELET COUNT 378 10^3/uL (130-400); WHITE BLOOD COUNT 7.9 10^3/uL (4.3-11.0)
[2022-12-25 10:16] LABS: ALBUMIN 3.1 GM/DL (3.2-4.5); BILIRUBIN,TOTAL 0.5 MG/DL (0.1-1.0); CALCIUM 8.2 MG/DL (8.5-10.1); CREATININE SERUM 0.84 MG/DL (0.60-1.30); POTASSIUM 3.6 MMOL/L (3.6-5.0); TOTAL PROTEIN 5.6 GM/DL (6.4-8.2)
[2022-12-25 10:49] VITALS: BP 109/64
== END 2023-01-06 | disposition home or self-care (01) ==
LOC: ONC 08:29
PROVIDERS: ATTEND Internal Medicine Hematology & Oncology
DX: Z51.11 Encounter for antineoplastic chemotherapy (principal); Z45.2 Encounter for adjustment and management of vascular access device; C34.90 Malignant neoplasm of unspecified part of unspecified bronchus or lung; C79.31 Secondary malignant neoplasm of brain; E78.2 Mixed hyperlipidemia; Z87.891 Personal history of nicotine dependence; Z83.3 Family history of diabetes mellitus
CPT/HCPCS: 80053; 82378; 83540; 83550; 84443; 85025; 96413; G0463; 36591; 99214

== ENCOUNTER → 2022-12-29 | Outpatient (CLI) | payer MEDICARE ==
[~2022-12-29] MED LIST changes: -HEParin (CENTRAL IV FLUSH) 500 UNIT/5 ML SYR IV PRN; -NS IV 1000 ML (CANCER CTR) IV SCH; -PEMBROLIZUMAB 200 MG in NS (IVPB) 50 ML 50 ML IV SCH
== END ==
LOC: CARD 09:15
PROVIDERS: ATTEND Internal Medicine Cardiovascular Disease
DX: I07.1 Rheumatic tricuspid insufficiency (principal); I10 Essential (primary) hypertension; I25.10 Atherosclerotic heart disease of native coronary artery without angina pectoris
CPT/HCPCS: 93306

== ENCOUNTER 2022-12-30 11:17 | Day surgery (SDC) | payer MEDICARE ==
[~2022-12-30] VITALS: Ht 165 cm; Wt 78.0 kg
[2022-12-30] MEDS ORDERED: LACTATED RINGERS 1,000 ML 1,000 ML IV STA (11:22)
[2022-12-30] MEDS ORDERED: HURRICAINE EXT TUBE (BENZOCAINE) XX PRN (11:30)
--- NOTE | 2022-12-30 11:50 | Progress Note-Pre Operative ---
Pre-Operative Progress Note Date H&P Reviewed: Dec 30, 2022 Time H&P Reviewed: 11:50 History & Physical: H&P Reviewed, Patient Examed, No changes noted Pre-Operative Diagnosis: iron def anemia HOLLIE SEVILLA DO Dec 30, 2022 11:50
[2022-12-30 13:00] VITALS: BP 130/66
[2022-12-30] MEDS ORDERED: KETAMINE 50 MG/5 ML SYRINGE ONE (13:19)
[2022-12-30 13:45] VITALS: BP 104/54
[2022-12-30 13:50] VITALS: BP 115/58
--- NOTE | 2022-12-30 13:50 | Progress Note-Post Operative ---
Post-Operative Progess Note Surgeon (s)/Aircraft Landing Gear Inspector (s) Surgeon HOLLIE SEVILLA DO Aircraft Landing Gear Inspector: n/a Pre-Operative Diagnosis iron def anemia Post-Operative Diagnosis Diverticulosis, sigmoid polyp x2, rectal polyp Procedure & Operative Findings Date of Procedure 12/30/22 Procedure Performed/Findings EGD w/ bx's, colonoscopy w/ polypectomy x3 Anesthesia Type per CONFERENCE PLANNING MANAGER Estimated Blood Loss Estimated blood loss (mL): none Specimens/Packing Specimens Removed Sigmoid polyps & rectal polyp; Antrum & GE junction HOLLIE SEVILLA DO Dec 30, 2022 13:50
--- NOTE | 2022-12-30 13:51 | Discharge Inst-Simple/Standard ---
Discharge Inst-Standard Patient Instructions/Follow Up Plan of Care/Instructions/FU: P[place]am 2 weeks Activity as Tolerated: Yes Discharge Diet: Regular Diet (Higher fiber) HOLLIE SEVILLA DO Dec 30, 2022 13:51
[2022-12-30 14:35] VITALS: BP 115/58
--- NOTE | 2022-12-30 14:35 | Anesthesia-General Post-Op ---
MAC Patient Condition Mental Status/LOC: Same as Preop Cardiovascular: Satisfactory Nausea/Vomiting: Absent Respiratory: Satisfactory Pain: Controlled Complications: Absent Post Op Complications Complications None Follow Up Care/Instructions Patient Instructions None needed. Anesthesiology Discharge Order Discharge Order Patient is doing well, no complaints, stable vital signs, no apparent adverse anesthesia problems. No complications reported per nursing. ANAMIKA BURRIS CRNA Dec 30, 2022 14:35
--- NOTE | 2022-12-30 23:04 | OPERATIVE REPORT ---
DATE OF SERVICE: 12/30/2022 PREOPERATIVE DIAGNOSIS: Iron deficiency anemia. POSTOPERATIVE DIAGNOSES: Diverticulosis, colon polyps x3, [ ] esophagogastroduodenoscopy. PROCEDURES: EGD with biopsies, colonoscopy with hot biopsy polypectomy x3. SURGEON: Hollie Levin DO ANESTHESIA: Per PORTFOLIO ASSISTANT. ESTIMATED BLOOD LOSS: None. COMPLICATIONS: None. INDICATIONS: The patient is a 77-year-old female with iron deficiency anemia. She understands risks and benefits of procedure and wished to proceed. Consent was signed in chart. DESCRIPTION OF PROCEDURE: The patient was taken to endoscopy suite, placed in left lateral recumbent position. Timeout was performed. Scope was inserted in the mouth, down the esophagus, stomach, into the duodenum without difficulty. No polyps, masses or ulcerations within the duodenum. Scope was slowly retracted back. No polyps, masses or ulcerations in the stomach. Biopsy of the antrum was obtained. Scope was retroflexed noting no other pathology. Scope was returned to its normal position, slowly withdrawn until distal esophagus. Biopsy of GE junction was obtained. No polyps, masses or ulcerations. Scope was slowly retracted back until completely removed, noting no other pathology. Digital rectal exam was performed. No palpable polyps, masses or ulcerations. Scope was inserted in the rectum, advanced all the way to the cecum with minimal difficulty. Prep was adequate. Scope was then slowly retracted back. No polyps, masses or ulcerations in the cecum, ascending, transverse and descending colon. The sigmoid had 2 small polyps, which hot biopsy polypectomy was performed. Also left side of colon had some diverticulosis. In the rectum, a small polyp was present, which hot biopsy polypectomy was performed. Scope was retroflexed noting no other pathology. Scope was returned to its normal position, slowly withdrawn until completely removed. The patient tolerated the procedure well without complications, taken to recovery room in stable condition. RECOMMENDATIONS: The patient follow up on pathology. No source of iron deficiency anemia. We would consider capsule endoscopy for further evaluation. The will need repeat colonoscopy on as needed basis due to her age, if benefits outweigh the risk, per guidelines with polyps, would be every 5 years. Job ID: [id number] DocumentID: [id number] Dictated Date: 12/30/2022 13:55:37 Cosmetics Demonstrator Date: 12/30/2022 23:02:00 Dictated By: HOLLIE LEVIN DO
== END 2022-12-30 14:35 | disposition home or self-care (01) ==
LOC: ENDO 11:17
PROVIDERS: ATTEND Surgery
DX: D50.9 Iron deficiency anemia, unspecified (principal); K63.5 Polyp of colon; K62.1 Rectal polyp; K57.30 Diverticulosis of large intestine without perforation or abscess without bleeding; K21.00 Gastro-esophageal reflux disease with esophagitis, without bleeding; K31.89 Other diseases of stomach and duodenum; C34.90 Malignant neoplasm of unspecified part of unspecified bronchus or lung; J44.9 Chronic obstructive pulmonary disease, unspecified; E66.9 Obesity, unspecified; Z68.28 Body mass index [BMI] 28.0-28.9, adult; Z87.891 Personal history of nicotine dependence

== ENCOUNTER 2023-01-15 08:46 | Outpatient (RCR) | payer MEDICARE ==
[~2023-01-15 08:46] MED LIST changes: -ALBU18HF2 INH; -AMOX-355 PO; +HEParin (CENTRAL IV FLUSH) 500 UNIT/5 ML SYR IV PRN; -IPRA3AMP31 NEB; +NS IV 1000 ML (CANCER CTR) IV SCH; +PEMBROLIZUMAB 200 MG in NS (IVPB) 50 ML 50 ML IV SCH; -PRD10T PO; -SERT-413 PO; -VIT-31 PO
[2023-01-15 10:04] LABS: BASOPHILS # (AUTO) 0.1 10^3/uL (0.0-0.1); BASOPHILS % (AUTO) 1 % (0-10); EOSINOPHILS # (AUTO) 0.4 10^3/uL (0.0-0.3); EOSINOPHILS % (AUTO) 4 % (0-10); HEMATOCRIT 36 % (35-52); HEMOGLOBIN 11.1 g/dL (11.5-16.0); LYMPHOCYTES # (AUTO) 0.6 10^3/uL (1.0-4.0); LYMPHOCYTES % (AUTO) 6 % (12-44); MEAN CORPUSCULAR HEMOGLOBIN 28 pg (25-34); MEAN CORPUSCULAR HGB CONC 31 g/dL (32-36); MEAN CORPUSCULAR VOLUME 89 fL (80-99); MONOCYTES # (AUTO) 0.5 10^3/uL (0.0-1.0); MONOCYTES % (AUTO) 5 % (0-12); NEUTROPHILS # (AUTO) 9.7 10^3/uL (1.8-7.8); NEUTROPHILS % (AUTO) 85 % (42-75); PLATELET COUNT 417 10^3/uL (130-400); WHITE BLOOD COUNT 11.3 10^3/uL (4.3-11.0)
[2023-01-15 10:30] LABS: ALBUMIN 3.1 GM/DL (3.2-4.5); BILIRUBIN,TOTAL 0.6 MG/DL (0.1-1.0); CALCIUM 8.7 MG/DL (8.5-10.1); CREATININE SERUM 1.05 MG/DL (0.60-1.30); POTASSIUM 4.1 MMOL/L (3.6-5.0)
[2023-01-15] MEDS ORDERED: VIT-31 PO (14:27)
[2023-01-15] MEDS ORDERED: IPRA3AMP31 NEB (14:27)
[2023-01-15] MEDS ORDERED: ALBU18HF2 INH (14:27)
[2023-01-15] MEDS ORDERED: SERT-413 PO (14:27)
[2023-01-17] MEDS ORDERED: PRD10T PO (11:19)
[2023-01-17] MEDS ORDERED: AMOX-355 PO (11:19)
== END 2023-01-19 09:49 | disposition home or self-care (01) ==
LOC: ONC 08:46
PROVIDERS: ATTEND Internal Medicine Hematology & Oncology
DX: Z45.2 Encounter for adjustment and management of vascular access device (principal); C34.90 Malignant neoplasm of unspecified part of unspecified bronchus or lung; C79.31 Secondary malignant neoplasm of brain; E78.2 Mixed hyperlipidemia; Z87.891 Personal history of nicotine dependence; Z83.3 Family history of diabetes mellitus
CPT/HCPCS: 80053; 82378; 84443; 85025

== ENCOUNTER 2023-01-15 12:01 | Inpatient (IN) | payer MEDICARE ==
[~2023-01-15] VITALS: Ht 160 cm; Wt 78.4 kg
[~2023-01-15 12:01] MED LIST changes: -HEParin (CENTRAL IV FLUSH) 500 UNIT/5 ML SYR IV PRN; -NS IV 1000 ML (CANCER CTR) IV SCH; -PEMBROLIZUMAB 200 MG in NS (IVPB) 50 ML 50 ML IV SCH
--- OUTSIDE RECORDS SUMMARY | 2023-01-15 12:08 | XMS REPORT | Encounter Summary ---
Author Author [facility] Organization [facility] Address Unknown Phone Unavailable Care Team Providers Care Medical Transcription Editor Name Role Phone Matthew Hernandez MD PCP [phone] Reason for Referral * MRI/CAT/PET Scan (Emergency) - Closed Specialty Diagnoses / Procedures Referred By Contjerry t Referred To Contact Radiology Diagnoses Head ache Procedures CT Head wo contrast Vishal Solomon APRN FNP-C [address] [place] [address] [facility] [address] [place] [address] Referral ID Status Reason Start Date Expiration Date Visits Re quested Visits Authorized [id number] Closed 08/13/2022 08/14/2023 1 1 Encounter Details Date Type Department Care Team Description 08/13/2022 Transcribe Orders [facility] [address] [place] [address] Vishal Solomon APRN FNP-C [address] [place] [address] Head ache (Primary Dx) Social History Tobacco Use Types Packs/Day Years Used Date Smoking Tobacco: Former Cigarettes 1 40 Q uit: 1999 Smokeless Tobacco: Never Alcohol Use Standard Drinks/Week Comments Never 0 (1 standard drink = 0.6 oz pur e alcohol) PHQ-2 Answer Date Recorded Part 1 Score: 0 05/30/2022 [facility] Transportation Needs Answer Date R ecorded Transportation Needs Not on file In the next 24 hours or afte r discharge, are you in a situation where housing, food, or transportation is a concern, or does the patient demonstrate the inability to care for self that could result in imminent harm No 05/30 [facility] Food Insecurity Answer Date Record ed Food Insecurity Not on file In the next 24 hours or afte r discharge, are you in a situation where housing, food, or transportation is a concern, or does the patient demonstrate the inability to care for self that could result in imminent harm No 05/30 [facility] Housing Answer Date Recorded Housing Insecurity Not on file In the next 24 hours or afte r discharge, are you in a situation where housing, food, or transportation is a concern, or does the patient demonstrate the inability to care for self that could result in imminent harm No 05/30 Sex and Gender Information Value Date Recorded Sex Assigned at Not on file Gender Identity Not on file Sexual Orientation Not on file documented as of this encounter Plan of Treatment Not on file documented as of this encounter Procedures Procedure Name Priority Date/Time Associated Diagnosis Comments CT HEAD WO CONTRAST STAT 08/13/2022 1:09 PM CDT Head ache documented in this encounter Results * CT Head wo contrast (08/13/2022 1:09 PM CDT) Anatomical Region Laterality Modality Head Computed Tomogra phy 08/13/2022 12:5 6 PM CDT Impressions 08/13/2022 1:14 PM CDT 1. No evidence of acute intracranial hemorrhage, hydrocephalus, or herniation. 2. Cerebral atrophy, likely senescent and compatible with chronic small vessel ischemic disease. Narrative 08/13/2022 1:14 PM CDT Patient: JAYDA BANKS Sex#: F #: [id number] Janice#: [id number] Location: [facility] CT Ordering Provider: VISHAL SOLOMON Procedure Requested: [id number] CT HEAD WO CONTRAST Reason for Exam: Acute intractable headache, nausea, and dizziness Exam Ordered: 08/13/2022 00 Begin exam date/time: 08/13/2022 1256 Exam Date/Time: 08/13/2022 1309 EXAM: CT HEAD WO CONTRAST INDICATION: Acute intractable headache, nausea, and dizziness. COMPARISON: PET CT from 16 April 2021 TECHNIQUE: Noncontrast CT scan of the brain was performed. Multiplanar reformats were obtained. Radiation dose optimization technique was utilized. Total DLP: 791.56 mGy/cm. FINDINGS: CT HEAD: Mild, diffuse cortical volume loss with ex vacuo ventricular dilatation and mild periventricular white matter hypoattenuation. Calcified cavernous carotid artery atherosclerotic vascular disease. Welch-white matter differentiation is otherwise preserved throughout. No evidence of acute intracranial hemorrhage, hydrocephalus, or herniation. No sulcal effacement, midline shift, or mass-effect. The ventricles are patent and symmetric as appropriate. The brainstem and cerebellum are unremarkable. The globes and orbits are normal. The visualized paranasal sinuses are clear. Mastoid air cells are clear. No depressed or displaced skull fracture. Soft tissues of the scalp and visualized face are within normal limits. Procedure Note Rudi Recinos, DO - 08/13/2022 Patient: JAYDA BANKS Sex#: F #: [id number] Janice#: [id number] Location: [facility] CT Ordering Provider: VISHAL SOLOMON Procedure Requested: [id number] CT HEAD WO CONTRAST Reason for Exam: Acute intractable headache, nausea, and dizziness Exam Ordered: 08/13/2022 00 Begin exam date/time: 08/13/2022 1256 Exam Date/Time: 08/13/2022 1309 EXAM: CT HEAD WO CONTRAST INDICATION: Acute intractable headache, nausea, and dizziness. COMPARISON: PET CT from 16 April 2021 TECHNIQUE: Noncontrast CT scan of the brain was performed. Multiplanar reformats were obtained. Radiation dose optimization technique was utilized. Total DLP: 791.56 mGy/cm. FINDINGS: CT HEAD: Mild, diffuse cortical volume loss with ex vacuo ventricular dilatation and mild periventricular white matter hypoattenuation. Calcified cavernous carotid artery atherosclerotic vascular disease. Welch-white matter differentiation is otherwise preserved throughout. No evidence of acute intracranial hemorrhage, hydrocephalus, or herniation. No sulcal effacement, midline shift, or mass-effect. The ventricles are patent and symmetric as appropriate. The brainstem and cerebellum are unremarkable. The globes and orbits are normal. The visualized paranasal sinuses are clear. Mastoid air cells are clear. No depressed or displaced skull fracture. Soft tissues of the scalp and visualized face are within normal limits. IMPRESSION 1. No evidence of acute intracranial hemorrhage, hydrocephalus, or herniation. 2. Cerebral atrophy, likely senescent and compatible with chronic small vessel ischemic disease. Vishal Solomon APRN TAG MACHINE OPERATOR-C IMG CT ORDERABLE S documented in this encounter Visit Diagnoses Diagnosis Head ache- Primary Headache documented in this encounter Care Teams Medical Transcription Editor Relationship Specialty Start Date End Date Matthew Hernandez MD [address] [place] [address] PCP - General Family Medicine 04/03/21 documented as of this encounter
--- OUTSIDE RECORDS SUMMARY | 2023-01-15 12:08 | XMS REPORT | Clinical Summary ---
Author Author [facility] Organization [facility] Address Unknown Phone Unavailable Care Team Providers Care Courtroom Clerk Name Role Phone Matthew Hernandez MD PCP [phone] Allergies Active Allergy Reactions Criticality Noted Date Comments Codeine Sulfate 04/04/2021 Medications Medication Sig Dispensed Refills Start Date End Date Status ipratropium-albuter oL (DUO-NEB) 0.5-3 mg/3 mL nebulizer Inhale 3 mL via nebulizer every 6 (six) hours as needed. 0 Active meclizine (ANTIVERT) 25 mg tablet Take 25 mg by mouth daily as needed. 0 Active pantoprazole (PROTONIX) 40 MG tablet Take 40 mg by mouth every morning. 0 Active tiZANidine (ZANAFLEX) 2 MG tablet Take 2 mg by mouth 2 (two) times a day as needed. 0 Active fluticasone-umeclid inium-vilanterol (TRELEGY ELLIPTA) 100-62.5-25 mcg inhaler Inhale 1 Inhalation daily. 0 Active albuterol (ACCUNEB) 1.25 mg/3 mL (0.042 %) nebulizer solution Inhale 1 ampule via nebulizer every 6 (six) hours as needed for wheezing. 0 Active albuterol (PROAIR HFA) 90 mcg/actuation HFA inhaler Inhale 2 puffs every 6 (six) hours as needed for wheezing. 0 Active predniSONE (DELTASONE) 20 MG tablet 0 05/23/2022 Active methylPREDNISolone (MEDROL DOSEPACK) 4 mg tablet Follow package directions 21 tablet 0 05/30/2022 Active Active Problems Problem Noted Date Diagnosed Date Nodule of upper lobe of right lung 05/14/2021 Centrilobular emphysema 05/14/2021 Gastroesophageal reflux disease without esophagi tis 05/14/2021 Depression 05/14/2021 Family History Medical History Relation Name Comments Diabetes Mother Heart disease Mother COPD Sister has 5 sisters, all with COPD Relation Name Status Comments Mother Sister Social History Tobacco Use Types Packs/Day Years Used Date Smoking Tobacco: Former Cigarettes 1 40 Q uit: 1999 Smokeless Tobacco: Never Alcohol Use Standard Drinks/Week Comments Never 0 (1 standard drink = 0.6 oz pur e alcohol) PHQ-2 Answer Date Recorded Part 1 Score: 0 05/30/2022 [facility] Transportation Needs Answer Date R ecorded Transportation Needs Not on file In the next 24 hours or afte r discharge, are you in a situation where housing, food, or transportation is a concern, or does the patient demonstrate the inability to care for self that could result in imminent harm No 05/30 [facility] Food Insecurity Answer Date Record ed Food Insecurity Not on file In the next 24 hours or afte r discharge, are you in a situation where housing, food, or transportation is a concern, or does the patient demonstrate the inability to care for self that could result in imminent harm No 05/30 [facility] Housing Answer Date Recorded Housing Insecurity Not [...] on file Sexual Orientation Not on file Last Filed Vital Signs Vital Sign Reading Time Taken Comments Blood Pressure 105/43 05/30/2022 6:00 PM CDT Pulse 93 05/30/2022 6:00 PM CDT Temperature 36.7 C (98 F) 05/30/2022 6:13 PM CDT Respiratory Rate 22 05/30/2022 6:00 PM CDT Oxygen Saturation 93% 05/30/2022 6:00 PM CDT 93 Inhaled Oxygen Concentration - - Weight 82.6 kg (182 lb 3 oz) 06/20/2021 3:03 PM CDT Height 167.6 cm (5' 5.98") 06/20/2021 3:03 PM C DT Body Mass Index 29.42 06/20/2021 3:03 PM CDT Plan of Treatment Health Maintenance Due Date Last Done Comments Hepatitis C Screen 1945 Spirometry # 1945 Td/Tdap# 1945 Depression Screening PHQ-9 # 2011 Osteoporosis Screening 2011 Advance Care Planning Conversation# 03/09/2022 Medicare Annual Wellness 03/09/2022 Social Determinants of Health# 03/09/2022 Fall Risk Assessment # 06/13/2022 06/13/2021 COVID-19 Vaccine (2022-2 4 season) 2022 01/03/2022 Influenza Vaccine (#1) 2022 , 01/04/2020, 12/31/2018, Additional history exists Pneumococcal Vaccine: 65+ Years Completed 8, 02/05/2016 Zoster Vaccine# Completed 04/02/2020, 12/08, 02/05/2016 Care Teams Courtroom Clerk Relationship Specialty Start Date End Date Matthew Hernandez MD [address] [place] [address] PCP - General Family Medicine 04/03/21
--- OUTSIDE RECORDS SUMMARY | 2023-01-15 12:08 | XMS REPORT | Clinical Summary ---
Author Author [facility] Organization [facility] Address Unknown Phone Unavailable Care Team Providers Care Franchise Sales Manager Name Role Phone PCP Unavailable Source Comments Some departments are not documenting in the electronic medical record. If you do not see the information that you expected, contact Release of Information in the Health Information Management department at [phone] for further assistance in locating additional records.[facility] Social History Tobacco Use Types Packs/Day Years Used Date Smoking Tobacco: Never Assessed Sex and Gender Information Value Date Recorded Sex Assigned at Not on file Gender Identity Not on file Sexual Orientation Not on file Plan of Treatment Health Maintenance Due Date Last Done Comments COVID-19 VACCINE (#1) 1945 DTAP/TDAP VACCINES (1 - Tdap) 02/16/1964 HEPATITIS C SCREENING 02/16/1964 PHYSICAL (COMPREHENSIVE) EXAM 02/16/1964 SHINGLES RECOMBINANT VACCINE (1 of 2) 02/16/1996 RSV VACCINE (60 YEARS AND OL EARL) (1 - 1-dose 60+ series) 2006 OSTEOPOROSIS SCREENING/MONITORING 2011 PNEUMOCOCCAL VACCINE 65+ YRS (1 - PCV) 2011 DEPRESSION SCREENING 03/09/2022 INFLUENZA VACCINE (#1) 2022
--- OUTSIDE RECORDS SUMMARY | 2023-01-15 12:08 | XMS REPORT | Encounter Summary ---
Author Author [facility] Organization [facility] Address Unknown Phone Unavailable Care Team Providers Care Law Office Manager Name Role Phone Matthew Hernandez MD PCP [phone] Reason for Visit * MRI/CAT/PET Scan (Emergency) - Closed Specialty Diagnoses / Procedures Referred By Contac t Referred To Contact Radiology Diagnoses Head ache Procedures CT Head wo contrast Vishal Solomon APRN PATENT EXAMINER-C [address] [place] [address] [facility] [address] [place] [address] Referral ID Status Reason Start Date Expiration Date Visits Re quested Visits Authorized [id number] Closed 08/13/2022 08/14/2023 1 1 Encounter Details Date Type Department Care Team Description 08/13/2022 12:56 PM CDT - 08/13/2022 11:59 PM CDT Hospital Encounter [facility] [address] [place] [address] Vishal Solomon APRN PATENT EXAMINER-C [address] [place] [address] Discharge Disposition: Home or Self Care Social History Tobacco Use Types Packs/Day Years Used Date Smoking Tobacco: Former Cigarettes 1 40 Q uit: 1999 Smokeless Tobacco: Never Alcohol Use Standard Drinks/Week Comments Never 0 (1 standard drink = 0.6 oz pur e alcohol) PHQ-2 Answer Date Recorded Part 1 Score: 0 05/30/2022 [facility] Transportation Needs Answer Date R ecorded Transportation Needs Not on file In the next 24 hours or afte r discharge, are you in a situation where housing, food, or transportation is a concern, or does the patient demonstrate the inability to care for self that could result in imminent harm No 05/30 [facility] Food Insecurity Answer Date Record ed Food Insecurity Not on file In the next 24 hours or afte r discharge, are you in a situation where housing, food, or transportation is a concern, or does the patient demonstrate the inability to care for self that could result in imminent harm No 05/30 [facility] Housing Answer Date Recorded Housing [...] on file documented as of this encounter Medications at Time of Discharge Medication Sig Dispensed Refills Start Date End Date albuterol (ACCUNEB) 1.25 mg/3 mL (0.042 %) nebulizer solution Inhale 1 ampule via nebulizer every 6 (six) hours as needed for wheezing. 0 albuterol (PROAIR HFA) 90 mcg/actuation HFA inhaler Inhale 2 puffs every 6 (six) hours as needed for wheezing. 0 fluticasone-umeclidiniu m-vilanterol (TRELEGY ELLIPTA) 100-62.5-25 mcg inhaler Inhale 1 Inhalation daily. 0 ipratropium-albuteroL (DUO-NEB) 0.5-3 mg/3 mL nebulizer Inhale 3 mL via nebulizer every 6 (six) hours as needed. 0 meclizine (ANTIVERT) 25 mg tablet Take 25 mg by mouth daily as needed. 0 methylPREDNISolone (MEDROL DOSEPACK) 4 mg tablet Follow package directions 21 tablet 0 05/30/2022 pantoprazole (PROTONIX) 40 MG tablet Take 40 mg by mouth every morning. 0 predniSONE (DELTASONE) 20 MG tablet 0 05/23/2022 tiZANidine (ZANAFLEX) 2 MG tablet Take 2 mg by mouth 2 (two) times a day as needed. 0 documented as of this encounter Plan of [...] JAYDA BANKS Sex#: F #: [id number] Janice#: [id number] Location: [facility] CT Ordering Provider: VISHAL SOLOMON Procedure Requested: [id number] CT HEAD WO CONTRAST Reason for Exam: [...] DO - 08/13/2022 Patient: JAYDA BANKS Sex#: John #: [id number] Janice#: [id number] Location: [facility] CT Ordering Provider: VISHAL SOLOMON Procedure Requested: [id number] CT HEAD WO CONTRAST Reason for Exam: [...] chronic small vessel ischemic disease. Vishal Solomon BEER RUNNER PATENT EXAMINER-C IMG CT ORDERABLE S documented in this encounter Visit Diagnoses Not on filedocumented in this encounter Care Teams Law Office Manager Relationship Specialty Start Date End Date Matthew Hernandez MD [address] [place] [address] [phone] PCP - General Family Medicine 04/03/21 documented as of this encounter
--- OUTSIDE RECORDS SUMMARY | 2023-01-15 12:10 | XMS REPORT ---
Author Author [facility] ter [facility] ter [facility] Address Unknown Phone Unavailable Care Team Providers Care Exercise Instruct Name Role Phone MATTHEW WALLACE Unavailable PROBLEMS Type Condition ICD9-CM Code [id number] Code Onset Dates Condition Status W/U Status Risk SNOMED Code Notes Problem Chronic kidney disease (CKD) stage G3a/A1, moderately decreased glomerular filtration rate (GFR) between 45-59 mL/min/1.73 square meter and albuminuria creatinine ratio less than 30 mg/g N18.31 confirmed 132720451 Problem Dry eye of left side H04.122 confirmed 107896061 Problem Brain cancer C71.9 confirmed 8807240 05 Problem Chronic kidney disease, stage 3b N18.32 confirmed 154887232 Problem Tension headache G44.209 confirmed 788493024 Problem Pulmonary nodule, left R91.1 confirmed 500452858 Problem Lung cancer C34.90 confirmed 9577005 00 Problem COPD exacerbation J44.1 confirmed [id number] ALLERGIES Allergen (clinical drug ingredient) Drug/Non Drug Allergy documented on EMR Reaction Allergy Type Onset Date Status codeine Codeine Sulfate([facility] Code:[address]-72) Unknown Drug Allergy Active ENCOUNTERS from 1945 to 2023-01-03 Encounter Location Date Provider Diagnosis [facility] [address] [place] [address] [facility] [id number] [place] [address] 31 Dec, 2020 MATTHEW WALLACE IMMUNIZATIONS Vaccine Route Administration Date Status FLUARIX QUAD (3 AND UP) 2017 IM Intramuscular Dec 17, 2016 Administered FLUARIX QUAD P-FREE 3 AND UP .50 2015 IM Intramuscular Dec 19, 2015 Administered 1st Booster MODERNA Bivalent , COVID-19, 0.5mL IM Intramuscular Jan 03, 2022 Administered PRIVATE HIGH DOSE FLU 22-23 (FLUZONE HD) AGE 65YRS AND UP IM Intramuscular Jan 03, 2022 Administer ed zostavax (history) Unknown Feb 05, 2016 Administe red pneumovax ppsv 23 (history) Unknown Apr 19, 2017 Administered prevnar pcv 13 (history) Unknown Feb 05, 2016 Adm inistered shingrix (history) Unknown Apr 02, 2020 Administe red influenza IIV3 high dose (history) Unknown Dec Administered influenza IIV3 high dose (history) Unknown Dec Administered tdap (history) Unknown Feb 05, 2016 Administered shingrix (history) Unknown Jan 04, 2020 Administe red 1st Dose HRSA MODERNA, COVID -19, 0.5mL IM Intramuscular June 20, 2020 Administered PRIVATE FLULAVAL QUAD 0.5ML (6 MO AND UP) 2020 IM Intramuscular Dec 03, 2020 Administered 2nd Dose HRSA MODERNA, COVID -19, 0.5mL IM Intramuscular July 20, 2020 Administered PRIVATE FLUZONE HIGH DOSE QU AD 0.7ML (65 and UP) 2019 Unknown Jan 04, 2020 Administered SOCIAL HISTORY Sex Assigned At : Social History Observation Description Sex Assigned At Unknown PHQ2 Question Answer Notes In the last 2 weeks, how oft en have you had little interest or pleasure in doing things? Several days In the last 2 weeks, how oft en have you been feeling down, depressed, or hopeless? Not at all Total PHQ2 Score 1 REASON FOR REFERRAL No Information MEDICATIONS Medication SIG (Take, Route, Frequency, Duration) Notes Start Date End Date Status Trelegy Ellipta 100-62.5-25 MCG/ACT INHALE ONE (1) PUFF BY MOUTH ONCE DAILY inhalation once a day for 60 days Active Sertraline HCl 50 MG TAKE ONE (1) TABLET BY MOUTH ONCE DAILY orally once a day for 90 days Active guaiFENesin-DM 100-10 MG/5ML 10 mL as needed Orally every 6 hrs for 7 days Oct, Active Ondansetron HCl 4 MG 1 tablet Orally hodan ry 8 hours for 10 days Aug, Active Albuterol Sulfate HFA 108 (90 Base) MCG/ACT 2 puff as needed Inhalation every 4 hrs for 30 days May, Not-Taking Pantoprazole Sodium 40 MG TAKE ONE (1) TABLET BY MOUTH ONCE DAILY Orally Once a day for 90 days Active Albuterol Sulfate 108 (90 Base) MCG/ACT 2 puff as needed Inhalation every 4 hrs for 30 day(s) Active Ipratropium-Albuterol 0.5-2.5 (3) MG/3ML 3 ml as needed Inhalation every 6 hrs for 14 days Active REASON FOR VISIT lab results MEDICAL (GENERAL) HISTORY Type Description Date Medical History Heartburn for several years Medical History Depression 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 Medical History Chronic kidney disea se (CKD) stage G3a/A1, moderately decreased glomerular filtration rate (GFR) between 45-59 mL/min/1.73 square meter and albuminuria creatinine ratio less than 30 mg/g Medical History Lung cancer Medical History Brain cancer Surgical History hysterectomy 1985 Surgical History tubal ligation 1979 Hospitalization History surgery complications MENTAL STATUS No Information PLAN OF TREATMENT Medication Medication Name Sig Start Date Stop Date Sertraline HCl 50 MG TAKE ONE (1) TABLET BY MOUTH ONCE DAILY orally once a day for 90 days Pantoprazole Sodium 40 MG TAKE ONE (1) T ABLET BY MOUTH ONCE DAILY Orally Once a day for 90 days Insurance Providers Payer Name Payer Address Payer Phone Insured Name Patient Relationship to Insured Coverage Start Date Coverage End Date Subscriber Number Group Number AARP Medicare Advantage Choice Plan 2 (PPO) [address] [address] [facility] [phone] Annmarie Madera Self - patient is the insured 1 [id number] [facility] PART A [address] [facility] [phone] Annmarie Madera Self - patient is the insured [id number] [employer] [place] [address] [place] [address] Annmarie Madera Self - patient is the insured 5 [id number]
--- OUTSIDE RECORDS SUMMARY | 2023-01-15 12:10 | XMS REPORT ---
Author Author [facility] ter [facility] ter [facility] Address Unknown Phone Unavailable Care Team Providers Care Insurance Representative Name Role Phone MATTHEW WALLACE Unavailable PROBLEMS Type Condition ICD9-CM Code [id number] Code Onset Dates Condition Status W/U Status Risk SNOMED Code Notes Problem Chronic kidney disease (CKD) stage G3a/A1, moderately decreased glomerular filtration rate (GFR) between 45-59 mL/min/1.73 square meter and albuminuria creatinine ratio less than 30 mg/g N18.31 confirmed 034026669 Problem Dry eye of left side H04.122 confirmed 997513413 Problem Brain cancer C71.9 confirmed 1879365 05 Problem Chronic kidney disease, stage 3b N18.32 confirmed 588224661 Problem Tension headache G44.209 confirmed 501218802 Problem Pulmonary nodule, left R91.1 confirmed 426350680 Problem Lung cancer C34.90 confirmed 5197990 00 Problem COPD exacerbation J44.1 confirmed [id number] ALLERGIES Allergen (clinical drug ingredient) Drug/Non Drug Allergy documented on EMR Reaction Allergy Type Onset Date Status codeine Codeine Sulfate([facility] Code:[address]-90) Unknown Drug Allergy Active ENCOUNTERS from 1945 to 2022-12-21 Encounter Location Date Provider [facility] [address] [place] [address] [facility] [id number] [place] [address] Dec, MATTHEW WALLACE IMMUNIZATIONS Vaccine Route Administration Date Status prevnar pcv 13 (history) Unknown Feb 05, 2016 Adm inistered FLUARIX QUAD (3 AND UP) 2017 IM Intramuscular Dec 17, 2016 Administered FLUARIX QUAD P-FREE 3 AND UP .50 2016 IM Intramuscular Dec 19, 2015 Administered 1st Dose HRSA MODERNA, COVID -19, 0.5mL IM Intramuscular June 20, 2020 Administered influenza IIV3 high dose (history) Unknown Dec Administered zostavax (history) Unknown Feb 05, 2016 Administe red pneumovax ppsv 23 (history) Unknown Apr 19, 2017 Administered 2nd Dose HRSA MODERNA, COVID -19, 0.5mL IM Intramuscular July 20, 2020 Administered influenza IIV3 high dose (history) Unknown Dec Administered tdap (history) Unknown Feb 05, 2016 Administered shingrix (history) Unknown Jan 04, 2020 Administe red shingrix (history) Unknown Apr 02, 2020 Administe red PRIVATE FLUZONE HIGH DOSE QU AD 0.7ML (65 and UP) 2019 Unknown Jan 04, 2020 Administered PRIVATE FLULAVAL QUAD 0.5ML (6 MO AND UP) 2020 IM Intramuscular Dec 03, 2020 Administered PRIVATE HIGH DOSE FLU 22-23 (FLUZONE HD) AGE 65YRS AND UP IM Intramuscular Jan 03, 2022 Administer ed 1st Booster MODERNA Bivalent , COVID-19, 0.5mL IM Intramuscular Jan 03, 2022 Administered SOCIAL HISTORY Sex Assigned At : [...] for 14 days Active REASON FOR VISIT inhaler refill MEDICAL (GENERAL) HISTORY Type Description Date Medical [...] tubal ligation 1979 Hospitalization History surgery complications 19 86 MENTAL STATUS No Information PLAN OF TREATMENT [...] Advantage Choice Plan 2 (PPO) [address] [address] [facility] [address] Annmarie Madera Self - patient is the insured 1 [id number] [facility] PART A [address] [facility] [phone] Annmarie Madera Self - patient is the insured [id number] [employer] CALI [address] [facility] [place] [address] [phone] Annmarie Madera Self - patient is the insured 5 [id number]
--- OUTSIDE RECORDS SUMMARY | 2023-01-15 12:10 | XMS REPORT ---
Author Author [facility] ter [facility] ter [facility] Address Unknown Phone Unavailable Care Team Providers Care Dry Chain Worker Name Role Phone MELISSA WALLACE Unavailable PROBLEMS Type Condition ICD9-CM Code [id number] Code Onset Dates Condition Status W/U Status Risk SNOMED Code Notes Problem Chronic kidney disease (CKD) stage G3a/A1, moderately decreased glomerular filtration rate (GFR) between 45-59 mL/min/1.73 square meter and albuminuria creatinine ratio less than 30 mg/g N18.31 confirmed 402120971 Problem Dry eye of left side H04.122 confirmed 745250345 Problem Brain cancer C71.9 confirmed 0124456 05 Problem Chronic kidney disease, stage 3b N18.32 confirmed 405182708 Problem Tension headache G44.209 confirmed 168904320 Problem Pulmonary nodule, left R91.1 confirmed 829114194 Problem Lung cancer C34.90 confirmed 1794353 00 Problem COPD exacerbation J44.1 confirmed 033415349 ALLERGIES Allergen (clinical drug ingredient) Drug/Non Drug Allergy documented on EMR Reaction Allergy Type Onset Date Status codeine Codeine Sulfate([facility] Code:[address]-29) Unknown Drug Allergy Active ENCOUNTERS from 1945 to 2022-12-06 Encounter Location Date Provider Diagnosis [facility] [address] [place] [address] [facility] [id number] [place] [address] Dec, MELISSA WALLACE Chronic kidney disease (CKD) stage G3a/A1, moderately decreased glomerular filtration rate (GFR) between 45-59 mL/min/1.73 square meter and albuminuria creatinine ratio less than 30 mg/g N18.31 IMMUNIZATIONS Vaccine Route Administration Date Status influenza IIV3 high dose (history) Unknown Dec Administered zostavax (history) Unknown Feb 05, 2016 Administe red pneumovax ppsv 23 (history) Unknown Apr 19, 2017 Administered prevnar pcv 13 (history) Unknown Feb 05, 2016 Adm inistered shingrix (history) Unknown Jan 04, 2020 Administe red tdap (history) Unknown Feb 05, 2016 Administered influenza IIV3 high dose (history) Unknown Dec Administered FLUARIX QUAD P-FREE 3 AND UP .50 2015 IM Intramuscular Dec 19, 2015 Administered shingrix (history) Unknown Apr 02, 2020 Adminjosee red PRIVATE FLUZONE HIGH DOSE QU AD 0.7ML (65 and UP) 2019 Unknown Jan 04, 2020 Administered PRIVATE HIGH DOSE FLU 22-23 (FLUZONE HD) AGE 65YRS AND UP IM Intramuscular Jan 03, 2022 Administer ed 1st Booster MODERNA Bivalent , COVID-19, 0.5mL IM Intramuscular Jan 03, 2022 Administered PRIVATE FLULAVAL QUAD 0.5ML (6 MO AND UP) 2020 IM Intramuscular Dec 03, 2020 Administered 2nd Dose HRSA MODERNA, COVID -19, 0.5mL IM Intramuscular July 20, 2020 Administered 1st Dose HRSA MODERNA, COVID -19, 0.5mL IM Intramuscular June 20, 2020 Administered FLUARIX QUAD (3 AND UP) 2016 IM Intramuscular Dec 17, 2016 Administered SOCIAL HISTORY Sex Assigned At : [...] for 14 days Active REASON FOR VISIT meds refilled MEDICAL (GENERAL) HISTORY Type Description Date Medical History Heartburn for several years Medical History Depression Medical History Melissa Bonnet Syndrome Medical History Macular Degeneration Medical History Chronic kidney disea se (CKD) stage G3a/A1, moderately decreased glomerular filtration rate (GFR) between 45-59 mL/min/1.73 square meter and albuminuria creatinine ratio less than 30 mg/g Medical History Lung cancer Medical History Brain cancer Surgical History hysterectomy 1985 Surgical History tubal ligation 1979 Hospitalization History surgery complications 19 86 MENTAL STATUS No Information ASSESSMENTS Encounter Date Diagnosis Assessment Notes Treatment Notes Treatment Clinical Notes Dec, Chronic kidney disease (CKD) stage G3a/A1, moderately decreased glomerular filtration rate (GFR) between 45-59 mL/min/1.73 square meter and albuminuria creatinine ratio less than 30 mg/g (ICD-10 - N18.31) PLAN OF TREATMENT Medication Medication Name Sig [...] Coverage End Date Subscriber Number Group Number WPS [facility] PART A [address] [facility] [phone] Annmarie Madera Self - patient is the insured [id number] L[employer]SET[employer] CALI [address] [place] [address] Annmarie Madera Self - patient is the insured 5 [id number] AARP Medicare Advantage Choice Plan 2 (PPO) [address] [address] [facility] [address] Annmarie Madera Self - patient is the insured 1 [id number]
--- OUTSIDE RECORDS SUMMARY | 2023-01-15 12:10 | XMS REPORT ---
Author Author [facility] Address Unknown Phone Unavailable Care Team Providers Care Pipe Smoking Machine Operator Name Role Phone MELISSA WALLACE Unavailable PROBLEMS Type Condition ICD9-CM Code [id number] Code Onset Dates Condition Status W/U Status Risk SNOMED Code Notes Problem Chronic kidney disease (CKD) stage G3a/A1, moderately decreased glomerular filtration rate (GFR) between 45-59 mL/min/1.73 square meter and albuminuria creatinine ratio less than 30 mg/g N18.31 confirmed 219221296 Problem Dry eye of left side H04.122 confirmed 444826183 Problem Brain cancer C71.9 confirmed 4010450 05 Problem Chronic kidney disease, stage 3b N18.32 confirmed 167945098 Problem Tension headache G44.209 confirmed 603925673 Problem Pulmonary nodule, left R91.1 confirmed 772779218 Problem Lung cancer C34.90 confirmed 8125227 00 Problem COPD exacerbation J44.1 confirmed 274293781 ALLERGIES Allergen (clinical drug ingredient) Drug/Non Drug Allergy documented on EMR Reaction Allergy Type Onset Date Status codeine Codeine Sulfate([facility] Code:[address]-45) Unknown Drug Allergy Active ENCOUNTERS from 1945 to 2022-12-05 Encounter Location Date Provider Diagnosis [facility] [address] [place] [address] [facility] [id number] [address] Nov, MELISSA WALLACE Screening for breast cancer Z12.39 ; Dyspnea R06.00 and Screening for colon cancer Z12.11 IMMUNIZATIONS Vaccine Route Administration Date Status prevnar pcv 13 (history) Unknown Feb 05, 2016 Adm inistered FLUARIX QUAD P-FREE 3 AND UP .50 2016 IM Intramuscular Dec 19, 2015 Administered 2nd Dose HRSA MODERNA, COVID -19, 0.5mL IM Intramuscular July 20, 2020 Administered FLUARIX QUAD (3 AND UP) 2016 IM Intramuscular Dec 17, 2016 Administered influenza IIV3 high dose (history) Unknown Dec Administered zostavax (history) Unknown Feb 05, 2016 Administe red pneumovax ppsv 23 (history) Unknown Apr 19, 2017 Administered 1st Booster MODERNA Bivalent , COVID-19, 0.5mL IM Intramuscular Jan 03, 2022 Administered influenza IIV3 high dose (history) Unknown Dec Administered tdap (history) Unknown Feb 05, 2016 Administered shingrix (history) Unknown Jan 04, 2020 Administe red shingrix (history) Unknown Apr 02, 2020 Administe red PRIVATE FLUZONE HIGH DOSE QU AD 0.7ML (65 and UP) 2019 Unknown Jan 04, 2020 Administered 1st Dose HRSA MODERNA, COVID -19, 0.5mL IM Intramuscular June 20, 2020 Administered PRIVATE FLULAVAL QUAD 0.5ML (6 MO AND UP) 2020 IM Intramuscular Dec 03, 2020 Administered PRIVATE HIGH DOSE FLU 22-23 (FLUZONE HD) AGE 65YRS AND UP IM Intramuscular Jan 03, 2022 Administer ed SOCIAL HISTORY Sex Assigned At : Social [...] Total PHQ2 Score 1 REASON FOR REFERRAL from 1945 to 2022-12-05 Reason New pt to [facility]. H ad CScoep 2015 and they recommended repeat in 5 yrs. We will fax report Diagnosis 1 Screening for colon cancer (Z12.11) Referral Organization [facility] [address] [place] Referring Provider First Name MELISSA Referring Provider Last Name MADISON Referring Provider Specialty Family Prac kyle Referred Provider Sarwat Mendes Referred Provider Specialty General Surg julito Referral Priority Routine Referral Appointment Date 2020-12-28 General Notes Caitlin Farrell 08:42:26 AM >Faxed referral with records. Please schedule with patient. Thank you. Caitlin Farrell Geovanna 12/24/2020 02:21:08 PM >Scheduled for 12/28/20 @ 1:00pm VITAL SIGNS Height 66 in Nov, Weight 169.8 lbs Nov, Weight-kg 77.02 kg Nov, Temperature 98.2 degrees Fahrenheit Nov, Heart Rate 64 bpm Nov, BMI 27.4 kg/m2 Nov, Blood pressure systolic 124 mmHg Nov, Blood pressure diastolic 62 mmHg Nov, MEDICATIONS Medication SIG (Take, Route, Frequency, Duration) [...] for 14 days Active REASON FOR VISIT [facility] care. Deni KING MEDICAL (GENERAL) HISTORY Type Description Date Medical [...] Assessment Notes Treatment Notes Treatment Clinical Notes Nov, Dyspnea (ICD-10 - R06.00) check old records Nov, Screening for breast cancer (ICD-10 - Z12.39) Nov, Screening for colon cancer (ICD-10 - Z12.11) She had a CScope 5 yrs ago was told needed one in 5 yrs no polyps we will check report refer to DR. Mendes after report Nov, Other Chest x-ray troy d by me today was negative. She was told she had a history of COPD in the past. Apparently she underwent a normal cardiac work-up at [facility] 2 years ago. I am going to try to get reports I did discuss with her about this possibly being cardiac in etiology but apparently it been going on for a while and she had normal cardiac work-up 2 years ago. She is not on any other type of inhaler medication. I am going to try her on a Trelegy inhaler I did give her 2 weeks of a sample of this and she will call me back in 2 weeks with an update. In regards to her health maintenance I did schedule her mammogram today. We are going to give her colonoscopy report to see if she needs a repeat as general surgery will deftly want a repeat prior to that and referred to Dr. Navjot Chen in [place] after this is done. We will follow up with her by phone in 2 weeks for recheck sooner if any worsening condition. PLAN OF TREATMENT Medication Medication Name Sig Start Date Stop Date Sertraline HCl 50 MG TAKE ONE (1) TABLET BY MOUTH ONCE DAILY orally once a day for 90 days Pantoprazole Sodium 40 MG TAKE ONE (1) T ABLET BY MOUTH ONCE DAILY Orally Once a day for 90 days Treatment Notes Assessment Notes Clinical Notes Dyspnea check old record s Screening for colon cancer She h ad a CScope 5 yrs ago was told needed one in 5 yrs no polyps we will check report refer to DR. Mendes after report Pending Tests Test Name Order Date Mammogram, Bilateral Screening 2020-11-08 4 Referrals Referral Date Details 2020-12-28 2020-12-28, New pt t o [facility]. Had CScoep 2015 and they recommended repeat in 5 yrs. We will fax report, Sarwat Mendes Next Appt Details prn Reason: Insurance Providers Payer Name Payer Address Payer Phone Insured Name Patient Relationship to Insured Coverage Start Date Coverage End Date Subscriber Number Group Number AARP Medicare Advantage Choice Plan 2 (PPO) [address] [address] [facility] [phone] Annmarie Banks Self - patient is the insured 1 [id number] [address] [address] [place] [address] Annmarie Banks Self - patient is the insured 5 [id number] [facility] PART A [address] [facility] [id number] Annmarie Banks Self - patient is the insured [id number]
--- OUTSIDE RECORDS SUMMARY | 2023-01-15 12:10 | XMS REPORT ---
Author Author [facility] ter [facility] ter [facility] Address Unknown Phone Unavailable Care Team Providers Care Lighting Designer Name Role Phone MATTHEW WALLACE Unavailable PROBLEMS Type Condition ICD9-CM Code [id number] Code Onset Dates Condition Status W/U Status Risk SNOMED Code Notes Problem Chronic kidney disease (CKD) stage G3a/A1, moderately decreased glomerular filtration rate (GFR) between 45-59 mL/min/1.73 square meter and albuminuria creatinine ratio less than 30 mg/g N18.31 confirmed 602950533 Problem Dry eye of left side H04.122 confirmed 365693601 Problem Brain cancer C71.9 confirmed 3422198 05 Problem Chronic kidney disease, stage 3b N18.32 confirmed 782909686 Problem Tension headache G44.209 confirmed 293301752 Problem Pulmonary nodule, left R91.1 confirmed 380687366 Problem Lung cancer C34.90 confirmed 4571326 00 Problem COPD exacerbation J44.1 confirmed [id number] ALLERGIES Allergen (clinical drug ingredient) Drug/Non Drug Allergy documented on EMR Reaction Allergy Type Onset Date Status codeine Codeine Sulfate([facility] Code:[address]-67) Unknown Drug Allergy Active ENCOUNTERS from 1945 to 2023-01-05 Encounter Location Date [facility] [address] [place] [address] [facility] [id number] [place] [address] Jan, MATTHEW WALLACE IMMUNIZATIONS Vaccine Route Administration Date Status 1st Booster MODERNA Bivalent , COVID-19, 0.5mL IM Intramuscular Jan 03, 2022 Administered PRIVATE HIGH DOSE FLU 22-23 (FLUZONE HD) AGE 65YRS AND UP IM Intramuscular Jan 03, 2022 Administer ed 2nd Dose HRSA MODERNA, COVID -19, 0.5mL IM Intramuscular July 20, 2020 Administered 1st Dose HRSA MODERNA, COVID -19, 0.5mL IM Intramuscular June 20, 2020 Administered shingrix (history) Unknown Apr 02, 2020 Administe red PRIVATE FLUZONE HIGH DOSE QU AD 0.7ML (65 and UP) 2019 Unknown Jan 04, 2020 Administered PRIVATE FLULAVAL QUAD 0.5ML (6 MO AND UP) 2020 IM Intramuscular Dec 03, 2020 Administered FLUARIX QUAD P-FREE 3 AND UP .50 2015 IM Intramuscular Dec 19, 2015 Administered shingrix (history) Unknown Jan 04, 2020 [...] 2017 IM Intramuscular Dec 17, 2016 Administered SOCIAL [...] for 14 days Active REASON FOR VISIT Monoclonal Antibodies MEDICAL (GENERAL) HISTORY Type Description Date Medical [...] Coverage End Date Subscriber Number Group Number [employer] [address] [place] [address] Annmarie Madera Self - patient is the insured 5 [id number] AARP Medicare Advantage Choice Plan 2 (PPO) [address] [address] [facility] [phone] Annmarie Madera Self - patient is the insured 1 [id number] [facility] PART A FI [address] [facility] [address] Annmarie Madera Self - patient is the insured [id number]
--- OUTSIDE RECORDS SUMMARY | 2023-01-15 12:10 | XMS REPORT ---
Author Author [facility] ter [facility] ter [facility] Address Unknown Phone Unavailable Care Team Providers Care Roving Weight Gauger Name Role Phone SHAUNA RIVERS Unavailable PROBLEMS Type Condition ICD9-CM Code [id number] Code Onset Dates Condition Status W/U Status Risk SNOMED Code Notes Problem Chronic kidney disease (CKD) stage G3a/A1, moderately decreased glomerular filtration rate (GFR) between 45-59 mL/min/1.73 square meter and albuminuria creatinine ratio less than 30 mg/g N18.31 confirmed Problem Dry eye of left side H04.122 confirmed 560357650 Problem Brain cancer C71.9 confirmed Problem Chronic kidney disease, stage 3b N18.32 confirmed Problem Tension headache G44.209 confirmed 760452159 Problem Pulmonary nodule, left R91.1 confirmed Problem Lung cancer C34.90 confirmed Problem COPD exacerbation J44.1 confirmed [id number] ALLERGIES Allergen (clinical drug ingredient) Drug/Non Drug Allergy documented on EMR Reaction Allergy Type Onset Date Status codeine Codeine Sulfate([facility] Code:[address]-85) Unknown Drug Allergy Active ENCOUNTERS from 1945 to 2023-01-04 Encounter Location Date Provider [facility] [place] [facility] [address] [facility] [id number] [place] [address] Jan, SHAUNA RIVERS Encounter for screening for COVID-19 Z11.52 IMMUNIZATIONS Vaccine Route Administration Date Status zostavax (history) Unknown Feb 05, 2016 Administe red pneumovax ppsv 23 (history) Unknown Apr 19, 2017 Administered prevnar pcv 13 (history) Unknown Feb 05, 2016 Adm inistered FLUARIX QUAD P-FREE 3 AND UP .50 2016 IM Intramuscular Dec 19, 2015 Administered tdap (history) Unknown Feb 05, 2016 Administered influenza IIV3 high dose (history) Unknown Dec Administered influenza IIV3 high dose (history) Unknown Dec Administered FLUARIX QUAD (3 AND UP) 2017 IM Intramuscular Dec 17, 2016 Administered shingrix (history) Unknown Jan 04, 2020 Administe red shingrix (history) Unknown Apr 02, 2020 Administe red PRIVATE FLUZONE HIGH DOSE QU AD 0.7ML (65 and UP) 2019 Unknown Jan 04, 2020 Administered 1st Booster MODERNA Bivalent , COVID-19, 0.5mL IM Intramuscular Jan 03, 2022 Administered PRIVATE HIGH DOSE FLU 22-23 (FLUZONE HD) AGE 65YRS AND UP IM Intramuscular Jan 03, 2022 Administer ed PRIVATE FLULAVAL QUAD 0.5ML (6 MO AND UP) 2020 IM Intramuscular Dec 03, 2020 Administered 2nd Dose HRSA MODERNA, COVID -19, 0.5mL IM Intramuscular July 20, 2020 Administered 1st Dose HRSA MODERNA, COVID -19, 0.5mL IM Intramuscular June 20, 2020 Administered SOCIAL HISTORY Sex Assigned At [...] for 14 days Active REASON FOR VISIT Covid Testing/Symptomatic/Positive exposure/Gold toyota josue MEDICAL (GENERAL) HISTORY Type Description Date Medical [...] tubal ligation 1979 Hospitalization History surgery complications 86 MENTAL STATUS No Information ASSESSMENTS Encounter Date Diagnosis Assessment Notes Treatment Notes Treatment Clinical Notes Jan, Encounter for screening for COVID-19 (ICD-10 - Z11.52) PLAN OF TREATMENT Medication Medication Name Sig Start Date Stop Date Sertraline HCl 50 MG TAKE ONE (1) TABLET BY MOUTH ONCE DAILY orally once a day for 90 days Pantoprazole Sodium 40 MG TAKE ONE (1) T ABLET BY MOUTH ONCE DAILY Orally Once a day for 90 days Next Appt Details prn Reason: Insurance Providers Payer Name Payer Address Payer Phone Insured Name Patient Relationship to Insured Coverage Start Date Coverage End Date Subscriber Number Group Number AARP Medicare Advantage Choice Plan 2 (PPO) [address] [address] [facility] [phone] Annmarie Madera Self - patient is the insured 1 [id number] [facility] PART A FI [address] [facility] [phone] Annmarie Madera Self - patient is the insured [id number] [employer] [address] [place] [address] Annmarie Madera Self - patient is the insured 5 [id number]
--- OUTSIDE RECORDS SUMMARY | 2023-01-15 12:10 | XMS REPORT ---
Author Author [facility] ter [facility] ter [facility] Address Unknown Phone Unavailable Care Team Providers Care End Stapler Name Role Phone MATTHEW WALLACE Unavailable PROBLEMS Type Condition ICD9-CM Code [id number] Code Onset Dates Condition Status W/U Status Risk SNOMED Code Notes Problem Chronic kidney disease (CKD) stage G3a/A1, moderately decreased glomerular filtration rate (GFR) between 45-59 mL/min/1.73 square meter and albuminuria creatinine ratio less than 30 mg/g N18.31 confirmed 185463162 Problem Dry eye of left side H04.122 confirmed 530807459 Problem Brain cancer C71.9 confirmed 1755089 05 Problem Chronic kidney disease, stage 3b N18.32 confirmed 023438069 Problem Tension headache G44.209 confirmed 898295984 Problem Pulmonary nodule, left R91.1 confirmed 401284690 Problem Lung cancer C34.90 confirmed 3507392 00 Problem COPD exacerbation J44.1 confirmed [id number] ALLERGIES Allergen (clinical drug ingredient) Drug/Non Drug Allergy documented on EMR Reaction Allergy Type Onset Date Status codeine Codeine Sulfate([facility] Code:[address]-10) Unknown Drug Allergy Active ENCOUNTERS from 1945 to 2022-12-28 Encounter Location Date Provider [facility] [address] [facility] [id number] [place] [address] Dec, MATTHEW WALLACE Chronic kidney disease (CKD) stage G3a/A1, moderately decreased glomerular filtration rate (GFR) between 45-59 mL/min/1.73 square meter and albuminuria creatinine ratio less than 30 mg/g N18.31 IMMUNIZATIONS Vaccine Route Administration Date Status 2nd Dose HRSA MODERNA, COVID -19, 0.5mL IM Intramuscular July 20, 2020 Administered PRIVATE FLULAVAL QUAD 0.5ML (6 MO AND UP) 2020 IM Intramuscular Dec 03, 2020 Administered PRIVATE HIGH DOSE FLU 22-23 (FLUZONE HD) AGE 65YRS AND UP IM Intramuscular Jan 03, 2022 Administer ed 1st Booster MODERNA Bivalent , COVID-19, 0.5mL IM Intramuscular Jan 03, 2022 Administered shingrix (history) Unknown Apr 02, 2020 Administe red PRIVATE FLUZONE HIGH DOSE QU AD 0.7ML (65 and UP) 2019 Unknown Jan 04, 2020 Administered 1st Dose HRSA MODERNA, COVID -19, 0.5mL IM Intramuscular June 20, 2020 Administered FLUARIX QUAD P-FREE 3 AND UP .50 2016 IM Intramuscular Dec 19, 2015 Administered shingrix [...] Adm inistered FLUARIX QUAD (3 AND UP) 2016 IM [...] for 14 days Active REASON FOR VISIT Lab (walk-in) MEDICAL (GENERAL) HISTORY Type Description Date Medical [...] Advantage Choice Plan 2 (PPO) [address] [address] [facility] [phone] Annmarie Madera Self - patient is the insured 1 [id number] [facility] PART A [address] [facility] [phone] Annmarie Madera Self - patient is the insured [id number] [facility] [address] [place] [address] Annmarie Madera Self - patient is the insured 5 [id number]
--- OUTSIDE RECORDS SUMMARY | 2023-01-15 12:10 | XMS REPORT ---
Author Author [facility] ter [facility] ter [facility] Address Unknown Phone Unavailable Care Team Providers Care Cyber Security Manager Name Role Phone MATTHEW WALLACE Unavailable PROBLEMS Type Condition ICD9-CM Code [id number] Code Onset Dates Condition Status W/U Status Risk SNOMED Code Notes Problem Chronic kidney disease (CKD) stage G3a/A1, moderately decreased glomerular filtration rate (GFR) between 45-59 mL/min/1.73 square meter and albuminuria creatinine ratio less than 30 mg/g N18.31 confirmed 397699698 Problem Dry eye of left side H04.122 confirmed 407981247 Problem Brain cancer C71.9 confirmed 4177051 05 Problem Chronic kidney disease, stage 3b N18.32 confirmed 858457902 Problem Tension headache G44.209 confirmed 221569662 Problem Pulmonary nodule, left R91.1 confirmed 191035648 Problem Lung cancer C34.90 confirmed 4318585 00 Problem COPD exacerbation J44.1 confirmed 242984105 ALLERGIES Allergen (clinical drug ingredient) Drug/Non Drug Allergy documented on EMR Reaction Allergy Type Onset Date Status codeine Codeine Sulfate([facility] Code:[address]-90) Unknown Drug Allergy Active ENCOUNTERS from 1945 to 2022-12-29 Encounter Location Date [facility] [address] [place] [address] [facility] [id number] [place] [address] Dec, MATTHEW WALLACE IMMUNIZATIONS Vaccine Route Administration Date Status zostavax (history) Unknown Feb 05, 2016 Administe red pneumovax ppsv 23 (history) Unknown Apr 19, 2017 Administered prevnar pcv 13 (history) Unknown Feb 05, 2016 Adm inistered FLUARIX QUAD P-FREE 3 AND UP .50 2015 IM Intramuscular Dec 19, 2015 Administered tdap [...] 0.5mL IM Intramuscular June 20, 2020 Administered 2nd Dose HRSA MODERNA, COVID -19, 0.5mL IM Intramuscular July 20, 2020 Administered PRIVATE FLULAVAL QUAD 0.5ML (6 MO AND UP) 2020 IM Intramuscular Dec 03, 2020 Administered 1st Booster MODERNA Bivalent , [...] for 14 days Active REASON FOR VISIT Requests return call MEDICAL (GENERAL) HISTORY Type Description Date Medical [...] surgery complications 86 MENTAL STATUS No Information PLAN OF [...] Advantage Choice Plan 2 (PPO) [address] [address] [facility] [address] Annmarie Madera Self - patient is the insured 1 [id number] [employer] [address] [place] [address] Annmarie Madera Self - patient is the insured 5 [id number] [facility] PART A FI [address] [facility] [phone] Annmarie Madera Self - patient is the insured [id number]
[2023-01-15] MEDS ORDERED: LACTULOSE SYRUP 10GM/15ML 30ML UDC PO PRN (12:15)
[2023-01-15] MEDS ORDERED: ACETAMINOPHEN 325 MG TABLET PO PRN (12:15)
[2023-01-15] MEDS ORDERED: ONDANSETRON INJECTION 4 MG/2 ML (SDV) IV PRN (12:15)
[2023-01-15] MEDS ORDERED: ANTACID SUSPENSION 30 ML UDC PO PRN (12:15)
[2023-01-15] MEDS ORDERED: CALCIUM CARBONATE 500 MG CHEW TABLET PO PRN (12:15)
[2023-01-15] MEDS ORDERED: MILK OF MAGNESIA 400 MG/5 ML 30 ML UDC PO PRN (12:15)
[2023-01-15] MEDS ORDERED: MELATONIN 3 MG TABLET PO PRN (12:15)
[2023-01-15] MEDS ORDERED: ONDANSETRON 4 MG ORAL DISSOLVE TABLET PO PRN (12:15)
[2023-01-15] MEDS ORDERED: NS IV 500 ML 500 ML IV PRN (12:15)
[2023-01-15] MEDS ORDERED: BISACODYL 10 MG SUPPOSITORY PR PRN (12:15)
[2023-01-15] MEDS ORDERED: PIPERACILLIN/Tazobactam 4.5 GM in NS (IVPB) 100 ML 100 ML IV NR (12:30)
[2023-01-15] MEDS: LACTATED RINGERS 1,000 ML 1,000 ML IV SCH (12:39)
[2023-01-15 12:48] LABS: BASOPHILS # (AUTO) 0.1 10^3/uL (0.0-0.1); BASOPHILS % (AUTO) 1 % (0-10); EOSINOPHILS # (AUTO) 0.4 10^3/uL (0.0-0.3); EOSINOPHILS % (AUTO) 4 % (0-10); HEMATOCRIT 32 % (35-52); HEMOGLOBIN 10.7 g/dL (11.5-16.0); LYMPHOCYTES # (AUTO) 0.9 10^3/uL (1.0-4.0); LYMPHOCYTES % (AUTO) 10 % (12-44); MEAN CORPUSCULAR HEMOGLOBIN 28 pg (25-34); MEAN CORPUSCULAR HGB CONC 33 g/dL (32-36); MEAN CORPUSCULAR VOLUME 86 fL (80-99); MEAN PLATELET VOLUME 9.1 fL (9.0-12.2); MONOCYTES # (AUTO) 0.5 10^3/uL (0.0-1.0); MONOCYTES % (AUTO) 6 % (0-12); NEUTROPHILS # (AUTO) 7.1 10^3/uL (1.8-7.8); NEUTROPHILS % (AUTO) 78 % (42-75); PLATELET COUNT 423 10^3/uL (130-400); WHITE BLOOD COUNT 9.1 10^3/uL (4.3-11.0)
[2023-01-15 12:59] LABS: POTASSIUM 4.3 MMOL/L (3.6-5.0)
[2023-01-15 13:00] LABS: CALCIUM 8.3 MG/DL (8.5-10.1)
[2023-01-15 13:01] LABS: TOTAL PROTEIN 5.8 GM/DL (6.4-8.2)
[2023-01-15 13:03] LABS: BILIRUBIN,TOTAL 0.5 MG/DL (0.1-1.0)
[2023-01-15 13:05] LABS: CREATININE SERUM 0.98 MG/DL (0.60-1.30)
[2023-01-15] MEDS ORDERED: predniSONE 20 MG TABLET PO ONE (13:15)
[2023-01-15] MEDS ORDERED: predniSONE 10 MG TABLET PO NR (13:15)
[2023-01-15 13:30] VITALS: BP 119/61
--- NOTE | 2023-01-15 13:37 | History & Physical ---
BRADLEY JACK MD, RESIDENT 01/15/23 1337: HPI History of Present Illness: CC: Pneumonia Patient is a 77-year-old female with a past medical history of brain cancer and a history of lung cancer who presented as a direct admit from the oncology clinic for pneumonia concerns. Patient was noted to be hypoxic requiring 4 L nasal cannula and had crackles noted on auscultation, thus there was concern that patient may have pneumonia. She does note that she has had a cough productive of clear sputum that is been ongoing for about 1 to 2 weeks. In addition she notes bilateral upper abdominal pain particularly when walking. She does note that she had a fever about 2 weeks ago. However she denies any other symptoms. Does note that she has constipation but this has been occurring chronically. She is a former smoker, quit 27 years ago, denies any alcohol or drug use. Patient is currently receiving treatment with Keytruda. Source: patient, RN/MD Exam Limitations: no limitations Date seen by provider: Jan 15, 2023 Time Seen by Provider: 14:28 Attending Physician Matthew Hernandez MD PCP Admitting Physician: Colleen Blakely MD Attending Physician: Colleen Blakely MD Consult Date of Admission Jan 15, 2023 at 12:03 Home Medications Home Medications Reviewed patient Home Medication Reconciliation performed by pharmacy medication reconciliations organic extractions technician and/or nursing. Patients Allergies have been reviewed. Allergies Coded Allergies: clonidine (Verified Adverse Reaction, Unknown, Nausea, 12/24/22) NTF-Cpsvly-Qogugl Hx Patient Social History Smoking Status: Former Smoker 2nd Hand Smoke Exposure: No Recent Hopitalizations: No Alcohol Use?: No Tobacco type used: Cigarettes Immunizations Up To Date Tetanus Booster (TDap): Unknown Influenza Vaccine Up-to-Date: No; Not Current First/Initial COVID19 Vaccinat: 2020 Second COVID19 Vaccination Jignesh: 2020 Third COVID19 Vaccination Date: X2 Family Medical History Significant Family History: CAD Over 55 Years Old Other Significan Family Hx: Diabetes in mom, emphysema and dad, lung cancer in sister Family History: Congenital heart disease DAUGHTER Diabetes mellitus 19 MOTHER Myocardial infarction 19 MOTHER Review of Systems (CHC) Constitutional: dizziness, fever EENTM: No nose congestion Respiratory: cough, phlegm; No short of breath Cardiovascular: No chest pain, No edema, No palpitations Gastrointestinal: abdominal pain, constipation; No diarrhea, No nausea, No vomiting Genitourinary: No dysuria Musculoskeletal: No no symptoms reported Skin: No no symptoms reported Psychiatric/Neurological: Denies Headache Reviewed Test Results Reviewed Test Results Lab Laboratory Tests 01/15/23 12:30: White Blood Count 9.1, Red Blood Count 3.79L, Hemoglobin 10.7L, Hematocrit 32L, Mean Corpuscular Volume 86, Mean Corpuscular Hemoglobin 28, Mean Corpuscular Hemoglobin Concent 33, Red Cell Distribution Width 14.2, Platelet Count 423H, Mean Platelet Volume 9.1, Immature Granulocyte % (Auto) 0, Neutrophils (%) (Auto) 78H, Lymphocytes (%) (Auto) 10L, Monocytes (%) (Auto) 6, Eosinophils (%) (Auto) 4, Basophils (%) (Auto) 1, Neutrophils # (Auto) 7.1, Lymphocytes # (Auto) 0.9L, Monocytes # (Auto) 0.5, Eosinophils # (Auto) 0.4H, Basophils # (Auto) 0.1, Immature Granulocyte # (Auto) 0.0, Sodium Level 132L, Potassium Level 4.3, Chloride Level 99, Carbon Dioxide Level 23, Anion Gap 10, Blood Urea Nitrogen 15, Creatinine 0.98, Estimat Glomerular Filtration Rate 60, BUN/Creatinine Ratio 15, Glucose Level 113H, Lactic Acid Level 1.09, Calcium Level 8.3L, Corrected Calcium 9.1, Total Bilirubin 0.5, Aspartate Amino Transf (AST/SGOT) 13, Alanine Aminotransferase (ALT/SGPT) 8, Alkaline Phosphatase 107, Total Protein 5.8L, Albumin 3.0L 01/15/23 12:40: Influenza Type A (RT-PCR) Not Detected, Influenza Type B (RT-PCR) Not Detected, SARS-CoV-2 RNA (RT-PCR) Not Detected Physical Exam-(CHC) Physical Exam Vital Signs VS - Last 72 Hours, by Label 01/15/23 01/15/23 01/15/23 01/15/23 12:11 12:16 12:30 12:45 Pulse 84 76 75 82 Resp 25 19 12 B/P (MAP) 134/55 (81) 114/60 (78) 96/60 (72) Pulse Ox 94 95 94 O2 Delivery Nasal Cannula Nasal Cannula Nasal Cannula O2 Flow Rate 4.00 4.00 4.00 11/9/23 11/9/23 11/9/23 11/9/23 13:00 13:30 14:00 14:12 Pulse 83 79 74 Resp 9 9 B/P (MAP) 86/57 (67) 119/61 (80) Pulse Ox 90 97 94 97 O2 Delivery Nasal Cannula Nasal Cannula Nasal Cannula O2 Flow Rate 4.00 4.00 2.00 FiO2 28 Capillary Refill : General Appearance: no apparent distress HEENT: PERRL/EOMI, normal ENT inspection Neck: non-tender Respiratory: chest non-tender, no respiratory distress, no accessory muscle use, other (Noting crackles in right upper and lower lung field as well as bases of left lung) Cardiovascular: regular rate, rhythm, no edema, no murmur, other (Port noted in right side of chest) Gastrointestinal: normal bowel sounds, non tender, soft Extremities: normal range of motion Neurologic/Psychiatric: alert, oriented x 3 Skin: normal color, warm/dry Assessment/Plan Assessment/Plan Admission Dx Pneumonia Admission Status: Inpatient Order (span 2 midnights) Reason for Inpatient Admission: Pneumonia requiring IV antibiotics in an immunocompromise patient (1) Pneumonia Status: Acute Assessment & Plan: Patient presumed to have pneumonia based on physical exam findings and the fact that she is immunocompromise due to her cancer treatment. Plan: Follow-up chest x-ray findings Continue IV Zosyn Due to a side effect related to patient's cancer medication, there is a possibility of adrenal insufficiency and thus we will treat with daily steroid (2) Dizziness Status: Resolved Assessment & Plan: Continue IV antibiotics and fluids as needed (3) Brain lesion Status: Chronic Assessment & Plan: Currently receiving treatment with Keytruda. We will consult oncology for further recommendations. (4) Lung cancer Status: Chronic Assessment & Plan: See above. Of note, patient is on oxygen at home, uses 2 L. COLLEEN BLAKELY MD 01/16/23 7834: Home Medications Allergies Coded Allergies: clonidine (Verified Adverse Reaction, Unknown, Nausea, 12/24/22) OXS-Khocog-Htufgu Hx Family Medical History Family History: Congenital heart disease DAUGHTER Diabetes mellitus 19 MOTHER Myocardial infarction 19 MOTHER Supervisory-Addendum Brief Supervisory Addendum I personally performed the noonan portions of the visit, discussed case with resident and concur with resident documentation of history, physical exam, assessment and treatment plan unless otherwise noted. I saw the patient today 01/16/23. BRADLEY JACK MD, RESIDENT Jan 15, 2023 13:37 COLLEEN BLAKELY MD Jan 16, 2023 17:14
[2023-01-15] MEDS ORDERED: IPRA3AMP31 NEB (14:27)
[2023-01-15] MEDS ORDERED: VIT-31 PO (14:27)
[2023-01-15] MEDS ORDERED: ALBU18HF2 INH (14:27)
[2023-01-15] MEDS ORDERED: SERT-413 PO (14:27)
--- NOTE | 2023-01-15 15:26 | Tele-ICU Progress Note ---
Subjective Date Seen by a Provider: Jan 15, 2023 Time Seen by a Provider: 15:19 Subjective/Events-last exam (Tele-ICU Physician , Progress Note ) Service provided via interactive audio and video telecommunications E-CARE s te to a patient admitted to ICU bed in [facility]. Patient is seen today due to persistent need of ICU care Available chart/ vitals / labs / Images reviewed Video assessment done using teleICU camera, rest of exam as per RN she is a 77 yr old female with hx of lung cancer with brain mets who received radiation treatment currently on keytruda treatment was admitted directly from oncology clinic due to the suspicion of having pneumonia and hypoxic. She had moderate dry cough but no fever or chest pain. denies any headache or nausea and vomiting. cxr done today showed marked worsening of infiltrates. Impression. 1. bilateral pneumonia in patient who is immuno compromised. 2. hypoxia due to pneumonia. 3. Possible adrenal insufficiency. 4. Metastatic lung cancer. Recommendations. 1. Hydrate patient. 2. broad spectrum antibiotics. 3. sputum and blood c/s 4. supplemental oxygen. 5. po prednisone. 6. Bronchodilators as needed 7. DVT prophylaxis. Collaboration of care with primary care and bed side consultants Certain portions of this document may have been dictated utilizing voice recognition technology such as Strutta. Inherent to this technology, typogra phical and grammatical errors may exist. As much as I am diligent to identify and correct to these mistakes, some errors may remain in the document. Critical care time devoted to this patient today is approximately is--25 minutes. Sepsis Event Evaluation Height, Weight, BMI Height: 5'6.00" Weight: 171lbs. 8.0oz. 77.256580pz; 28.90 BMI Method:Stated Focused Exam Lactate Level 01/15/23 12:30: Lactic Acid Level 1.09 Lactic Acid Level Laboratory Tests Test 01/15/23 12:30 Lactic Acid Level 1.09 MMOL/L (0.50-2.00) Exam Exam Patient acknowledged, consented, and participated in this virtual visit which was conducted using real time audio/video Vital Signs Date Time Temp Pulse Resp B/P (MAP) Pulse Ox O2 Delivery O2 Flow Rate FiO2 01/15/23 14:12 97 Nasal Cannula 2.00 01/15/23 14:00 74 9 119/61 (80) 94 Nasal Cannula 4.00 01/15/23 13:30 79 97 28 01/15/23 13:00 83 9 86/57 (67) 90 Nasal Cannula 4.00 01/15/23 12:45 82 12 96/60 (72) 94 Nasal Cannula 4.00 01/15/23 12:35 91 Nasal Cannula 2.00 01/15/23 12:30 75 19 114/60 (78) 95 Nasal Cannula 4.00 01/15/23 12:16 76 25 134/55 (81) 94 Nasal Cannula 4.00 01/15/23 12:11 84 Height & Weight Height: 5'6.00" Weight: 171lbs. 8.0oz. 77.284914ki; 28.90 BMI Method:Stated General Appearance: Chronically ill Gastrointestinal: normal bowel sounds, non tender, soft Results Lab Laboratory Tests 01/15/23 12:30 Assessment/Plan Assessment/Plan as above Critical Care: Critically Ill Patient Time spent with patient (mins): 25 SHUN WILCOX MD Jan 15, 2023 15:26
[2023-01-15] MEDS ORDERED: FLU HIGH DOSE (65+ YOA) 240 MCG/0.7 ML 2023-24 (FLUZONE) IM ONE (15:45)
[2023-01-15] MEDS ORDERED: RT-ALBUTEROL SULF 2.5 MG/3 ML PRE-MIX VIAL INH PRN (16:00)
[2023-01-15] MEDS: ENOXAPARIN 40 MG/0.4 ML SYRINGE SC SCH (16:03)
[2023-01-15] MEDS: RT-ALBUTEROL SULF 2.5 MG/3 ML PRE-MIX VIAL INH SCH ×2 (18:47→22:27)
[2023-01-15] MEDS: DOCUSATE SODIUM 100 MG CAPSULE PO SCH (20:33)
[2023-01-15] MEDS: PIPERACILLIN/Tazobactam 4.5 GM in NS (IVPB) 100 ML 100 ML IV SCH (20:33)
[2023-01-15] MEDS: SENNOSIDES 8.6 MG TABLET PO SCH (20:33)
[2023-01-16] MEDS: LACTATED RINGERS 1,000 ML 1,000 ML IV SCH (00:18)
[2023-01-16] MEDS: PIPERACILLIN/Tazobactam 4.5 GM in NS (IVPB) 100 ML 100 ML IV SCH ×3 (02:34→18:06)
[2023-01-16 03:01] LABS: BASOPHILS % (AUTO) 0 % (0-10); EOSINOPHILS % (AUTO) 0 % (0-10); HEMATOCRIT 29 % (35-52); HEMOGLOBIN 9.7 g/dL (11.5-16.0); LYMPHOCYTES # (AUTO) 0.4 10^3/uL (1.0-4.0); LYMPHOCYTES % (AUTO) 7 % (12-44); MEAN CORPUSCULAR HEMOGLOBIN 28 pg (25-34); MEAN CORPUSCULAR HGB CONC 33 g/dL (32-36); MEAN CORPUSCULAR VOLUME 85 fL (80-99); MEAN PLATELET VOLUME 9.1 fL (9.0-12.2); MONOCYTES # (AUTO) 0.2 10^3/uL (0.0-1.0); MONOCYTES % (AUTO) 4 % (0-12); NEUTROPHILS # (AUTO) 4.8 10^3/uL (1.8-7.8); NEUTROPHILS % (AUTO) 87 % (42-75); PLATELET COUNT 353 10^3/uL (130-400); WHITE BLOOD COUNT 5.5 10^3/uL (4.3-11.0)
[2023-01-16] MEDS: RT-ALBUTEROL SULF 2.5 MG/3 ML PRE-MIX VIAL INH SCH ×6 (03:01→22:03)
[2023-01-16 03:12] LABS: POTASSIUM 4.3 MMOL/L (3.6-5.0)
[2023-01-16 03:13] LABS: CALCIUM 8.5 MG/DL (8.5-10.1)
[2023-01-16 03:17] LABS: CREATININE SERUM 1.05 MG/DL (0.60-1.30)
[2023-01-16 03:20] LABS: MAGNESIUM 2.1 MG/DL (1.6-2.4)
[2023-01-16 03:32] LABS: LYMPHOCYTES % (MANUAL) 9 %; MICROCYTOSIS SLIGHT; MONOCYTES % (MANUAL) 2 %; NEUTROPHILS % (MANUAL) 89 %
[2023-01-16] MEDS ORDERED: POTASSIUM CHLORIDE 20 MEQ TABLET PO SCH (06:00)
[2023-01-16] MEDS ORDERED: POTASSIUM CL 10MEQ/50ML IVPB 50 ML IV SCH (06:00)
[2023-01-16] MEDS ORDERED: MAGNESIUM 1 GM/100 ML IVPB 100 ML IV SCH (06:00)
[2023-01-16] MEDS: predniSONE 10 MG TABLET PO SCH (06:37)
[2023-01-16] MEDS ORDERED: predniSONE 20 MG TABLET PO SCH (07:00)
[2023-01-16] MEDS: SENNOSIDES 8.6 MG TABLET PO SCH ×2 (07:59→20:25)
[2023-01-16] MEDS: DOCUSATE SODIUM 100 MG CAPSULE PO SCH ×2 (07:59→20:25)
--- NOTE | 2023-01-16 08:47 | Diagnostic Imaging Report ---
CHEST 1 VIEW, AP/PA ONLY Indication: Pneumonia Comparison: 01/15/2023 Findings: Stable right IJ Port-A-Cath. Multifocal pulmonary consolidations have not changed. No pleural effusion or pneumothorax. Normal heart size. Impression: 1. Stable bilateral multifocal pulmonary consolidations. Dictated by: Dictated on workstation # [id number]
--- NOTE | 2023-01-16 11:50 | Physical Therapy Evaluation ---
PT Evaluation-General Medical Diagnosis Admission Date Jan 15, 2023 at 12:03 Medical Diagnosis: hypoxia/bilateral pneumonia Onset Date: Jan 15, 2023 Therapy Diagnosis Therapy Diagnosis: debility Height/Weight Height (Feet): 5 Height (Inches): 6.00 Weight (Pounds): 171 Weight (Ounces): 8.0 Precautions Precautions/Isolations: Fall Prevention, Standard Precautions Weight Bear Status Right Lower Extremity: Right Weight Bearing/Tolerated Left Lower Extremity: Left Weight Bearing/Tolerated Referral Physician: Clinton Reason for Referral: Evaluation/Treatment Medical History Additional Medical History brain and lung cancer Current History admit from cancer center due to hypoxia Reviewed History: Yes Social History Home: Single Level Current Living Status: Other Family Entry Into Home: Stairs With Railing PT Steps Into Home: 2 Prior Prior Level of Function SCALE: Activities may be completed with or without assistive devices. 8-Cgkzwdoyal-gohrola completes the activity by him/herself with no assistance from a helper. 5-Set-up or Clean-up Assistance-helper sets up or cleans up; patient completes activity. [place] assists only prior to or following the activity. 4-Supervision or Touching Assistance-helper provides verbal cues and/or touching/steadying and/or contact guard assistance as patient completes activity. Assistance may be provided throughout the activity or intermittently. 3-Partial/Moderate Assistance-helper does LESS THAN HALF the effort. Wellington lifts, holds or supports trunk or limbs, but provides less than half the effort. 2-Substantial/Maximal Assistance-helper does MORE THAN HALF the effort. [place] lifts or holds trunk or limbs and provides more than half the effort. 2-Rrbxmpzdf-wjmyvb does ALL the effort. Patient does none of the effort to complete the activity. Or, the assistance of 2 or more helpers is required for the patient to complete the activity. If activity was not attempted, code reason: 7-Patient Refused. 9-Not Applicable-not attempted and the patient did not perform the activity before the current illness, exacerbation or injury. 10-Not Attempted due to Environmental Limitations-(lack of equipment, weather restraints, etc.). 88-Not Attempted due to Medical Conditions or Safety Concerns. Bed Mobility: 6 Transfers (B,C,W/C): 6 Gait: 6 Stairs: 6 Indoor Mobility (Ambulation): Independent Stairs: Independent Prior Devices Use: None PT Evaluation-Current Subjective Patient agrees to PT. Family present Objective Patient Orientation: Normal For Age Attachments: Central Line, Oxygen (2L NC) ROM/Strength ROM Lower Extremities bilateral LE WFL Strength Lower Extremities 4/5 grossly bilateral LE all planes Integumentary/Posture Bowel Incontinence: No Bladder Incontinence: No Posture WFL Neuromuscular (Tone, Coordination, Reflexes) grossly intact Sensory Vision: Wears Glasses Hearing: Functional Transfers Lying to Sitting/Side of Bed(Q: 6 Sit to Stand (QC): 6 Chair/Exa-nd-Wnxct Xfer(QC): 6 Gait Mode of Locomotion: Walk Anticipated Mode of Locomotion: Walk Walk 10 feet (QC): 6 Walk 50 ft with 2 Turns(QC): 6 Walk 150 ft (QC): 6 Distance: 275' Gait Assistive Device: None Comments/Gait Description safe and functional with no deviation Balance Sitting Static: Normal Sitting Dynamic: Normal Standing Static: Normal Standing Dynamic: Normal Assessment/Needs Patient is currently at independent LOF with all gross motor skills and does not require skilled PT intervention at this time. Rehab Potential: Fair PT Plan Treatment/Plan Treatment Plan: Discontinue PT Treatment Duration: Jan 16, 2023 Frequency: 1 time per week Estimated Hrs Per Day: .25 hour per day Patient and/or Family Agrees t: Yes Time Time In: 1125 Time Out: 1141 DATE: Jan 16, 2023 Total Billed Treatment Time: 16 Total Billed Treatment 1 visit EVMod 16 min KALEY HALLMAN PT Jan 16, 2023 11:50
--- NOTE | 2023-01-16 13:14 | Progress Note ---
BRADLEY JACK MD, RESIDENT 01/16/23 1314: Subjective Subjective/Events-last exam Patient is doing well this morning. Does not have any concerns at this time. She has not gotten a chance to get up and walk around as of yet and so is unsure if she still having the abdominal pain that she was describing yesterday. However she is not having any on my evaluation this morning. She has been tolerating oral intake. Review of Systems General: No Chills, No Fatigue HEENT: No Head Aches Pulmonary: No Dyspnea, No Cough Cardiovascular: No: Chest Pain, Palpitations, Edema Gastrointestinal: No: Nausea, Vomiting, Diarrhea, Constipation Genitourinary: No Dysuria Focused Exam Lactate Level 01/15/23 12:30: Lactic Acid Level 1.09 Objective Exam Last Set of Vital Signs Vital Signs Date Time Temp Pulse Resp B/P (MAP) Pulse Ox O2 Delivery O2 Flow Rate FiO2 01/16/23 10:46 99 Nasal Cannula 2.00 01/16/23 10:00 93 25 116/56 (69) 01/16/23 05:33 36.7 01/15/23 13:30 28 Capillary Refill : I&O Intake and Output 01/16/23 00:00 Intake Total 950 ml Balance 950 ml Intake Oral 850 ml IV Total 100 ml # Voids 4 Daily Weight Change Yes, 2-13 lbs General: Alert, Oriented X3 HEENT: Atraumatic, EOMI Neck: Supple Lungs: Normal Air Movement, Other (Continue to note crackles on left lung field and base of right lung) Heart: Regular Rate, No Murmurs Abdomen: Normal Bowel Sounds, Soft, No Tenderness Extremities: No Edema Skin: No Rashes Neuro: Normal Speech Psych/Mental Status: Mental Status NL Results/Procedures Lab Laboratory Tests 01/16/23 02:50: White Blood Count 5.5, Red Blood Count 3.43L, Hemoglobin 9.7L, Hematocrit 29L, Mean Corpuscular Volume 85, Mean Corpuscular Hemoglobin 28, Mean Corpuscular Hemoglobin Concent 33, Red Cell Distribution Width 14.0, Platelet Count 353, Mean Platelet Volume 9.1, Immature Granulocyte % (Auto) 0, Neutrophils (%) (A uto) 87H, Lymphocytes (%) (Auto) 7L, Monocytes (%) (Auto) 4, Eosinophils (%) (Auto) 0, Basophils (%) (Auto) 0, Neutrophils # (Auto) 4.8, Lymphocytes # (Auto) 0.4L, Monocytes # (Auto) 0.2, Eosinophils # (Auto) 0.0, Basophils # (Auto) 0.0, Immature Granulocyte # (Auto) 0.0, Neutrophils % (Manual) 89, Lymphocytes % (Manual) 9, Monocytes % (Manual) 2, Microcytosis SLIGHT, Sodium Level 135, Potassium Level 4.3, Chloride Level 103, Carbon Dioxide Level 21, Anion Gap 11, Blood Urea Nitrogen 14, Creatinine 1.05, Estimat Glomerular Filtration Rate 55, BUN/Creatinine Ratio 13, Glucose Level 233H, Calcium Level 8.5, Magnesium Level 2.1 Microbiology 01/15/23 Blood Culture - Preliminary, Resulted Gram Positive Cocci See Comments 01/15/23 MRSA Screen - Final, Complete MRSA not isolated Assessment/Plan Assessment/Plan (1) Pneumonia Status: Acute Assessment & Plan: Patient presumed to have pneumonia based on physical exam findings and the fact that she is immunocompromise due to her cancer treatment. Plan: Chest x-ray notable for multifocal pneumonia Continue IV Zosyn, plan to transition to oral tomorrow and likely will discharge tomorrow Due to a side effect related to patient's cancer medication, there is a possibility of adrenal insufficiency and thus we will treat with daily steroid Discussed with Dr. Evans, will plan to continue high-dose steroid until patient follows up at oncology clinic Stable for transfer to the fourth floor (2) Dizziness Status: Resolved Assessment & Plan: Continue IV antibiotics and fluids as needed (3) Brain lesion Status: Chronic Assessment & Plan: Currently receiving treatment with Keytruda. We will consult oncology for further recommendations. (4) Lung cancer Status: Chronic Assessment & Plan: See above. Of note, patient is on oxygen at home, uses 2 L. JOSSY BLAKELY MD 01/16/23 2954: Supervisory-Addendum Brief Supervisory Addendum I personally performed the noonan portions of the visit, discussed case with resident and concur with resident documentation of history, physical exam, assessment and treatment plan unless otherwise noted. BRADLEY JACK MD, RESIDENT Jan 16, 2023 13:14 JOSSY BLAKELY MD Jan 16, 2023 17:07
[2023-01-16] MEDS ORDERED: RT-Ipratropium/Albuterol NEB 3 ML VIAL INH PRN (13:45)
[2023-01-16] MEDS: ENOXAPARIN 40 MG/0.4 ML SYRINGE SC SCH (15:50)
[2023-01-16 16:10] VITALS: BP 111/56
[2023-01-16 19:11] VITALS: BP 104/62
[2023-01-16] MEDS ORDERED: SERTRALINE 50 MG TABLET PO SCH (21:00)
[2023-01-16] MEDS ORDERED: PANTOPRAZOLE 40 MG TABLET PO SCH (21:00)
[2023-01-17 00:11] VITALS: BP 125/69
[2023-01-17] MEDS: RT-ALBUTEROL SULF 2.5 MG/3 ML PRE-MIX VIAL INH SCH ×3 (02:30→10:11)
[2023-01-17] MEDS: PIPERACILLIN/Tazobactam 4.5 GM in NS (IVPB) 100 ML 100 ML IV SCH ×2 (03:13→11:28)
[2023-01-17 03:16] VITALS: BP 113/61
[2023-01-17] MEDS: predniSONE 10 MG TABLET PO SCH (06:30)
[2023-01-17 06:46] LABS: BASOPHILS % (AUTO) 0 % (0-10); EOSINOPHILS % (AUTO) 0 % (0-10); HEMATOCRIT 31 % (35-52); HEMOGLOBIN 9.6 g/dL (11.5-16.0); LYMPHOCYTES # (AUTO) 0.5 10^3/uL (1.0-4.0); LYMPHOCYTES % (AUTO) 4 % (12-44); MEAN CORPUSCULAR HEMOGLOBIN 27 pg (25-34); MEAN CORPUSCULAR HGB CONC 31 g/dL (32-36); MEAN CORPUSCULAR VOLUME 87 fL (80-99); MEAN PLATELET VOLUME 8.8 fL (9.0-12.2); MONOCYTES # (AUTO) 0.9 10^3/uL (0.0-1.0); MONOCYTES % (AUTO) 7 % (0-12); NEUTROPHILS # (AUTO) 10.8 10^3/uL (1.8-7.8); NEUTROPHILS % (AUTO) 87 % (42-75); PLATELET COUNT 449 10^3/uL (130-400); WHITE BLOOD COUNT 12.3 10^3/uL (4.3-11.0)
[2023-01-17 06:53] LABS: POTASSIUM 4.4 MMOL/L (3.6-5.0)
[2023-01-17 06:54] LABS: CALCIUM 8.7 MG/DL (8.5-10.1)
[2023-01-17 06:59] LABS: CREATININE SERUM 0.95 MG/DL (0.60-1.30)
[2023-01-17] MEDS: FLUTICASONE/VILANTEROL 100/25 MCG (14 DOSES) IH SCH ×2 (07:00→07:01)
[2023-01-17] MEDS: TIOTROPIUM INH 4 GM (SPIRIVA Respimat) IH SCH ×2 (07:00→07:01)
[2023-01-17 07:42] VITALS: BP 103/55
--- NOTE | 2023-01-17 08:14 | Discharge Summary ---
BRADLYE JACK MD, RESIDENT 01/17/23 0813: Discharge Summary Hospital Course Problems/Diagnosis: (1) Pneumonia Status: Acute Assessment & Plan: Patient presumed to have pneumonia based on physical exam findings and the fact that she is immunocompromise due to her cancer treatment. Chest x-ray notable for multifocal pneumonia. Plan: Continue IV Zosyn We will transition to Augmentin 875 mg twice daily for 5 days Patient was able to provide sputum sample however may not grow anything, will continue to follow and adjust medication as needed Discussed with Dr. Evans, will plan to continue high-dose steroid until patient follows up at oncology clinic - Blood culture growing 1 bottle strep viridans, likely a contaminant Qualifiers: Qualified Codes: J18.9 - Pneumonia, unspecified organism (2) Brain lesion Status: Chronic Assessment & Plan: Currently receiving treatment with Keytruda. We will consult oncology for further recommendations. (3) Lung cancer Status: Chronic Assessment & Plan: See above. Of note, patient is on oxygen at home, uses 2 L. Qualifiers: Qualified Codes: C34.90 - Malignant neoplasm of unspecified part of unspecified bronchus or lung Hospital Course Date of Admission: Jan 15, 2023 at 12:03 Admission Diagnosis : Family Physician/Provider: Matthew Hernandze MD Date of Discharge: 01/17/23 Discharge Diagnosis: Pneumonia Hospital Course: Is a 77-year-old female with a past medical history of brain cancer and lung cancer who presented as a direct admit from the oncology clinic with pneumonia. Patient was noted to be hypoxic requiring 4 L nasal cannula and had crackles throughout her lung meadows noted on auscultation. At baseline, patient uses 2 L of oxygen at home. She had been having cough and bilateral upper abdominal pain when walking. Chest x-ray obtained on admission was notable for multifocal pneumonia. We thus treated patient with IV Zosyn and who is able to wean oxygen down to her baseline. We also had patient on prednisone 75 mg per oncology's recommendations due to side effects that may be associated with Keytruda. Blood culture from her port did grow strep viridans in 1 bottle however this was tho ught to likely be a contaminant. Will be discharged home on Augmentin to complete treatment of her pneumonia. She is to take high-dose prednisone until follow-up in the oncology clinic. Patient was otherwise stable prior to discharge. Labs and Pending Lab Test: Laboratory Tests 01/17/23 06:38: White Blood Count 12.3H, Red Blood Count 3.53L, Hemoglobin 9.6L, Hematocrit 31L, Mean Corpuscular Volume 87, Mean Corpuscular Hemoglobin 27, Mean Corpuscular Hemoglobin Concent 31L, Red Cell Distribution Width 14.6H, Platelet Count 449H, Mean Platelet Volume 8.8L, Immature Granulocyte % (Auto) 1, Neutrophils (%) (Auto) 87H, Lymphocytes (%) (Auto) 4L, Monocytes (%) (Auto) 7, Eosinophils (%) (Auto) 0, Basophils (%) (Auto) 0, Neutrophils # (Auto) 10.8H, Lymphocytes # (Auto) 0.5L, Monocytes # (Auto) 0.9, Eosinophils # (Auto) 0.0, Basophils # (Auto) 0.0, Immature Granulocyte # (Auto) 0.2H, Sodium Level 139, Potassium Level 4.4, Chloride Level 106, Carbon Dioxide Level 24, Anion Gap 9, Blood Urea Nitrogen 11, Creatinine 0.95, Estimat Glomerular Filtration Rate 62, BUN/Creatinine Ratio 12, Glucose Level 140H, Calcium Level 8.7, Magnesium Level 2.0 Microbiology 01/15/23 Blood Culture - Preliminary, Resulted 01/15/23 MRSA Screen - Final, Complete MRSA not isolated Home Meds Active Reported Eye Multivitamin Tablet (Vit A/Vit C/Vit E/Zinc/Copper) 2,148-113 Tablet 1 Each PO DAILY Ventolin Hfa (Albuterol Sulfate) 90 Mcg Hfa.aer.ad 2 Puff INH Q6H PRN Iprat-Albut 0.5-3(2.5) mg/3 ml (Ipratropium/Albuterol Sulfate) 0.5 Mg-3 Mg (2.5 Mg Base)/3 Ml Ampul.neb 3 Ml NEB Q6H PRN Sertraline HCl 50 Mg Tablet 50 Mg PO HS Trelegy Ellipta 100-62.5-25 (Fluticasone/Umeclidin/Vilanter) 100-62.5 Blst.w.dev 1 Each IH DAILY Pantoprazole Sodium 40 Mg Tablet.dr 40 Mg PO HS Assessment/Pt DC Instructions Please see electronic discharge instructions given to patient. Discharge Diet: No Restrictions Activity as Tolerated: Yes Consulations Consultations Oncology Discharge Physical Examination Allergies: Coded Allergies: clonidine (Verified Adverse Reaction, Unknown, Nausea, 12/24/22) General Appearance: No Apparent Distress HEENT: Normal ENT Inspection Respiratory: Chest Non Tender, No Accessory Muscle Use, No Respiratory Distress, Other (Doing some crackles in the left upper and lower lung field however improved compared to yesterday, mild crackles at the base of the right lung) Cardiovascular: Regular Rate, Rhythm, No Edema, No Murmur Gastrointestinal: Normal Bowel Sounds, Soft, Tenderness (Diffuse abdominal tenderness, worse in the bilateral upper quadrants) Extremity: No Pedal Edema Skin: Normal Color, Warm/Dry Neurologic/Psychiatric: Alert, Oriented x3 NICHOLAS SALVADOR MD 01/17/23 1235: Discharge Summary Discharge Physical Examination Allergies: Coded Allergies: clonidine (Verified Adverse Reaction, Unknown, Nausea, 12/24/22) Physician Addendum Addendum I personally have seen and evaluated the patient and performed the physical exam. I agree with the documented assessment and plan. Progress 12:34 BRADLEY JACK MD, RESIDENT Jan 17, 2023 08:13 NICHOLAS SALVADOR MD Jan 17, 2023 12:35
[2023-01-17] MEDS ORDERED: NON-FORMULARY MEDICATION 1 EA EA (Fluticasone/Umeclidin/Vilanter (Trelegy Ellipta 100-62.5 IH SCH (09:00)
[2023-01-17] MEDS: SENNOSIDES 8.6 MG TABLET PO SCH (09:04)
[2023-01-17] MEDS: DOCUSATE SODIUM 100 MG CAPSULE PO SCH (09:04)
[2023-01-17] MEDS ORDERED: PRD10T PO (11:19)
[2023-01-17] MEDS ORDERED: AMOX-355 PO (11:19)
[2023-01-17 12:15] VITALS: BP 139/45
[2023-01-17 14:36] VITALS: BP 139/45
== END 2023-01-17 14:40 | disposition home or self-care (01) | DRG 194 ==
LOC: ICU 12:03 → 4TH 01-16 11:49
PROVIDERS: ADMIT Family Medicine; ATTEND Family Medicine
DX: J18.9 Pneumonia, unspecified organism (principal); C34.90 Malignant neoplasm of unspecified part of unspecified bronchus or lung; C79.31 Secondary malignant neoplasm of brain; R09.02 Hypoxemia; K59.09 Other constipation; Z99.81 Dependence on supplemental oxygen; Z87.891 Personal history of nicotine dependence; Z88.8 Allergy status to other drugs, medicaments and biological substances; Z23 Encounter for immunization
CPT/HCPCS: 36415; 71045; 80048; 80053; 83605; 83735; 85007; 85025; 85027; 87040; 87070; 87077; 87081; 87205; 87636; 90662; 94640; 94760

== ENCOUNTER → 2023-01-15 | Outpatient (CLI) | payer MEDICARE ==
[~2023-01-15] MED LIST changes: +ALBU18HF2 INH; +AMOX-355 PO; +IPRA3AMP31 NEB; +PRD10T PO; +SERT-413 PO; +VIT-31 PO
--- NOTE | 2023-01-15 11:34 | Diagnostic Imaging Report ---
EXAMINATION: PA and lateral chest at 1038 hours. INDICATION: Fever. FINDINGS: The heart size is within normal limits and stable when compared to 10/29/2022. However, in the interval since the prior exam, alveolar/interstitial pulmonary infiltrates have developed in the left lung base and in the right upper lobe and to a lesser extent the right lower lobe and the left upper lobe. These findings are most likely due to pneumonia/atelectasis. There is no sign of a pleural effusion. The chronic pulmonary changes noted previously are again visualized. The mediastinum is not widened. The osseous structures are intact. The right-sided Port-A-Cath seen on the previous study is again evident. The tip continues to overlie the mid portion of the superior vena cava. IMPRESSION: 1. The appearance of the chest has worsened since the prior exam as bilateral pneumonia/atelectasis has developed. 2. These results were called to the [facility] at the time of this dictation. Dictated by: Dictated on workstation # [id number]
== END ==
LOC: RAD 10:25
PROVIDERS: ATTEND Internal Medicine Hematology & Oncology
DX: C34.90 Malignant neoplasm of unspecified part of unspecified bronchus or lung (principal)
CPT/HCPCS: 71046

== ENCOUNTER 2023-01-19 09:51 | Outpatient (RCR) | payer MEDICARE ==
[~2023-01-19 09:51] MED LIST changes: +ALBU18HF2 INH; +AMOX-355 PO; +IPRA3AMP31 NEB; +PRD10T PO; +SERT-413 PO; +VIT-31 PO
== END 2023-01-21 11:37 | disposition home or self-care (01) ==
LOC: ONC 09:51
PROVIDERS: ATTEND Internal Medicine Hematology & Oncology
DX: Z51.11 Encounter for antineoplastic chemotherapy (principal); Z45.2 Encounter for adjustment and management of vascular access device; C34.90 Malignant neoplasm of unspecified part of unspecified bronchus or lung; C79.31 Secondary malignant neoplasm of brain; E78.2 Mixed hyperlipidemia; Z87.891 Personal history of nicotine dependence; Z83.3 Family history of diabetes mellitus; Z01.89 Encounter for other specified special examinations

== ENCOUNTER 2023-01-26 10:49 | Outpatient (RCR) | payer MEDICARE ==
[2023-01-26 12:21] LABS: BASOPHILS % (AUTO) 0 % (0-10); EOSINOPHILS % (AUTO) 0 % (0-10); HEMATOCRIT 38 % (35-52); HEMOGLOBIN 11.8 g/dL (11.5-16.0); LYMPHOCYTES # (AUTO) 0.8 10^3/uL (1.0-4.0); LYMPHOCYTES % (AUTO) 6 % (12-44); MEAN CORPUSCULAR HEMOGLOBIN 28 pg (25-34); MEAN CORPUSCULAR HGB CONC 31 g/dL (32-36); MEAN CORPUSCULAR VOLUME 92 fL (80-99); MEAN PLATELET VOLUME 9.2 fL (9.0-12.2); MONOCYTES # (AUTO) 0.7 10^3/uL (0.0-1.0); MONOCYTES % (AUTO) 5 % (0-12); NEUTROPHILS # (AUTO) 11.7 10^3/uL (1.8-7.8); NEUTROPHILS % (AUTO) 87 % (42-75); PLATELET COUNT 327 10^3/uL (130-400); WHITE BLOOD COUNT 13.4 10^3/uL (4.3-11.0)
[2023-01-26 12:33] LABS: ALBUMIN 3.2 GM/DL (3.2-4.5); POTASSIUM 4.3 MMOL/L (3.6-5.0)
[2023-01-26 12:34] LABS: CALCIUM 8.2 MG/DL (8.5-10.1)
[2023-01-26 12:35] LABS: TOTAL PROTEIN 5.9 GM/DL (6.4-8.2)
[2023-01-26 12:37] LABS: BILIRUBIN,TOTAL 0.3 MG/DL (0.1-1.0)
[2023-01-26 12:39] LABS: CREATININE SERUM 1.06 MG/DL (0.60-1.30)
[2023-01-26] MEDS ORDERED: NS IV 1000 ML (CANCER CTR) IV SCH (13:08)
[2023-01-26] MEDS ORDERED: PEMBROLIZUMAB 200 MG in NS (IVPB) 50 ML 50 ML IV SCH (13:08)
[2023-01-26] MEDS ORDERED: HEParin (CENTRAL IV FLUSH) 500 UNIT/5 ML SYR IV PRN (13:08)
[2023-01-26 14:14] VITALS: BP 102/61
== END 2023-02-05 | disposition home or self-care (01) ==
LOC: ONC 10:49
PROVIDERS: ATTEND Internal Medicine Hematology & Oncology
DX: Z51.11 Encounter for antineoplastic chemotherapy (principal); Z45.2 Encounter for adjustment and management of vascular access device; C34.90 Malignant neoplasm of unspecified part of unspecified bronchus or lung; C79.31 Secondary malignant neoplasm of brain; E78.2 Mixed hyperlipidemia; Z87.891 Personal history of nicotine dependence; Z83.3 Family history of diabetes mellitus
CPT/HCPCS: 80053; 82378; 84443; 85025; 96413; 96523; G0463; 99214